=== PATIENT | female | born 1990 | race Caucasian/White ===

== ENCOUNTER → 2019-04-04 | Outpatient (CLI) | payer OTHER ==
--- NOTE | 2019-04-04 13:00 | Diagnostic Imaging Report ---
INDICATION: survey. TECHNIQUE: Multiple Real-time grayscale images were obtained over the gravid uterus. COMPARISON: None FINDINGS: There is a single live fetus in a breech presentation. The heart rate was recorded at 133 BPM. The placenta is anterior. The amniotic fluid index is 14.4 cm. The cervical length is 7.3 cm. The survey demonstrates the kidneys, bladder, and stomach to be unremarkable. The brain is unremarkable. There is a four-chamber heart. There is a three-vessel cord with normal insertion. The spine is unremarkable. MEASUREMENTS: Biometrical measurements are as follows: Biparietal 4.81 cm, age 20 weeks 4 days. Head circumference 18.51 cm, age 21 weeks 0 days. Abdominal circumference 15.96 cm, age 21 weeks 1 days. Femur length 3.58 cm, age 21 weeks 3 days. Sonographic estimate age: 21 weeks 1 days. Sonographic estimated date of delivery: 08/14/2019. Estimated Weight: 402 gm (+/- 59 gm). LMP percentile: 52%. heart rate: 133 beats per minute. number: 1 of 1. IMPRESSION: Single live IUP of 21 weeks 1 day gestational age. The estimated date of confinement sonographically is 08/14/2019. Dictated by: Dictated on workstation # [id number]
== END ==
LOC: RAD 11:40
PROVIDERS: ATTEND Nurse Practitioner Women's Health
DX: Z36.89 Encounter for other specified antenatal screening (principal); Z3A.21 21 weeks gestation of pregnancy
CPT/HCPCS: 76805

== ENCOUNTER → 2019-06-29 | Outpatient (CLI) | payer OTHER ==
--- NOTE | 2019-06-29 11:58 | Diagnostic Imaging Report ---
INDICATION: Biophysical profile, gestational diabetes. TECHNIQUE: Multiple real-time grayscale images were obtained over the gravid uterus. COMPARISON: 04/04/2019 FINDINGS: A single live intrauterine gestation is identified in a cephalic presentation. The placenta is anteriorly located without evidence of placenta previa. No evidence of placental abruption. The cervix is closed measuring 4.3 cm. No cervical funneling. cardiac motion is documented at 132 bpm. Amniotic fluid index is within normal limits at 12.6 cm with the largest single pocket measuring 4.1 cm. anatomy was not specifically evaluated on this examination. biometrics are consistent with an estimated gestational age of 33 weeks and 5 days. Therefore, there is an estimated due date based on the examination of 08/12/2019. Findings are consistent with clinical dating. However, there is slight asymmetry of the biometrics with the head circumference measuring 35 weeks and 1 day with the abdominal circumference measuring 32 weeks and 2 days. Sonographic estimate age: 33 weeks 5 days. Sonographic estimated date of delivery: 08/12/19. Estimated Weight: 2069 gm (+/- 302 gm). LMP percentile: 29%. heart rate: 132 beats per minute. number: 1 of 1. Biophysical profile score: breathing movements: 2 out of 2 movements: 2 out of 2 tone and posterior: 2 out of 2 Amniotic fluid volume: 2 out of 2 Total score: 8 out of 8 IMPRESSION: Single live intrauterine gestation in a cephalic presentation with an estimated gestational age of 33 weeks and 5 days. Therefore, there is an estimated due date based on this examination of 08/12/2019. Findings are consistent with clinical dating and there has been adequate interval growth since the prior examination. Slight asymmetry in biometrics with the head measuring larger than the abdomen and femur by approximately 2-3 weeks. This may simply be physiologic for the patient at this time, though developing asymmetric intrauterine growth restriction should be considered. Therefore, recommend a follow-up ultrasound in 2 weeks to reevaluate evaluate growth. Biophysical profile score of 8 out of 8 Dictated by: Dictated on workstation # [id number]
== END ==
LOC: RAD 10:02
PROVIDERS: ATTEND Obstetrics & Gynecology
DX: O24.410 Gestational diabetes mellitus in pregnancy, diet controlled (principal); Z3A.23 23 weeks gestation of pregnancy
CPT/HCPCS: 76805; 76819

== ENCOUNTER → 2019-07-11 | Outpatient (CLI) | payer OTHER ==
--- NOTE | 2019-07-11 10:40 | Diagnostic Imaging Report ---
INDICATION: Gestational diabetes. TECHNIQUE: Multiple Real-time grayscale images were obtained over the gravid uterus. COMPARISON: 06/29/2019. FINDINGS: There is a single living intrauterine . Biometry correlates with a gestational age of 35 weeks 4 days. The fetus is in cephalic presentation. There is a normal volume of amniotic fluid. The placenta is anterior with no previa. The heart rate is 116 BPM and regular. The biophysical profile score is 8 out of 8. Biometrical measurements are as follows: Biparietal 8.92 cm, age 36 weeks 1 days. Head circumference 32.96 cm, age 37 weeks 4 days. Abdominal circumference 31.35 cm, age 35 weeks 2 days. Femur length 6.44 cm, age 33 weeks 2 days. Sonographic estimate age: 35 weeks 4 days. Sonographic estimated date of delivery: 08/11/19. Estimated Weight: 2580 gm (+/- 377 gm). LMP percentile: 48%. heart rate: 116 beats per minute. number: 1 of 1. IMPRESSION: Single living intrauterine fetus with a sonographically estimated gestational age of 35 weeks 4 days and an estimated date of confinement of 08/11/2019. Normal biophysical profile score of 8 out of 8 Dictated by: Dictated on workstation # [id number]
== END ==
LOC: RAD 08:30
PROVIDERS: ATTEND Obstetrics & Gynecology
DX: O24.410 Gestational diabetes mellitus in pregnancy, diet controlled (principal); Z3A.35 35 weeks gestation of pregnancy
CPT/HCPCS: 76805; 76819

== ENCOUNTER 2019-07-28 10:33 | Outpatient (CLI) | payer OTHER ==
[~2019-07-28] VITALS: Ht 160 cm; Wt 74.6 kg
--- NOTE | 2019-07-28 10:40 | NUR ---
TESSIE HUA presented to unit via from ED, accompanied by self , with c/o CONTRACTIONS. TESSIE HUA weighed, gowned, voided, and to bed. EFHM and TOCO applied, VS taken. TESSIE HUA oriented to bed controls, call light, TV, heat, and A/C controls.
[2019-07-28 11:15] VITALS: BP 123/83
--- NOTE | 2019-07-28 11:17 | NUR ---
Notified Dr Lan of outpt admission with irregular contractions - will defer pt to Dr Teran whom is internal control specialist.
--- NOTE | 2019-07-28 11:57 | NUR ---
Dr Teran called with 2 pts admission. 1209 Physician returned call - informed physician of , 37.3 weeks with contractions 6-8 minutes apart and 1cm with thick cervix and reactive strip. Will observe for another hour and re check cervix.
[2019-07-28] MEDS ORDERED: ACYC400T PO (13:03)
[2019-07-28] MEDS ORDERED: PNV1TABL94 PO (13:03)
--- NOTE | 2019-07-28 13:10 | NUR ---
Vag exam external os in 2-3cms but internal os is 1 cm and thick. Discharged to home with instructions of when to return. Verbalized understanding of written and verbal instructions.
--- NOTE | 2019-07-29 08:26 | Physician Query-Final Dx ---
JOSÉ FLAHERTY 07/29/19 0826: Clinic Account Progress/Dx Physician Query: Please give diagnosis Please include # weeks gestation Date of Service Jul 28, 2019 at 10:33 ROXANE JONES DO 07/29/19 1159: Clinic Account Progress/Dx DIAGNOSIS: Diagnosis 37 week IUP GDMA2 Uterine contractions JOSÉ FLAHERTY July 29, 2019 08:26 ROXANE JONES DO July 29, 2019 11:59
== END 2019-07-28 13:31 | disposition home or self-care (01) ==
LOC: WSo 10:33 → LDRP 10:33 → WSo 13:31
PROVIDERS: ATTEND Obstetrics & Gynecology
DX: O24.419 Gestational diabetes mellitus in pregnancy, unspecified control (principal); O62.9 Abnormality of forces of labor, unspecified; Z3A.37 37 weeks gestation of pregnancy
CPT/HCPCS: 99214

== ENCOUNTER 2019-08-09 06:59 | Inpatient (IN) | payer OTHER ==
[2019-08-09] VITALS (52 sets, daily range): BP systolic 112–157; BP diastolic 58–97
[~2019-08-09] VITALS: Ht 160 cm; Wt 76.0 kg
[~2019-08-09 06:59] MED LIST: ACYC400T PO; PNV1TABL94 PO
--- NOTE | 2019-08-09 07:02 | NUR ---
TESSIE HUA presented to unit via ambulatory from ED, accompanied by Garcia, with c/o INDUCTION. TESSIE HUA weighed, gowned, voided, and to bed. EFHM and TOCO applied, VS taken. TESSIE HUA oriented to bed controls, call light, TV, heat, and A/C controls.
--- OUTSIDE RECORDS SUMMARY | 2019-08-09 07:06 | XMS REPORT ---
Author Author Kaylah Pinzon [facility] Address [address] [place], [place] [id number] Care Team Providers Care Ux Architect Name Role Phone Ricardo Pinzon PCP Roxane Calixto PreferredProvider Unavailable Allergies and Adverse Reactions Name Reaction Notes codeine sulfate passed out Plan of Treatment Planned Activity Comments Planned Date Planned Time Plan/Goal HIV 1 antibody detection 06/16/2016 12:00 AM Urinalysis dipstick (done in clinic) 12/02/2017 12:0 0 AM Medications Active Name Start Date Estimated Completion Date SIG Co mments alprazolam 0.25 mg oral tablet 10/08/2018 t les 1 tablet by oral route 2 times a day for 30 days Name Start Date Expiration Date SIG Comments Diflucan 150 mg oral tablet 05/21/2009 05/22/2009 take 1 tablet (150 mg) by oral route once Phenergan 25 mg rectal suppository 05/24/2009 05/28/2009 insert 1 suppository (25 mg) by rectal route every 6 hours as needed for 4 days Zithromax Z-Chacho 250 mg oral tablet 04/12/2010 04/17/2010 take 2 tablets (500 mg) by oral route once daily for 1 day then 1 tablet (250 mg) by oral route once daily for 4 days acyclovir 400 mg oral tablet 09/02/2010 09/07/2010 mynor e 1 tablet by oral route 3 times a day for 5 days Diflucan 150 mg oral tablet 01/10/2011 01/12/2011 take 1 tablet (150 mg) by oral route today and repeat in one week permethrin 5 % topical cream 02/19/2011 02/20/2011 bert ly (thoroughly massage into skin from head to soles of feet) by topical route once leave on for 8-14 hours and then remove by thorough washing for 1 day Bactrim DS 800-160 mg oral tablet 07/14/2013 07/24/2013 take 1 tablet by oral route 2 times a day for 10 days Medrol (Chacho) 4 mg oral tablets,dose pack 07/14/2013 07/20/19 14 take as directed for 5 days Diflucan 150 mg oral tablet 05/24/2014 05/25/2014 take 1 tablet (150 mg) by oral route every 30 days for 1 day Zithromax Z-Chacho 250 mg oral tablet 07/24/2015 07/29/2015 take 2 tablets (500 mg) by oral route once daily for 1 day then 1 tablet (250 mg) by oral route once daily for 4 days prednisone 20 mg oral tablet 07/24/2015 08/01/2015 4x2 days 3x2 days 2x2 days 1x2 days Valtrex 1 gram oral tablet 01/15/2016 01/26/2016 take 1 tablet (1,000 mg) by oral route 2 times per day for 1 day Zithromax Z-Chacho 250 mg oral tablet 03/05/2016 03/10/2016 take 2 tablets (500 mg) by oral route once daily for 1 day then 1 tablet (250 mg) by oral route once daily for 4 days amoxicillin 875 mg oral tablet 06/03/2017 t les 1 tablet (875 mg) by oral route every 12 hours for 7 days sulfamethoxazole-trimethoprim 800-160 mg oral tablet 12/03/2017 12/10/2017 take 1 tablet by oral route every 12 hours for 7 days Lexapro 5 mg oral tablet 12/14/2017 03/14/2018 take 1 tablet (5 mg) by oral route once daily for 30 days acyclovir 400 mg oral tablet 2018 04/09/2018 mynor e 1 tablet (400 mg) by oral route every 8 hours for 5 days Sprintec (28) 0.25-35 mg-mcg oral tablet 2018 019 take 1 tablet by oral route once daily for 84 days clorazepate dipotassium 3.75 mg oral tablet 04/12/201805/12 take 1 tablet (3.75 mg) by oral route 2 times per day for 30 days Protonix 20 mg oral tablet,delayed release (DR/EC) 04/21/2018 06/20/2018 take 1 tablet (20 mg) by oral route once daily for 30 days Carafate 1 gram oral tablet 05/03/2018 06/02/2018 take 1 tablet (1 gram) by oral route 4 times per day on an empty stomach 1 hour before meals and at bedtime for 14 days (dissolve in small amount of water and drink) Medrol (Chacho) 4 mg oral tablets,dose pack 05/10/2018 05/15/19 19 take as directed for 5 days Discontinued Name Start Date Discontinued Date SIG Comments Bactrim DS 800-160 mg oral tablet 05/21/2009 07/30/2010 take 1 tablet by oral route 2 times per day Keflex 500 mg oral capsule 06/17/2010 07/30/2010 one PO TID Medrol (Chacho) 4 mg oral tablets,dose pack 06/17/2010 07/30/2010 take as directed Paxil 20 mg oral tablet 10/07/2010 05/16/2011 take 1 t ablet (20 mg) by oral route once daily Macrobid 100 mg oral capsule 10/30/2010 05/16/2011 mynor e 1 capsule by oral route 2 times a day Amiekristopher [facility] 27-400-1.13-250 [id number]-if-mg oral capsule 07/07/2011 04/21/2012 take 1 capsule by oral route once daily for 30 days lidocaine HCl 2 % mucous membrane gel 07/25/2011 04/05/2012 apply to affected area bid x 7 days Valtrex 500 mg oral tablet 01/21/2012 04/21/2012 take 1 tablet (500 mg) by oral route once daily for 30 days no meds 05/03/2014 acyclovir 400 mg oral tablet 12/17/2016 2018 mynor e 1 tablet (400 mg) by oral route 2 times per day Tamiflu 75 mg oral capsule 04/29/2017 05/19/2017 take 1 capsule (75 mg) by oral route 2 times per day for 5 days ciprofloxacin HCl 500 mg oral tablet 12/02/2017 12/03/2017 take 1 tablet by oral route daily for 5 days Xanax 0.25 mg oral tablet 12/07/2017 12/14/2017 take 1 /2 to 1 tablet bid prn anxiety clonazepam 0.5 mg oral tablet 12/14/2017 2018 ta ke 1 tablet by oral route once a day (at bedtime) Xanax oral 04/12/2018 Lo Loestrin Fe 1 mg-10 mcg (24)/10 mcg (2) oral tablet 8 2018 take 1 tablet by oral route once daily for 84 days Problem List Description Status Onset Herpes genitalis Active Papanicolaou smear of cervix with low gr charity squamous intraepithelial lesion (LGSIL) Active 05/16/2011 VICENTE (generalized anxiety disorder) Active 11/07 Vital Signs Date Time BP-Sys(mm[Hg] BP-Myra(mm[Hg]) HR(bpm) RR(rpm) Temp WT HT HC BMI BSA BMI Percentile O2 Sat(%) 03/14/2019 9:34:00 AM 120 mm[Hg] 72 mm[Hg] 11/23/2018 8:19:00 AM 122 mm[Hg] 80 mm[Hg] 84 {beats}/min 18 rpm 98.2 F 132 lbs 64 in 22.66 kg/m2 1.64 m2 98 % 08/06/2018 11:32:00 AM 124 mm[Hg] 82 mm[Hg] 82 {beats}/min 18 rpm 98.1 F 134 lbs 64 in 23.0008 kg/m2 1.6567 m2 98 % 05/10/2018 9:23:00 AM 110 mm[Hg] 70 mm[Hg] 88 {beats}/min 18 rpm 98.1 F 128 lbs 64 in 21.97 kg/m2 1.62 m2 98 % 05/03/2018 1:44:00 PM 110 mm[Hg] 80 mm[Hg] 77 {beats}/min 16 rpm 97.9 F 130 lbs 64 in 22.3142 kg/m2 1.6318 m2 98 % 04/12/2018 4:53:00 PM 106 mm[Hg] 66 mm[Hg] 78 {beats}/min 16 rpm 99.3 F 130.125 lbs 64 in 22.34 kg/m2 1.63 m2 97 % 03/11/2018 10:14:00 AM 112 mm[Hg] 73 mm[Hg] 75 {beats}/min 98.6 F 132 lbs 64 in 22.6575 kg/m2 1.6443 m2 2018 9:24:00 AM 122 mm[Hg] 78 mm[Hg] 78 {beats}/min 17 rpm 98.2 F 129.25 lbs 64 in 22.19 kg/m2 1.63 m2 100 % 01/13/2018 4:29:00 PM 110 mm[Hg] 60 mm[Hg] 58 {beats}/min 16 rpm 98.2 F 129.25 lbs 64 in 22.1855 kg/m2 1.6271 m2 100 % 12/14/2017 8:49:00 AM 118 mm[Hg] 62 mm[Hg] 68 {beats}/min 16 rpm 98.4 F 133.25 lbs 64 in 22.87 kg/m2 1.65 m2 98 % 11/04/2017 4:35:00 PM 114 mm[Hg] 76 mm[Hg] 80 {beats}/min 16 rpm 98.8 F 125.25 lbs 64 in 21.4989 kg/m2 1.6017 m2 100 % 10/28/2017 4:57:00 PM 118 mm[Hg] 72 mm[Hg] 62 {beats}/min 18 rpm 98.1 F 128.25 lbs 64 in 22.01 kg/m2 1.62 m2 99 % 06/03/2017 5:49:00 PM 114 mm[Hg] 78 mm[Hg] 66 {beats}/min 18 rpm 97.8 F 128.5 lbs 64 in 22.0567 kg/m2 1.6223 m2 100 % 05/19/2017 11:19:00 AM 118 mm[Hg] 78 mm[Hg] 70 {beats}/min 18 rpm 97.2 F 128.25 lbs 64 in 22.01 kg/m2 1.62 m2 99 % 04/29/2017 3:48:00 PM 122 mm[Hg] 76 mm[Hg] 114 {beats}/min 18 rpm 99.8 F 125.125 lbs 64 in 21.4774 kg/m2 1.6009 m2 97 % 12/17/2016 9:02:00 AM 119 mm[Hg] 74 mm[Hg] 81 {beats}/min 97.1 F 13 1 lbs 64 in 22.49 kg/m2 1.64 m2 10/29/2016 2:07:00 PM 105 mm[Hg] 68 mm[Hg] 66 {beats}/min 16 rpm 98.2 F 124 lbs 64 in 21.2843 kg/m2 1.5937 m2 98 % 03/05/2016 8:37:00 AM 118 mm[Hg] 78 mm[Hg] 67 {beats}/min 16 rpm 98.2 F 148 lbs 63 in 26.22 kg/m2 1.73 m2 98 % 11/05/2015 3:43:00 PM 119 mm[Hg] 76 mm[Hg] 76 {beats}/min 98.1 F 137 lbs 63 in 24.2682 kg/m2 1.662 m2 02/12/2015 2:29:00 PM 120 mm[Hg] 70 mm[Hg] 74 {beats}/min 16 rpm 98 F 137 lbs 63 in 24.27 kg/m2 1.66 m2 97 % 05/24/2014 1:50:00 PM 118 mm[Hg] 79 mm[Hg] 92 {beats}/min 97.6 F 14 5 lbs 63 in 25.6853 kg/m2 1.7098 m2 05/03/2014 12:20:00 PM 118 mm[Hg] 64 mm[Hg] 72 {beats}/min 16 rpm 98.1 F 144 lbs 63 in 25.51 kg/m2 1.70 m2 99 % 07/14/2013 2:17:00 PM 122 mm[Hg] 62 mm[Hg] 94 {beats}/min 16 rpm 97.6 F 136.25 lbs 63 in 24.1354 kg/m2 1.6574 m2 98 % 04/07/2013 11:12:00 AM 118 mm[Hg] 64 mm[Hg] 68 {beats}/min 16 rpm 98.5 F 141 lbs 63 in 24.98 kg/m2 1.69 m2 98 % 04/21/2012 2:18:00 PM 110 mm[Hg] 60 mm[Hg] 70 {beats}/min 18 rpm 96.9 F 136.25 lbs 63 in 24.1354 kg/m2 1.6574 m2 97 % 04/05/2012 3:12:00 PM 118 mm[Hg] 84 mm[Hg] 76 {beats}/min 98.2 F 141.25 lbs 63 in 25.02 kg/m2 1.69 m2 07/07/2011 9:18:00 AM 118 mm[Hg] 67 mm[Hg] 79 {beats}/min 97.8 F 144.375 lbs 63 in 25.5746 kg/m2 1.7061 m2 05/16/2011 9:38:00 AM 117 mm[Hg] 77 mm[Hg] 76 {beats}/min 99.4 F 137.5 lbs 63 in 24.36 kg/m2 1.67 m2 01/29/2011 10:11:00 AM 112 mm[Hg] 78 mm[Hg] 80 {beats}/min 1 38.312 lbs 63 in 24.5007 kg/m2 1.6699 m2 10/30/2010 3:29:00 PM 110 mm[Hg] 78 mm[Hg] 76 {beats}/min 135 lbs 10/07/2010 9:39:00 AM 104 mm[Hg] 74 mm[Hg] 76 {beats}/min 138 lbs 10/03/2010 2:49:00 PM 118 mm[Hg] 72 mm[Hg] 78 {beats}/min 98.4 F 07/30/2010 1:27:00 PM 126 mm[Hg] 81 mm[Hg] 85 {beats}/min 99.3 F 141 lbs 64 in 24.2023 kg/m2 1.6994 m2 06/17/2010 3:48:00 PM 110 mm[Hg] 64 mm[Hg] 76 {beats}/min 143.5 62 lbs 01/31/2010 1:34:00 PM 112 mm[Hg] 76 mm[Hg] 76 {beats}/min 141.25 l bs 05/31/2009 10:46:00 AM 102 mm[Hg] 60 mm[Hg] 74 {beats}/min 130 lbs 05/21/2009 2:06:00 PM 118 mm[Hg] 74 mm[Hg] 76 {beats}/min 135 lbs Social History Name Description Comments Alcohol Use - Occasional Tobacco Current every day smoker History of Procedures Date Ordered Description Order Status 11/05/2015 12:00 AM SPECIMEN HANDLING OFFICE-LAB Reviewed 11/05/2015 12:00 AM CYTOPATH C/V THIN LAYER Reviewed 11/05/2015 12:00 AM HPV (DNA/RNA probe) Reviewed 05/16/2011 12:00 AM REMOVE INTRAUTERINE DEVICE Reviewed 05/16/2011 12:00 AM CYTOPATH C/V THIN LAYER Reviewed 05/16/2011 12:00 AM SPECIMEN HANDLING OFFICE-LAB Reviewed 07/07/2011 12:00 AM CYTOPATH C/V THIN LAYER Reviewed 07/07/2011 12:00 AM SPECIMEN HANDLING OFFICE-LAB Reviewed 07/07/2011 12:00 AM N.GONORRHOEAE DNA AMP PROB Reviewed 07/07/2011 12:00 AM CHLAMYDIA CULTURE Reviewed 07/07/2011 12:00 AM OBSTETRIC PANEL Reviewed 07/07/2011 12:00 AM HIV-1ANTIBODY Reviewed 07/07/2011 12:00 AM URINALYSIS AUTO W/SCOPE Reviewed 07/07/2011 12:00 AM TRANSVAGINAL US OBSTETRIC Reviewed 03/05/2016 12:00 AM THER/PROPH/DIAG INJ SC/IM Reviewed 03/05/2016 12:00 AM Decadron 8mg Injection Reviewed 03/05/2016 12:00 AM Depo-Medrol 80mg Injection Reviewed 03/05/2016 12:00 AM BEHAV CHNG SMOKING 3-10 MIN Reviewed 10/14/2011 12:00 AM OB US >/= 14 WKS SNGL FETUS Reviewed 12/11/2011 12:00 AM GLUCOSE TEST Reviewed 12/11/2011 12:00 AM COMPLETE CBC W/AUTO DIFF WBC Reviewed 12/11/2011 12:00 AM Type and screen Reviewed 12/17/2016 10:42 AM URINE TEST Reviewed 12/17/2016 12:00 AM SPECIMEN HANDLING OFFICE-LAB Reviewed 12/17/2016 12:00 AM CYTOPATH C/V THIN LAYER Reviewed 01/28/2012 12:00 AM CULTURE OTHR SPECIMN AEROBIC Reviewed 04/05/2012 12:00 AM CYTOPATH C/V MANUAL Reviewed 04/05/2012 12:00 AM SPECIMEN HANDLING OFFICE-LAB Reviewed 06/03/2017 12:00 AM Decadron 8mg Injection Reviewed 06/03/2017 12:00 AM Depo-Medrol 80mg Injection Reviewed 06/03/2017 12:00 AM Rocephin 1 gram Injection Reviewed 06/03/2017 12:00 AM THER/PROPH/DIAG INJ SC/IM Reviewed 12/02/2017 11:17 AM URINALYSIS AUTO W/O SCOPE Reviewed 12/02/2017 12:00 AM URINE BACTERIA CULTURE Reviewed 01/15/2018 12:00 AM US EXAM ABDOM COMPLETE Returned 01/13/2018 12:00 AM ROUTINE VENIPUNCTURE Reviewed 01/13/2018 12:00 AM BL SMEAR W/DIFF WBC COUNT Returned 01/13/2018 12:00 AM COMPREHEN METABOLIC PANEL Returned 01/13/2018 12:00 AM ASSAY OF AMYLASE Returned 01/13/2018 12:00 AM ASSAY OF LIPASE Returned 01/13/2018 12:00 AM C-REACTIVE PROTEIN Returned 2018 12:00 AM SPECIMEN HANDLING OFFICE-LAB Reviewed 2018 12:00 AM CHLAMYDIA CULTURE Reviewed 2018 12:00 AM N.GONORRHOEAE DNA AMP PROB Reviewed 2018 12:00 AM CYTOPATH C/V THIN LAYER Reviewed 2018 12:00 AM DETECT AGENT NOS DNA AMP Reviewed 2018 12:00 AM TRICHOMONAS VAGINALIS AMPLIF Reviewed 03/11/2018 10:21 AM URINE TEST Reviewed 03/11/2018 12:00 AM BX/CURETT OF CERVIX W/SCOPE Reviewed 03/11/2018 12:00 AM EXAM/BIOPSY OF VAG W/SCOPE Reviewed 03/11/2018 12:00 AM ENDOCERV CURETTAGE W/SCOPE Reviewed 08/03/2018 12:00 AM TB INTRADERMAL TEST Reviewed 11/20/2018 12:00 AM THER/PROPH/DIAG INJ SC/IM Reviewed 11/20/2018 12:00 AM Decadron 8mg Injection Reviewed 11/20/2018 12:00 AM Depo-Medrol 80mg Injection Reviewed 11/20/2018 12:00 AM Rocephin 1 gram Injection Reviewed 01/17/2019 8:32 AM URINE TEST Reviewed 05/03/2014 12:00 AM THER/PROPH/DIAG INJ SC/IM Reviewed 05/03/2014 12:00 AM Decadron, Per 1 Mg [facility] [place] [address]-63 Re viewed 05/03/2014 12:00 AM Depo-Medrol, Per 80 Mg [facility] [place]3764-3494-51 Reviewed 07/30/2010 12:00 AM CYTOPATH TBS C/V MANUAL Reviewed 07/30/2010 12:00 AM SPECIMEN HANDLING OFFICE-LAB Reviewed 07/30/2010 12:00 AM CHLAMYDIA CULTURE Reviewed 07/30/2010 12:00 AM N.GONORRHOEAE DNA AMP PROB Reviewed 07/30/2010 12:00 AM HTLV/HIV CONFIRMJ ANTIBODY Reviewed 07/30/2010 12:00 AM HEPATITIS B SURFACE AG EIA Reviewed 07/30/2010 12:00 AM HEPATITIS C AB TEST Reviewed 07/30/2010 12:00 AM SYPHILIS TEST NON-TREP QUAL Reviewed 07/30/2010 12:00 AM HERPES SIMPLEX SESAR ANTBDY Reviewed 07/30/2010 12:00 AM HIV-1ANTIBODY Reviewed 05/24/2014 12:00 AM SPECIMEN HANDLING OFFICE-LAB Reviewed 05/24/2014 12:00 AM CYTOPATH C/V THIN LAYER Reviewed 10/03/2010 12:00 AM URINE TEST Reviewed 10/03/2010 12:00 AM BX/CURETT OF CERVIX W/SCOPE Reviewed 10/30/2010 12:00 AM URINALYSIS AUTO W/O SCOPE Reviewed Results Summary Date and Description Results 08/06/2011 4:27 PM WBC 8.4 RBC 4.22 HGB 12.90 g /dLHCT 36.70 %MCV 87.0 fLMCH 30.60 pgMCHC 35.10 g/dLRDW SD 39 RDW CV 12.20 %MPV 10.0 fLPLT 277 NRBC# 0.00 NRBC% 0.0 %NEUT 72.0 %%LYMP 20.70 %%MONO 5.40 %%EOS 1.70 %%BASO 0.20 %#NEUT 6.04 #LYMP 1.74 #MONO 0.45 #EOS 0.14 #BASO 0.02 MANUAL DIFF NOT IND COLOR STRAW APPEARANCE CLEAR SPEC GRAV 1.010 pH 6.5 PROTEIN NEGATIVE GLUCOSE NEGATIVE KETONE NEGATIVE BILIRUBIN NEGATIVE BLOOD NEGATIVE NITRITE NEGATIVE LEUK SCREEN NEGATIVE WBC/HPF NEGATIVE RBC/HPF NEGATIVE CASTS/LPF NEGATIVE CRYSTALS NEGATIVE MUCOUS THRDS NEGATIVE BACTERIA NEGATIVE EPITH CELLS FEW SQUAMOUS TRICHOMONAS NEGATIVE YEAST NEGATIVE CULT ORDERED YES 12/11/2011 10:15 AM WBC 9.0 RBC 4.04 HGB 12.50 g /dLHCT 36.10 %MCV 89.0 fLMCH 30.90 pgMCHC 34.60 g/dLRDW SD 40 RDW CV 12.60 %MPV 9.80 fLPLT 234 NRBC# 0.00 NRBC% 0.0 %NEUT 76.0 %%LYMP 17.70 %%MONO 5.40 %%EOS 0.80 %%BASO 0.10 %#NEUT 6.82 #LYMP 1.59 #MONO 0.48 #EOS 0.07 #BASO 0.01 MANUAL DIFF NOT IND ABO/Rh Type A Positive Antibody Screen-Gel Negative 12/17/2016 10:42 AM Test, Urine negati ve 12/02/2017 11:17 AM Clarity Ur clear Urine-Color yuni Glucose Ur-sCnc neg Bilirub Ur Ql neg Ketones Ur Ql Strip neg Sp Gr Ur Qn 1.010 Hgb Ur Ql Strip mod pH Ur- LsCnc 7.0 Prot Ur Ql Strip 30 mg/dL Urobilinogen Ur-mCnc 0.2 E.U./dL Nitrite Ur Ql Strip neg WBC # Ur mod 03/11/2018 10:38 AM Test, Urine negati ve 01/17/2019 8:32 AM Test, Urine Positi ve History Of Immunizations Name Date Admin Mfg Name Mfg Code Trade Name Lot# Route Inj Vis Given Vis Pub CVX Tdap 03/22/2012 Not Entered NE Not Entered Not Entered Not E ntered 03/31/2012 03/30/2019 999 Influenza 09/29/2011 Not Entered NE Not Entered Not Entered N ot Entered 03/31/2012 03/30/2019 111 History of Past Illness Name Date of Onset Comments Cellulitis May 21 2009 2:08PM Urinary Tract Infection May 21 2009 2:08PM Routine gynecological examination May 31 2009 10:47AM Herpes genitalis Papanicolaou smear of cervix with low gr charity squamous intraepithelial lesion (LGSIL) 05/16/2011 Bronchitis, Acute Jan 31 2010 1:34PM Seasonal Allergies Jan 31 2010 1:34PM Pharyngitis, Acute Jan 31 2010 1:34PM Cough Jun 17 2010 3:48PM Post-nasal drainage Jun 17 2010 3:48PM Upper Respiratory Infection Jun 17 2010 3:48PM Routine gynecological examination Jul 30 2010 1:27PM High-Risk Sexual Behavior Jul 30 2010 1:27PM Special investigations and examinations; examination or test; examination or test, negative result Oct 03 2010 2:57PM Low grade squamous intraepithelial lesion (LGSIL) on P ap smear Oct 03 2010 2:47PM Anxiety Disorder Oct 07 2010 9:37AM Carbuncle/Furuncle Oct 07 2010 9:37AM VICENTE (generalized anxiety disorder) 11/07/2016 Dysuria Oct 30 2010 3:27PM Urinary Tract Infection Oct 30 2010 3:27PM Scabies Jan 29 2011 10:07AM IUD removal May 16 2011 10:13AM Papanicolaou smear of cervix with low gr charity squamous intraepithelial lesion (LGSIL) May 16 2011 9:42AM test confirmed positive Jul 07 2011 9:22AM , Other Normal Sep 24 2011 3:23PM , Other Normal Dec 11 2011 9:10AM Group B Strep Screening, Jan 28 2012 9:32AM , Other Normal Jan 28 2012 9:32AM Post- Follow-Up Apr 05 2012 3:14PM Postoperative Follow-up: Cholecystectomy Apr 21 2012 2:23PM [facility] Exam Apr 07 2013 11:13AM Seasonal Allergies Jul 14 2013 2:17PM Post-nasal drainage Jul 14 2013 2:17PM Upper Respiratory Infection Jul 14 2013 2:17PM Allergic Rhinitis Jul 14 2013 2:17PM Upper Respiratory Infection May 03 2014 12:23PM Respiratory System And Chest Symptoms May 03 2014 12:23PM Sinus pressure May 03 2014 12:23PM Routine gynecological examination May 24 2014 1:55PM Herpes Genitalis May 24 2014 1:55PM Eustachian tube dysfunction, bilateral Feb 12 2015 2:29PM Mild Chronic Seasonal Allergies Feb 12 2015 2:29PM Acute pharyngitis, unspecified etiology Feb 12 2015 2:29PM Moderate Acute Post-nasal drainage Feb 12 2015 2:29PM Moderate Acute Ear pressure, bilateral Feb 12 2015 2:29PM Routine gynecological examination Nov 05 2015 3:46PM Moderate Acute Cough Mar 05 2016 8:39AM Acute bronchitis, unspecified organism Mar 05 2016 8:39AM Mild Acute Post-nasal drainage Mar 05 2016 8:39AM Smoker Mar 05 2016 8:39AM HIV exposure Jun 16 2016 9:55AM VICENTE (generalized anxiety disorder) Oct 29 2016 2:07PM Routine gynecological examination Dec 17 2016 9:07AM Counseling for control, oral contraceptives Dec 17 9:07AM Contraceptive management Dec 17 2016 9:07AM Influenza Apr 29 2017 3:51PM Anxiety May 19 2017 11:27AM Cough Jun 03 2017 5:55PM Sinusitis, Acute Jun 03 2017 5:55PM Cough Apr 29 2017 3:51PM Fever Apr 29 2017 3:51PM Plantar wart of both feet Oct 28 2017 5:03PM Plantar wart of both feet Nov 04 2017 4:39PM Dysuria Dec 02 2017 11:17AM UTI (urinary tract infection) Dec 02 2017 11:17AM Anxiety Dec 14 2017 8:55AM Painful tongue Dec 14 2017 8:55AM Right upper quadrant abdominal pain of unknown etiology Jan 13 2018 4:38PM Right upper quadrant pain Jan 15 2018 9:09AM Routine gynecological examination 2018 9:48AM Contraceptive management 2018 9:48AM Herpes genitalis in women 2018 9:48AM Screening examination for sexually transmitted disease Jan 282017 9:48AM Encounter for test, result negative Mar 11 2018 10 :21AM Atypical squamous cells of undetermined significance on cytologic smear of cervix (ASC-US) Mar 11 2018 10:41AM Cervical high risk human papillomavirus (HPV) DNA test positive Mar 11 2018 10:41AM Gastritis Apr 12 2018 4:58PM Anxiety Apr 12 2018 4:58PM Abdominal pain; epigastric May 03 2018 1:44PM Allergic contact dermatitis, unspecified trigger May 10 2018 9:26AM VICENTE (generalized anxiety disorder) May 10 2018 9:26AM Encounter for pre-employment examination Aug 06 2018 11:33AM Dysfunction of both eustachian tubes Nov 23 2018 8:17AM Sinus pressure Nov 23 2018 8:17AM Upper respiratory tract infection, unspecified type Nov 23 8:17AM tb skin test Nov 23 2018 12:50PM Amenorrhea Jan 17 2019 8:32AM Dizziness Mar 14 2019 5:42PM Payers Insurance Name Company Name Plan Name Plan Number Policy Number [place] Group Number Start Date [employer] [facility] [id number] N/ A [employer] [facility] [id number] N/A [employer] [facility] [id number] N/ A [facility] Occupational Medicine [id number] N/A [employer] [facility] [id number] N/ A History of Encounters Visit Date Visit Type Provider 03/14/2019 Nurse visit Ricardo Pinzon GENERAL LOT ATTENDANT 12/13/2018 Nurse visit Lizy sanchez GENERAL LOT ATTENDANT 11/20/2018 Office visit ROXANE BONE 08/06/2018 Office visit ROXANE BONE 08/03/2018 Nurse visit ROXANE BONE 05/10/2018 Office visit ROXANE BONE 05/03/2018 Office visit Roxane Arteaga MD 04/12/2018 Office visit Ricardo Pinzon GENERAL LOT ATTENDANT 03/11/[address] Clara salmeron MD 2018 Office visit Lizy sanchez GENERAL LOT ATTENDANT 01/13/2018 Office visit 01/13/2018 Office visit Ricardo Pinzon GENERAL LOT ATTENDANT 12/14/2017 Office visit Apolinar Anthony NP 12/02/2017 Nurse visit Apolinar Anthony ENGINEERING MECHANIC 11/04/2017 Office visit Apolinar Anthony ENGINEERING MECHANIC 10/28/2017 Office visit Apolinar Anthony ENGINEERING MECHANIC 06/03/2017 Office visit Apolinar Anthony ENGINEERING MECHANIC 05/19/2017 Office visit Apolinar Anthony ENGINEERING MECHANIC 04/29/2017 Office visit Apolinar Anthony ENGINEERING MECHANIC 12/17/2016 Office visit Lizy MGerardo Echeverria n GENERAL LOT ATTENDANT 10/29/2016 Office visit ROXANE BONE 03/05/2016 Office visit ROXANE BONE 11/05/2015 Office visit Lizy Echeverria n GENERAL LOT ATTENDANT 02/12/2015 Office visit ROXANE BONE 05/24/2014 Office visit Lizy Echeverria n GENERAL LOT ATTENDANT 05/03/2014 Office visit 05/03/2014 Office visit ROXANE BONE 07/14/2013 Office visit ROXANE BONE 04/07/2013 Office visit ROXANE BONE 04/21/2012 Office visit Roxane Arteaga MD 04/14/2012 Hospital Roxane Arteaga MD 04/05/2012 Office visit Spencer Davis MD 02/23/2012 [facility] Spencer Davis MD 02/17/2012 Office visit Spencer Davis MD 02/12/2012 Office visit Spencer Davis MD 02/04/2012 Office visit Spencer Davis MD 01/28/2012 Office visit Spencer Davis MD 01/21/2012 Office visit Spencer Davis MD 01/07/2012 Office visit Spencer Davis MD 12/24/2011 Office visit Spencer Davis MD 12/11/2011 Office visit Spencer Davis MD 11/19/2011 Office visit Spencer Davis MD 11/11/2011 Hospital Spencer Davis MD 10/22/2011 Office visit Spencer Davis MD 09/24/2011 Office visit Spencer Davis MD 09/03/2011 Office visit Spencer Davis MD 08/06/2011 Office visit Spencer Davis MD 07/07/2011 Office visit Spencer Davis MD 05/16/2011 Office visit Spencer Davis MD 01/29/2011 Office visit ROXANE BONE 10/30/2010 Office visit Roxane Cobian 10/07/2010 Office visit Roxane Cobian 10/03/2010 Procedures Spencer Davis MD 07/30/2010 Office visit Spencer Davis MD 06/17/2010 Office visit Roxane Cobian 01/31/2010 Office visit Roxane Cobian 05/31/2009 Office visit Roxane Cobian 05/21/2009 Office visit Roxane Cobian
--- OUTSIDE RECORDS SUMMARY | 2019-08-09 07:06 | XMS REPORT ---
Author Author Kaylah JAMES [facility] Address [address] [place] [id number] Care Team Providers Care Treatment Supervisor Name Role Phone ROXANE JAMES PCP Roxane James PreferredProvider Unavailable Allergies and Adverse Reactions Name Reaction Notes codeine sulfate passed out Plan of Treatment Planned Activity Comments Planned Date Planned Time Plan/Goal HIV 1 antibody detection 06/16/2016 12:00 AM Urinalysis dipstick (done in clinic) 12/02/2017 12:0 0 AM Tb Intradermal Test % 08/03/2018 12:00 AM Medications Active Name Start Date Estimated Completion Date SIG Co mments Sprintec (28) 0.25-35 mg-mcg oral tablet 2018 019 take 1 tablet by oral route once daily for 84 days alprazolam 0.25 mg oral tablet 10/08/2018 t [...] route every 8 hours for 5 days clorazepate dipotassium 3.75 mg oral tablet [...] 4 mg oral tablets,dose pack 05/10/2018 05/15/19 take as directed for 5 days Discontinued [...] by oral route 2 times a day [facility] 27-400-1.13-250 zk-fzl-uw-mg oral capsule 07/07/2011 04/21/2012 take 1 capsule [...] HC BMI BSA BMI Percentile O2 Sat(%) 11/23/2018 8:19:00 AM 122 mm[Hg] 80 mm[Hg] 84 {beats}/min 18 rpm 98.2 F 132 lbs 64 in 22.6575 kg/m2 1.6443 m2 98 % 08/06/2018 11:32:00 AM 124 mm[Hg] 82 mm[Hg] 82 {beats}/min 18 rpm 98.1 F 134 lbs 64 in 23.00 kg/m2 1.66 m2 98 % 05/10/2018 9:23:00 AM 110 mm[Hg] 70 mm[Hg] 88 {beats}/min 18 rpm 98.1 F 128 lbs 64 in 21.9709 kg/m2 1.6192 m2 98 % 05/03/2018 1:44:00 PM 110 mm[Hg] 80 mm[Hg] 77 {beats}/min 16 rpm 97.9 F 130 lbs 64 in 22.31 kg/m2 1.63 m2 98 % 04/12/2018 4:53:00 PM 106 mm[Hg] 66 mm[Hg] 78 {beats}/min 16 rpm 99.3 F 130.125 lbs 64 in 22.3357 kg/m2 1.6326 m2 97 % 03/11/2018 10:14:00 AM 112 mm[Hg] 73 mm[Hg] 75 {beats}/min 98.6 F 132 lbs 64 in 22.66 kg/m2 1.64 m2 2018 9:24:00 AM 122 mm[Hg] 78 mm[Hg] 78 {beats}/min 17 rpm 98.2 F 129.25 lbs 64 in 22.1855 kg/m2 1.6271 m2 100 % 01/13/2018 4:29:00 PM 110 mm[Hg] 60 mm[Hg] 58 {beats}/min 16 rpm 98.2 F 129.25 lbs 64 in 22.19 kg/m2 1.63 m2 100 % 12/14/2017 8:49:00 AM 118 mm[Hg] 62 mm[Hg] 68 {beats}/min 16 rpm 98.4 F 133.25 lbs 64 in 22.8721 kg/m2 1.6521 m2 98 % 11/04/2017 4:35:00 PM 114 mm[Hg] 76 mm[Hg] 80 {beats}/min 16 rpm 98.8 F 125.25 lbs 64 in 21.50 kg/m2 1.60 m2 100 % 10/28/2017 4:57:00 PM 118 mm[Hg] 72 mm[Hg] 62 {beats}/min 18 rpm 98.1 F 128.25 lbs 64 in 22.0138 kg/m2 1.6208 m2 99 % 06/03/2017 5:49:00 PM 114 mm[Hg] 78 mm[Hg] 66 {beats}/min 18 rpm 97.8 F 128.5 lbs 64 in 22.06 kg/m2 1.62 m2 100 % 05/19/2017 11:19:00 AM 118 mm[Hg] 78 mm[Hg] 70 {beats}/min 18 rpm 97.2 F 128.25 lbs 64 in 22.0138 kg/m2 1.6208 m2 99 % 04/29/2017 3:48:00 PM 122 mm[Hg] 76 mm[Hg] 114 {beats}/min 18 rpm 99.8 F 125.125 lbs 64 in 21.48 kg/m2 1.60 m2 97 % 12/17/2016 9:02:00 AM 119 mm[Hg] 74 mm[Hg] 81 {beats}/min 97.1 F 13 1 lbs 64 in 22.4859 kg/m2 1.638 m2 10/29/2016 2:07:00 PM 105 mm[Hg] 68 mm[Hg] 66 {beats}/min 16 rpm 98.2 F 124 lbs 64 in 21.28 kg/m2 1.59 m2 98 % 03/05/2016 8:37:00 AM 118 mm[Hg] 78 mm[Hg] 67 {beats}/min 16 rpm 98.2 F 148 lbs 63 in 26.2168 kg/m2 1.7274 m2 98 % 11/05/2015 3:43:00 PM 119 mm[Hg] 76 mm[Hg] 76 {beats}/min 98.1 F 137 lbs 63 in 24.27 kg/m2 1.66 m2 02/12/2015 2:29:00 PM 120 mm[Hg] 70 mm[Hg] 74 {beats}/min 16 rpm 98 F 137 lbs 63 in 24.2682 kg/m2 1.662 m2 97 % 05/24/2014 1:50:00 PM 118 mm[Hg] 79 mm[Hg] 92 {beats}/min 97.6 F 14 5 lbs 63 in 25.69 kg/m2 1.71 m2 05/03/2014 12:20:00 PM 118 mm[Hg] 64 mm[Hg] 72 {beats}/min 16 rpm 98.1 F 144 lbs 63 in 25.5082 kg/m2 1.7039 m2 99 % 07/14/2013 2:17:00 PM 122 mm[Hg] 62 mm[Hg] 94 {beats}/min 16 rpm 97.6 F 136.25 lbs 63 in 24.14 kg/m2 1.66 m2 98 % 04/07/2013 11:12:00 AM 118 mm[Hg] 64 mm[Hg] 68 {beats}/min 16 rpm 98.5 F 141 lbs 63 in 24.9768 kg/m2 1.6861 m2 98 % 04/21/2012 2:18:00 PM 110 mm[Hg] 60 mm[Hg] 70 {beats}/min 18 rpm 96.9 F 136.25 lbs 63 in 24.14 kg/m2 1.66 m2 97 % 04/05/2012 3:12:00 PM 118 mm[Hg] 84 mm[Hg] 76 {beats}/min 98.2 F 141.25 lbs 63 in 25.0211 kg/m2 1.6876 m2 07/07/2011 9:18:00 AM 118 mm[Hg] 67 mm[Hg] 79 {beats}/min 97.8 F 144.375 lbs 63 in 25.57 kg/m2 1.71 m2 05/16/2011 9:38:00 AM 117 mm[Hg] 77 mm[Hg] 76 {beats}/min 99.4 F 137.5 lbs 63 in 24.3568 kg/m2 1.665 m2 01/29/2011 10:11:00 AM 112 mm[Hg] 78 mm[Hg] 80 {beats}/min 1 38.312 lbs 63 in 24.50 kg/m2 1.67 m2 10/30/2010 3:29:00 PM 110 mm[Hg] 78 [...] 03/11/2018 12:00 AM ENDOCERV CURETTAGE W/SCOPE Reviewed 11/20/2018 12:00 AM THER/PROPH/DIAG INJ SC/IM Reviewed 11/20/2018 12:00 AM Decadron 8mg Injection Reviewed 11/20/2018 12:00 AM Depo-Medrol 80mg Injection Reviewed 11/20/2018 12:00 AM Rocephin 1 gram Injection Reviewed 05/03/2014 12:00 AM THER/PROPH/DIAG INJ SC/IM Reviewed 05/03/2014 12:00 AM Decadron, Per 1 Mg [facility]# [address]-19 Re viewed 05/03/2014 12:00 AM Depo-Medrol, Per 80 Mg [facility]#6829-4907-52 Reviewed 07/30/2010 12:00 AM CYTOPATH TBS C/V [...] 03/11/2018 10:38 AM Test, Urine negati ve History Of Immunizations Name Date Admin [...] Counseling for control, oral contraceptives Dec 17 201 7 9:07AM Contraceptive management Dec 17 2016 9:07AM [...] respiratory tract infection, unspecified type Nov 23 019 8:17AM tb skin test Nov 23 2018 12:50PM Payers Insurance Name Company Name Plan Name Plan Number Policy Number [place] Group Number Start Date BCBS Bcbs [facility] [id number] N/ A [facility] Med Occupational Medicine [id number] N/A BCBS [employer]cbs [facility] [id number] N/ A BCBS [employer] [facility] [id number] N/A History of Encounters Visit Date Visit Type Provider 11/20/2018 Office visit ROXANE BONE 08/06/2018 Office visit ROXANE BONE 08/03/2018 Nurse visit ROXANE BONE 05/10/2018 Office visit ROXANE BONE 05/03/2018 Office visit Roxane Arteaga MD 04/12/2018 Office visit Ricardo Pinzon ROLLER PRESSER OPERATOR 03/11/[address] Clara salmeron MD 2018 Office visit Lizy sanchez ROLLER PRESSER OPERATOR 01/13/2018 Office visit 01/13/2018 Office visit Ricardo Pinzon ROLLER PRESSER OPERATOR 12/14/2017 Office visit Apolinar Anthony LUMBER STACKER OPERATOR 12/02/2017 Nurse visit Apolinar Anthony LUMBER STACKER OPERATOR 11/04/2017 Office visit Apolinar Anthony LUMBER STACKER OPERATOR 10/28/2017 Office visit Apolinar Anthony LUMBER STACKER OPERATOR 06/03/2017 Office visit Apolinar Anthony LUMBER STACKER OPERATOR 05/19/2017 Office visit Apolinar Anthony LUMBER STACKER OPERATOR 04/29/2017 Office visit Apolinar Anthony LUMBER STACKER OPERATOR 12/17/2016 Office visit Lizy sanchez ROLLER PRESSER OPERATOR 10/29/2016 Office visit ROXANE BONE 03/05/2016 Office visit ROXANE BONE 11/05/2015 Office visit Lizy Echeverria n ROLLER PRESSER OPERATOR 02/12/2015 Office visit ROXANE BONE 05/24/2014 Office visit Lizy Echeverria n ROLLER PRESSER OPERATOR 05/03/2014 Office visit 05/03/2014 Office visit ROXANE BONE 07/14/2013 Office visit ROXANE BONE 04/07/2013 Office visit ROXANE BONE 04/21/2012 Office visit Roxane Arteaga MD 04/14/2012 [facility] Roxane Arteaga MD 04/05/2012 Office visit Spencer Davis MD 02/23/2012 [facility] Spencer Davis MD 02/17/2012 Office visit Spencer Davis MD 02/12/2012 Office visit Spencer Davis MD 02/04/2012 Office visit Spencer Davis MD 01/28/2012 Office visit Spencer Davis MD 01/21/2012 Office visit Spencer Davis MD 01/07/2012 Office visit Spencer Davis MD 12/24/2011 Office visit Spencer Davis MD 12/11/2011 Office visit Spencer Davis MD 11/19/2011 Office visit Spencer Davis MD 11/11/2011 [facility] Spencer Davis MD 10/22/2011 Office visit Spencer Davis MD 09/24/2011 Office visit Spencer Davis MD 09/03/2011 Office visit Spencer Davis MD 08/06/2011 Office visit Spencer Davis MD 07/07/2011 Office visit Spencer Davis MD 05/16/2011 Office visit Spencer Davis MD 01/29/2011 Office visit ROXANE BONE 10/30/2010 Office visit Roxane PowersC 10/07/2010 Office visit Roxane BONE -C 10/03/2010 Procedures Spencer Davis MD 07/30/2010 Office visit Spencer Davis MD 06/17/2010 Office visit Roxane PowersC 01/31/2010 Office visit Roxane BONE -C 05/31/2009 Office visit Roxane Cobian 05/21/2009 Office visit Roxane Cobian
--- OUTSIDE RECORDS SUMMARY | 2019-08-09 07:06 | XMS REPORT ---
Author Author Kaylah Pinzon [facility] Address [address] [place], [place] [id number] Care Team Providers Care Printing Pressman Name Role Phone Ricardo Pinzon PCP Roxane [...] oral route 2 times a day [facility] 27-400-1.13-250 hj-otk-vw-mg oral capsule 07/07/2011 04/21/2012 take 1 capsule [...] 05/03/2014 12:00 AM Decadron, Per 1 Mg [facility]# [address]-91 Re viewed 05/03/2014 12:00 AM Depo-Medrol, Per 80 Mg [facility]#5225-3391-06 Reviewed 07/30/2010 12:00 AM CYTOPATH TBS C/V [...] cy Group Number Start Date BCBS Bcbs [facility] [id number] N/ A BCBS [employer]cbs [facility] [id number] N/A BCBS [employer]cbs [facility] [id number] N/ A [facility] Med Occupational Medicine [id number] N/A BCBS Bcbs [facility] [id number] N/ A History of Encounters Visit Date Visit Type Provider 03/14/2019 Nurse visit Ricardo Pinzon MAPLE PRODUCTS SUPERVISOR 12/13/2018 Nurse visit Lizy sanchez MAPLE PRODUCTS SUPERVISOR 11/20/2018 Office visit ROXANE BONE 08/06/2018 Office visit ROXANE BONE 08/03/2018 Nurse visit ROXANE BONE 05/10/2018 Office visit ROXANE BONE 05/03/2018 Office visit Roxane Arteaga MD 04/12/2018 Office visit Ricardo Pinzon MAPLE PRODUCTS SUPERVISOR 03/11/[address] Clara salmeron MD 2018 Office visit Lizy sanchez MAPLE PRODUCTS SUPERVISOR 01/13/2018 Office visit 01/13/2018 Office visit Ricardo Pinzon MAPLE PRODUCTS SUPERVISOR 12/14/2017 Office visit Apolinar Anthony NP 12/02/2017 Nurse visit Apolinar Anthony LOGISTICS ASSOCIATE 11/04/2017 Office visit Apolinar Anthony LOGISTICS ASSOCIATE 10/28/2017 Office visit Apolinar Anthony LOGISTICS ASSOCIATE 06/03/2017 Office visit Apolinar Anthony LOGISTICS ASSOCIATE 05/19/2017 Office visit Apolinar Anthony LOGISTICS ASSOCIATE 04/29/2017 Office visit Apolinar Anthony LOGISTICS ASSOCIATE 12/17/2016 Office visit Lizy MGerardo Echeverria n MAPLE PRODUCTS SUPERVISOR 10/29/2016 Office visit ROXANE BONE 03/05/2016 Office visit ROXANE BONE 11/05/2015 Office visit Lizy Echeverria n MAPLE PRODUCTS SUPERVISOR 02/12/2015 Office visit ROXANE BONE 05/24/2014 Office visit Lizy Echeverria n MAPLE PRODUCTS SUPERVISOR 05/03/2014 Office visit 05/03/2014 Office visit ROXANE BONE 07/14/2013 Office visit ROXANE BONE 04/07/2013 Office visit ROXANE BONE 04/21/2012 Office visit Roxane Arteaga MD 04/14/2012 Hospital Roxane Arteaga MD 04/05/2012 Office visit Spencer Davis MD 02/23/2012 [facility] Spencer Davis MD 02/17/2012 Office visit [...]
--- OUTSIDE RECORDS SUMMARY | 2019-08-09 07:07 | XMS REPORT ---
Author Author Kaylah JAMES [facility] Address [address] [place], [place] [id number] Care Team Providers Care Branding Machine Operator Name Role Phone ROXANE JAMES PCP Roxane [...] oral route once daily for 84 days Name Start Date Expiration Date SIG [...] in small amount of water and drink) alprazolam 0.25 mg oral tablet 05/10/2018 07/09/2018 t les 1 tablet by oral route 2 times a day for 30 days Medrol ([place]) 4 mg oral tablets,dose [...] by oral route 2 times a day [facility] 27-400-1.13-250 ba-ncx-di-mg oral capsule 07/07/2011 04/21/2012 take 1 capsule [...] HC BMI BSA BMI Percentile O2 Sat(%) 08/06/2018 11:32:00 AM 124 mmHg 82 mmHg 82 bpm 18 rpm 98.1 F 134 lbs 64 in 23.0008 kg/m 1.6567 m 98 % 05/10/2018 9:23:00 AM 110 mmHg 70 mmHg 88 bpm 18 rpm 98.1 F 128 lbs 64 in 21.97 kg/m2 1.62 m2 98 % 05/03/2018 1:44:00 PM 110 mmHg 80 mmHg 77 bpm 16 rpm 97.9 F 130 lbs 64 in 22.3142 kg/m 1.6318 m 98 % 04/12/2018 4:53:00 PM 106 mmHg 66 mmHg 78 bpm 16 rpm 99.3 F 130.125 lbs 64 in 22.34 kg/m2 1.63 m2 97 % 03/11/2018 10:14:00 AM 112 mmHg 73 mmHg 75 bpm 98.6 F 132 lbs 64 in 22.6575 kg/m 1.6443 m 2018 9:24:00 AM 122 mmHg 78 mmHg 78 bpm 17 rpm 98.2 F 129.25 lbs 64 in 22.19 kg/m2 1.63 m2 100 % 01/13/2018 4:29:00 PM 110 mmHg 60 mmHg 58 bpm 16 rpm 98.2 F 129.25 lbs 64 in 22.1855 kg/m 1.6271 m 100 % 12/14/2017 8:49:00 AM 118 mmHg 62 mmHg 68 bpm 16 rpm 98.4 F 133.25 lbs 64 i n 22.87 kg/m2 1.65 m2 98 % 11/04/2017 4:35:00 PM 114 mmHg 76 mmHg 80 bpm 16 rpm 98.8 F 125.25 lbs 64 in 21.4989 kg/m 1.6017 m 100 % 10/28/2017 4:57:00 PM 118 mmHg 72 mmHg 62 bpm 18 rpm 98.1 F 128.25 lbs 64 in 22.01 kg/m2 1.62 m2 99 % 06/03/2017 5:49:00 PM 114 mmHg 78 mmHg 66 bpm 18 rpm 97.8 F 128.5 lbs 64 in 22.0567 kg/m 1.6223 m 100 % 05/19/2017 11:19:00 AM 118 mmHg 78 mmHg 70 bpm 18 rpm 97.2 F 128.25 lbs 64 in 22.01 kg/m2 1.62 m2 99 % 04/29/2017 3:48:00 PM 122 mmHg 76 mmHg 114 bpm 18 rpm 99.8 F 125.125 lbs 64 in 21.4774 kg/m 1.6009 m 97 % 12/17/2016 9:02:00 AM 119 mmHg 74 mmHg 81 bpm 97.1 F 131 lbs 64 in 22.49 kg/m2 1.64 m2 10/29/2016 2:07:00 PM 105 mmHg 68 mmHg 66 bpm 16 rpm 98.2 F 124 lbs 64 in 21.2843 kg/m 1.5937 m 98 % 03/05/2016 8:37:00 AM 118 mmHg 78 mmHg 67 bpm 16 rpm 98.2 F 148 lbs 63 in 26.22 kg/m2 1.73 m2 98 % 11/05/2015 3:43:00 PM 119 mmHg 76 mmHg 76 bpm 98.1 F 137 lbs 63 in 24.2682 kg/m 1.662 m 02/12/2015 2:29:00 PM 120 mmHg 70 mmHg 74 bpm 16 rpm 98 F 137 lbs 63 in 24.27 kg/m2 1.66 m2 97 % 05/24/2014 1:50:00 PM 118 mmHg 79 mmHg 92 bpm 97.6 F 145 lbs 63 in 25.6853 kg/m 1.7098 m 05/03/2014 12:20:00 PM 118 mmHg 64 mmHg 72 bpm 16 rpm 98.1 F 144 lbs 63 in 25.5082 kg/m 1.70 m2 99 % 07/14/2013 2:17:00 PM 122 mmHg 62 mmHg 94 bpm 16 rpm 97.6 F 136.25 lbs 63 i n 24.14 kg/m2 1.6574 m 98 % 04/07/2013 11:12:00 AM 118 mmHg 64 mmHg 68 bpm 16 rpm 98.5 F 141 lbs 63 in 24.9768 kg/m 1.69 m2 98 % 04/21/2012 2:18:00 PM 110 mmHg 60 mmHg 70 bpm 18 rpm 96.9 F 136.25 lbs 63 i n 24.14 kg/m2 1.6574 m 97 % 04/05/2012 3:12:00 PM 118 mmHg 84 mmHg 76 bpm 98.2 F 141.25 lbs 63 in 25.0211 kg/m 1.69 m2 07/07/2011 9:18:00 AM 118 mmHg 67 mmHg 79 bpm 97.8 F 144.375 lbs 63 in 25.57 kg/m2 1.7061 m 05/16/2011 9:38:00 AM 117 mmHg 77 mmHg 76 bpm 99.4 F 137.5 lbs 63 in 24.3568 kg/m 1.67 m2 01/29/2011 10:11:00 AM 112 mmHg 78 mmHg 80 bpm 138.312 lbs 63 i n 24.50 kg/m2 1.6699 m 10/30/2010 3:29:00 PM 110 mmHg 78 mmHg 76 bpm 135 lbs 10/07/2010 9:39:00 AM 104 mmHg 74 mmHg 76 bpm 138 lbs 10/03/2010 2:49:00 PM 118 mmHg 72 mmHg 78 bpm 98.4 F 07/30/2010 1:27:00 PM 126 mmHg 81 mmHg 85 bpm 99.3 F 141 lbs 64 in 24.2023 kg/m 1.6994 m 06/17/2010 3:48:00 PM 110 mmHg 64 mmHg 76 bpm 143.562 lbs 01/31/2010 1:34:00 PM 112 mmHg 76 mmHg 76 bpm 141.25 lbs 05/31/2009 10:46:00 AM 102 mmHg 60 mmHg 74 bpm 130 lbs 05/21/2009 2:06:00 PM 118 mmHg 74 mmHg 76 bpm 135 lbs Social History Name Description Comments [...] 03/11/2018 12:00 AM ENDOCERV CURETTAGE W/SCOPE Reviewed 05/03/2014 12:00 AM THER/PROPH/DIAG INJ SC/IM Reviewed 05/03/2014 12:00 AM Decadron, Per 1 Mg [facility]# [address]-51 Re viewed 05/03/2014 12:00 AM Depo-Medrol, Per 80 Mg [facility]#3825-8423-69 Reviewed 07/30/2010 12:00 AM CYTOPATH TBS C/V [...] for pre-employment examination Aug 06 2018 11:33AM Payers Insurance Name Company Name Plan Name Plan Number Policy Number Cosme cy Group Number Start Date BCBS Bcbs [facility] [id number] N/ A BCBS [employer]cbs [facility] [id number] N/ A BCBS [employer]cbs [facility] [id number] N/A History of Encounters Visit Date Visit Type Provider 08/06/2018 Office visit ROXANE BONE 08/03/2018 Nurse visit ROXANE BONE 05/10/2018 Office visit ROXANE BONE 05/03/2018 Office visit Roxane Arteaga MD 04/12/2018 Office visit Ricardo Pinzon RN VISITING 03/11/[address] Clara salmeron MD 2018 Office visit Lizy sanchez RN VISITING 01/13/2018 Office visit 01/13/2018 Office visit Ricardo Pinzon RN VISITING 12/14/2017 Office visit Apolinar Anthony NP 12/02/2017 Nurse visit Apolinar Anthony NP 11/04/2017 Office visit Apolinar Anthony NP 10/28/2017 Office visit Apolinar Anthony NP 06/03/2017 Office visit Apolinar Anthony NP 05/19/2017 Office visit Apolinar Anthony SWITCH OPERATORS SUPERVISOR 04/29/2017 Office visit Apolinar Anthony NP 12/17/2016 Office visit Lizy sanchez RN VISITING 10/29/2016 Office visit ROXANE BONE 03/05/2016 Office visit ROXANE BONE 11/05/2015 Office visit Lizy sanchez RN VISITING 02/12/2015 Office visit ROXANE BONE 05/24/2014 Office visit Lizy sanchez RN VISITING 05/03/2014 Office visit 05/03/2014 Office visit ROXANE BONE 07/14/2013 Office visit ROXANE BONE 04/07/2013 Office visit ROXANE BONE 04/21/2012 Office visit Roxane Arteaga MD 04/14/2012 [facility] Roxane Arteaga MD 04/05/2012 Office visit Spencer Davis MD 02/23/2012 [facility] Spencer Davis MD 02/17/2012 Office visit Spencer Davis MD 02/12/2012 Office visit Spencer Davis MD 02/04/2012 Office visit Spencer Davis MD 01/28/2012 Office visit Spencer Davis MD 01/21/2012 Office visit Spencer Davis MD 01/07/2012 Office visit Spencer Davis MD 12/24/2011 Office visit Spencer Davis MD 12/11/2011 Office visit Spencer Davis MD 11/19/2011 Office visit Spencer Davis MD 11/11/2011 [facility] Spencer Davis MD 10/22/2011 Office visit Spencer Davis MD 09/24/2011 Office visit Spencer Davis MD 09/03/2011 Office visit Spencer Davis MD 08/06/2011 Office visit Spencer Davis MD 07/07/2011 Office visit Spencer Davis MD 05/16/2011 Office visit Spencer Davis MD 01/29/2011 Office visit ROXANE BONE 10/30/2010 Office visit Roxane BONE -C 10/07/2010 Office visit Roxane BONE -C 10/03/2010 Procedures Spencer Davis MD 07/30/2010 Office visit Spencer Davis MD 06/17/2010 Office visit Roxane BONE -C 01/31/2010 Office visit Roxane BONE -C 05/31/2009 Office visit Roxane OBNE -C 05/21/2009 Office visit Roxane BONE -C
--- OUTSIDE RECORDS SUMMARY | 2019-08-09 07:07 | XMS REPORT ---
Author Author Kaylah JAMES [facility] Address [address] [place] [id number] Care Team Providers Care Twister Operator Name Role Phone ROXANE JAMES PCP Roxane James PreferredProvider Unavailable Allergies and Adverse Reactions Name Reaction Notes codeine sulfate passed out Plan of Treatment Planned Activity Comments Planned Date Planned Time Plan/Goal HIV 1 antibody detection 06/16/2016 12:00 AM Urinalysis dipstick (done in clinic) 12/02/2017 12:0 0 AM Injection, Subcutaneous/IM 11/20/2018 12:00 AM Tb Intradermal Test % 08/03/2018 12:00 [...] by oral route 2 times a day [facility] 27-400-1.13-250 hs-kbh-rr-mg oral capsule 07/07/2011 04/21/2012 take 1 capsule [...] Percentile O2 Sat(%) 11/23/2018 8:19:00 AM 122 mmHg 80 mmHg 84 bpm 18 rpm 98.2 F 132 lbs 64 in 22.6575 kg/m 1.6443 m 98 % 08/06/2018 11:32:00 AM 124 mmHg 82 mmHg 82 bpm 18 rpm 98.1 F 134 lbs 64 in 23.00 kg/m2 1.66 m2 98 % 05/10/2018 9:23:00 AM 110 mmHg 70 mmHg 88 bpm 18 rpm 98.1 F 128 lbs 64 in 21.9709 kg/m 1.6192 m 98 % 05/03/2018 1:44:00 PM 110 mmHg 80 mmHg 77 bpm 16 rpm 97.9 F 130 lbs 64 in 22.31 kg/m2 1.63 m2 98 % 04/12/2018 4:53:00 PM 106 mmHg 66 mmHg 78 bpm 16 rpm 99.3 F 130.125 lbs 64 in 22.3357 kg/m 1.6326 m 97 % 03/11/2018 10:14:00 AM 112 mmHg 73 mmHg 75 bpm 98.6 F 132 lbs 64 in 22.66 kg/m2 1.64 m2 2018 9:24:00 AM 122 mmHg 78 mmHg 78 bpm 17 rpm 98.2 F 129.25 lbs 64 in 22.1855 kg/m 1.6271 m 100 % 01/13/2018 4:29:00 PM 110 mmHg 60 mmHg 58 bpm 16 rpm 98.2 F 129.25 lbs 64 in 22.19 kg/m2 1.63 m2 100 % 12/14/2017 8:49:00 AM 118 mmHg 62 mmHg 68 bpm 16 rpm 98.4 F 133.25 lbs 64 i n 22.8721 kg/m 1.6521 m 98 % 11/04/2017 4:35:00 PM 114 mmHg 76 mmHg 80 bpm 16 rpm 98.8 F 125.25 lbs 64 in 21.50 kg/m2 1.60 m2 100 % 10/28/2017 4:57:00 PM 118 mmHg 72 mmHg 62 bpm 18 rpm 98.1 F 128.25 lbs 64 in 22.0138 kg/m 1.6208 m 99 % 06/03/2017 5:49:00 PM 114 mmHg 78 mmHg 66 bpm 18 rpm 97.8 F 128.5 lbs 64 in 22.06 kg/m2 1.62 m2 100 % 05/19/2017 11:19:00 AM 118 mmHg 78 mmHg 70 bpm 18 rpm 97.2 F 128.25 lbs 64 in 22.0138 kg/m 1.6208 m 99 % 04/29/2017 3:48:00 PM 122 mmHg 76 mmHg 114 bpm 18 rpm 99.8 F 125.125 lbs 64 in 21.48 kg/m2 1.60 m2 97 % 12/17/2016 9:02:00 AM 119 mmHg 74 mmHg 81 bpm 97.1 F 131 lbs 64 in 22.4859 kg/m 1.638 m 10/29/2016 2:07:00 PM 105 mmHg 68 mmHg 66 bpm 16 rpm 98.2 F 124 lbs 64 in 21.28 kg/m2 1.59 m2 98 % 03/05/2016 8:37:00 AM 118 mmHg 78 mmHg 67 bpm 16 rpm 98.2 F 148 lbs 63 in 26.2168 kg/m 1.7274 m 98 % 11/05/2015 3:43:00 PM 119 mmHg 76 mmHg 76 bpm 98.1 F 137 lbs 63 in 24.27 kg/m2 1.66 m2 02/12/2015 2:29:00 PM 120 mmHg 70 mmHg 74 bpm 16 rpm 98 F 137 lbs 63 in 24.2682 kg/m 1.662 m 97 % 05/24/2014 1:50:00 PM 118 mmHg 79 mmHg 92 bpm 97.6 F 145 lbs 63 in 25.69 kg/m2 1.71 m2 05/03/2014 12:20:00 PM 118 mmHg 64 mmHg 72 bpm 16 rpm 98.1 F 144 lbs 63 in 25.5082 kg/m 1.7039 m 99 % 07/14/2013 2:17:00 PM 122 mmHg 62 mmHg 94 bpm 16 rpm 97.6 F 136.25 lbs 63 i n 24.14 kg/m2 1.66 m2 98 % 04/07/2013 11:12:00 AM 118 mmHg 64 mmHg 68 bpm 16 rpm 98.5 F 141 lbs 63 in 24.9768 kg/m 1.6861 m 98 % 04/21/2012 2:18:00 PM 110 mmHg 60 mmHg 70 bpm 18 rpm 96.9 F 136.25 lbs 63 i n 24.14 kg/m2 1.66 m2 97 % 04/05/2012 3:12:00 PM 118 mmHg 84 mmHg 76 bpm 98.2 F 141.25 lbs 63 in 25.0211 kg/m 1.6876 m 07/07/2011 9:18:00 AM 118 mmHg 67 mmHg 79 bpm 97.8 F 144.375 lbs 63 in 25.57 kg/m2 1.71 m2 05/16/2011 9:38:00 AM 117 mmHg 77 mmHg 76 bpm 99.4 F 137.5 lbs 63 in 24.3568 kg/m 1.665 m 01/29/2011 10:11:00 AM 112 mmHg 78 mmHg 80 bpm 138.312 lbs 63 i n 24.50 kg/m2 1.67 m2 10/30/2010 3:29:00 PM 110 mmHg 78 mmHg [...] 05/03/2014 12:00 AM Decadron, Per 1 Mg [facility]# [address]-83 Re viewed 05/03/2014 12:00 AM Depo-Medrol, Per 80 Mg [facility]#2606-9197-94 Reviewed 07/30/2010 12:00 AM CYTOPATH TBS C/V [...] Counseling for control, oral contraceptives Dec 17 7 9:07AM Contraceptive management Dec 17 2016 [...] cy Group Number Start Date BCBS Bcbs [facility] [id number] N/ A [facility] Med Occupational Medicine [id number] N/A BCBS Bcbs [facility] [id number] N/ A BCBS Bcbs [facility] [id number] N/A History of Encounters Visit Date Visit Type Provider 11/20/2018 Office visit ROXANE BONE 08/06/2018 Office visit ROXANE BONE 08/03/2018 Nurse visit ROXANE BONE 05/10/2018 Office visit ROXANE BONE 05/03/2018 Office visit Roxane Arteaga MD 04/12/2018 Office visit Ricardo Pinzon CHIEF METEOROLOGIST 03/11/[address] Calra salmeron MD 2018 Office visit Lizy sanchez CHIEF METEOROLOGIST 01/13/2018 Office visit 01/13/2018 Office visit Ricardo Pinzon CHIEF METEOROLOGIST 12/14/2017 Office visit Apolinar Anthony NP 12/02/2017 Nurse visit Apolinar Anthony NP 11/04/2017 Office visit Apolinar Anthony NP 10/28/2017 Office visit Apolinar Anthony NP 06/03/2017 Office visit Apolinar Anthony ARBORIST 05/19/2017 Office visit Apolinar Anthony ARBORIST 04/29/2017 Office visit Apolinar Anthony ARBORIST 12/17/2016 Office visit Lizy Echeverria n CHIEF METEOROLOGIST 10/29/2016 Office visit ROXANE BONE 03/05/2016 Office visit ROXANE BONE 11/05/2015 Office visit Lizy Adriananabel n CHIEF METEOROLOGIST 02/12/2015 Office visit ROXANE BONE 05/24/2014 Office visit Lizy Echeverria n CHIEF METEOROLOGIST 05/03/2014 Office visit 05/03/2014 Office visit ROXANE BONE 07/14/2013 Office visit ROXANE BONE 04/07/2013 Office visit ROXANE BONE 04/21/2012 Office visit Roxane Arteaga MD 04/14/2012 [facility] Roxane Arteaga MD 04/05/2012 Office visit Spencer Davis MD 02/23/2012 [facility] Spencer Davis MD 02/17/2012 Office visit Spencer Davis MD 02/12/2012 Office visit Spencer Davis MD 02/04/2012 Office visit Spencer Davis MD 01/28/2012 Office visit Spencer Davis MD 01/21/2012 Office visit Spencer Davis MD 01/07/2012 Office visit Spencer Davis MD 12/24/2011 Office visit Spencer Davis MD 12/11/2011 Office visit Spencer Davis MD 11/19/2011 Office visit Spencer Davis MD 11/11/2011 [facility] Spencer Davis MD 10/22/2011 Office visit Spencer [...]
--- OUTSIDE RECORDS SUMMARY | 2019-08-09 07:08 | XMS REPORT ---
Author Author Kaylah Pinzon [facility] Address [address] [place] [id number] Care Team Providers Care Axle Inspector Name Role Phone Ricardo Pinzon PCP Roxane [...] oral route once daily for 84 days Carafate 1 gram oral tablet 04/05/2018 04/19/2018 take 1 tablet (1 gram) by oral route 4 times per day on an empty stomach 1 hour before meals and at bedtime for 14 days clorazepate dipotassium 3.75 mg oral tablet 04/12/201805/12 take 1 tablet (3.75 mg) by oral route 2 times per day for 30 days Name Start Date [...] route every 8 hours for 5 days Discontinued Name Start Date [...] by oral route 2 times a day [place] [facility] 27-400-1.13-250 za-uvl-bs-mg oral capsule 07/07/2011 04/21/2012 take 1 capsule [...] HC BMI BSA BMI Percentile O2 Sat(%) 04/12/2018 4:53:00 PM 106 mmHg 66 mmHg [...] 133.25 lbs 64 i n 22.87 kg/m2 1.6521 m 98 % 11/04/2017 4:35:00 PM 114 mmHg 76 mmHg 80 bpm 16 rpm 98.8 F 125.25 lbs 64 in 21.4989 kg/m 1.60 m2 100 % 10/28/2017 4:57:00 PM 118 mmHg 72 mmHg 62 bpm 18 rpm 98.1 F 128.25 lbs 64 in 22.01 kg/m2 1.6208 m 99 % 06/03/2017 5:49:00 PM 114 mmHg 78 mmHg 66 bpm 18 rpm 97.8 F 128.5 lbs 64 in 22.0567 kg/m 1.62 m2 100 % 05/19/2017 11:19:00 AM 118 mmHg 78 mmHg 70 bpm 18 rpm 97.2 F 128.25 lbs 64 in 22.01 kg/m2 1.6208 m 99 % 04/29/2017 3:48:00 PM 122 mmHg 76 mmHg 114 bpm 18 rpm 99.8 F 125.125 lbs 64 in 21.4774 kg/m 1.60 m2 97 % 12/17/2016 9:02:00 AM 119 mmHg 74 mmHg 81 bpm 97.1 F 131 lbs 64 in 22.49 kg/m2 1.638 m 10/29/2016 2:07:00 PM 105 mmHg 68 mmHg 66 bpm 16 rpm 98.2 F 124 lbs 64 in 21.2843 kg/m 1.59 m2 98 % 03/05/2016 8:37:00 AM 118 mmHg 78 mmHg 67 bpm 16 rpm 98.2 F 148 lbs 63 in 26.22 kg/m2 1.7274 m 98 % 11/05/2015 3:43:00 PM 119 mmHg 76 mmHg 76 bpm 98.1 F 137 lbs 63 in 24.2682 kg/m 1.66 m2 02/12/2015 2:29:00 PM 120 mmHg 70 mmHg 74 bpm 16 rpm 98 F 137 lbs 63 in 24.27 kg/m2 1.662 m 97 % 05/24/2014 1:50:00 PM 118 mmHg 79 mmHg 92 bpm 97.6 F 145 lbs 63 in 25.6853 kg/m 1.71 m2 05/03/2014 12:20:00 PM 118 mmHg 64 mmHg 72 bpm 16 rpm 98.1 F 144 lbs 63 in 25.51 kg/m2 1.7039 m 99 % 07/14/2013 2:17:00 PM 122 mmHg 62 mmHg 94 bpm 16 rpm 97.6 F 136.25 lbs 63 i n 24.1354 kg/m 1.6574 m 98 % 04/07/2013 11:12:00 AM 118 mmHg 64 mmHg 68 bpm 16 rpm 98.5 F 141 lbs 63 in 24.98 kg/m2 1.69 m2 98 % 04/21/2012 2:18:00 PM 110 mmHg 60 mmHg 70 bpm 18 rpm 96.9 F 136.25 lbs 63 i n 24.1354 kg/m 1.6574 m 97 % 04/05/2012 3:12:00 PM 118 mmHg 84 mmHg 76 bpm 98.2 F 141.25 lbs 63 in 25.02 kg/m2 1.69 m2 07/07/2011 9:18:00 AM 118 mmHg 67 mmHg 79 bpm 97.8 F 144.375 lbs 63 in 25.5746 kg/m 1.7061 m 05/16/2011 9:38:00 AM 117 mmHg 77 mmHg 76 bpm 99.4 F 137.5 lbs 63 in 24.36 kg/m2 1.67 m2 01/29/2011 10:11:00 AM 112 mmHg 78 mmHg 80 bpm 138.312 lbs 63 i n 24.5007 kg/m 1.6699 m 10/30/2010 3:29:00 PM 110 mmHg 78 mmHg 76 bpm 135 lbs 10/07/2010 9:39:00 AM 104 mmHg 74 mmHg 76 bpm 138 lbs 10/03/2010 2:49:00 PM 118 mmHg 72 mmHg 78 bpm 98.4 F 07/30/2010 1:27:00 PM 126 mmHg 81 mmHg 85 bpm 99.3 F 141 lbs 64 in 24.3 kg/m 1.6994 m 06/17/2010 3:48:00 PM 110 [...] 05/03/2014 12:00 AM Decadron, Per 1 Mg [facility]# [address]-28 Re viewed 05/03/2014 12:00 AM Depo-Medrol, Per 80 Mg [facility]#0517-4443-96 Reviewed 07/30/2010 12:00 AM CYTOPATH TBS C/V [...] ve History Of Immunizations Name Date Admin [facility] Name Mf Code Trade Name Lot# Route Inj Vis [...] 2018 4:58PM Anxiety Apr 12 2018 4:58PM Payers Insurance Name Company Name Plan Name Plan Number Policy Number Cosme Group Number Start Date BCBS Bcbs [facility] [id number] N/ A BCBS Bcbs [facility] [id number] N/ A BCBS Bcbs [facility] [id number] N/A History of Encounters Visit Date Visit Type Provider 04/12/2018 Office visit Ricardo Pinzon RADIUS GRINDER 03/11/[address] Clara salmeron MD 2018 Office visit Lizy sanchez RADIUS GRINDER 01/13/2018 Office visit 01/13/2018 Office visit Ricardo Pinzon RADIUS GRINDER 12/14/2017 Office visit Apolinar Anthony NP 12/02/2017 Nurse visit Apolinar Anthony NP 11/04/2017 Office visit Apolinar Anthony COMMISSIONER OF OFFICIALS 10/28/2017 Office visit Apolinar Anthony COMMISSIONER OF OFFICIALS 06/03/2017 Office visit Apolinar Anthony COMMISSIONER OF OFFICIALS 05/19/2017 Office visit Apolinar Anthony COMMISSIONER OF OFFICIALS 04/29/2017 Office visit Apolinar Anthony COMMISSIONER OF OFFICIALS 12/17/2016 Office visit Lizy Adriananabel n RADIUS GRINDER 10/29/2016 Office visit ROXANE BONE 03/05/2016 Office visit ROXANE BONE 11/05/2015 Office visit Lizy RhonaGerardo Echeverria n RADIUS GRINDER 02/12/2015 Office visit ROXANE BONE 05/24/2014 Office visit Lizy RhonaGerardo Echeverria n RADIUS GRINDER 05/03/2014 Office visit 05/03/2014 Office visit ROXANE BONE 07/14/2013 Office visit ROXANE BONE 04/07/2013 Office visit ROXANE BONE 04/21/2012 Office visit Roxane Arteaga MD 04/14/2012 [facility] Roxane Arteaga MD 04/05/2012 Office visit Spencer Davis MD 02/23/2012 [facility] Spencer Davis MD 02/17/2012 Office visit [...] visit Roxane PowersC 10/07/2010 Office visit Roxane Cobian 10/03/2010 Procedures Spencer Davis MD 07/30/2010 Office visit Spencer Davis MD 06/17/2010 Office visit Roaxne Cobian 01/31/2010 Office visit Roxane Cobian 05/31/2009 Office visit Roxane Cobian 05/21/2009 Office visit Roxane Cobian
--- OUTSIDE RECORDS SUMMARY | 2019-08-09 07:08 | XMS REPORT ---
Author Author Kaylah JAMES [facility] Address [address] [place] [id number] Care Team Providers Care Chip Separator Name Role Phone ROXANE JAMES PCP Roxane [...] oral route once daily for 84 days Protonix 20 mg oral tablet,delayed release [...] 2 times per day for 30 days Medrol (Chacho) 4 mg oral tablets,dose pack 05/10/2018 05/15/19 19 take as directed for 5 days Discontinued Name Start Date Discontinued Date SIG Comments Bactrim DS 800-160 mg oral tablet 05/21/2009 07/30/2010 take 1 tablet by oral route 2 times per day Keflex 500 mg oral capsule 06/17/2010 07/30/2010 one PO TID Medrol ([place]) 4 mg oral tablets,dose pack 06/17/2010 07/30/2010 take as directed Paxil 20 mg oral tablet 10/07/2010 05/16/2011 take 1 t ablet (20 mg) by oral route once daily Macrobid 100 mg oral capsule 10/30/2010 05/16/2011 mynor e 1 capsule by oral route [facility] 27-400-1.13-250 mt-mpz-ia-mg oral capsule 07/07/2011 04/21/2012 take 1 capsule [...] HC BMI BSA BMI Percentile O2 Sat(%) 05/10/2018 9:23:00 AM 110 mmHg 70 mmHg [...] 136.25 lbs 63 i n 24.1354 kg/m 1.66 m2 98 % 04/07/2013 11:12:00 AM 118 mmHg 64 mmHg 68 bpm 16 rpm 98.5 F 141 lbs 63 in 24.98 kg/m2 1.6861 m 98 % 04/21/2012 2:18:00 PM 110 mmHg 60 mmHg 70 bpm 18 rpm 96.9 F 136.25 lbs 63 i n 24.1354 kg/m 1.66 m2 97 % 04/05/2012 3:12:00 PM 118 mmHg 84 mmHg 76 bpm 98.2 F 141.25 lbs 63 in 25.02 kg/m2 1.6876 m 07/07/2011 9:18:00 AM 118 mmHg 67 mmHg 79 bpm 97.8 F 144.375 lbs 63 in 25.5746 kg/m 1.71 m2 05/16/2011 9:38:00 AM 117 mmHg 77 mmHg 76 bpm 99.4 F 137.5 lbs 63 in 24.36 kg/m2 1.665 m 01/29/2011 10:11:00 AM 112 mmHg 78 mmHg 80 bpm 138.312 lbs 63 i n 24.5007 kg/m 1.67 m2 10/30/2010 3:29:00 PM 110 mmHg [...] 12:00 AM Decadron, Per 1 Mg [facility]# [id number] Re viewed 05/03/2014 12:00 AM Depo-Medrol, Per 80 Mg [facility]#0822-0680-64 Reviewed 07/30/2010 12:00 AM CYTOPATH TBS C/V [...] (generalized anxiety disorder) May 10 2018 9:26AM Payers Insurance Name Company Name Plan Name Plan Number Policy Number Cosme cy Group Number Start Date BCBS [employer] [place] [id number] N/ A BCBS [employer] [place] [id number] N/ A BCBS [employer] [place] [id number] N/A History of Encounters Visit Date Visit Type Provider 05/10/2018 Office visit ROXANE BONE 05/03/2018 Office visit Roxane Arteaga MD 04/12/2018 Office visit Ricardo Pinzon PRESS MACHINE FEEDER 03/11/[address] Clara salmeron MD 2018 Office visit Lizy sanchez PRESS MACHINE FEEDER 01/13/2018 Office visit 01/13/2018 Office visit Ricardo Pinzon PRESS MACHINE FEEDER 12/14/2017 Office visit Apolinar Anthony NP 12/02/2017 Nurse visit Apolinar Anthony EDITING INTERNSHIP 11/04/2017 Office visit Apolinar Anthony EDITING INTERNSHIP 10/28/2017 Office visit Apolinar Anthony EDITING INTERNSHIP 06/03/2017 Office visit Apolinar Anthony EDITING INTERNSHIP 05/19/2017 Office visit Apolinar Anthony EDITING INTERNSHIP 04/29/2017 Office visit Apolinar Anthony EDITING INTERNSHIP 12/17/2016 Office visit Lizy sanchez PRESS MACHINE FEEDER 10/29/2016 Office visit ROXANE BONE 03/05/2016 Office visit ROXANE OBNE 11/05/2015 Office visit Lizy sanchez PRESS MACHINE FEEDER 02/12/2015 Office visit ROXANE BONE 05/24/2014 Office visit Lizy sanchze PRESS MACHINE FEEDER 05/03/2014 Office visit 05/03/2014 Office visit ROXANE BONE 07/14/2013 Office visit ROXANE BONE 04/07/2013 Office visit ROXANE BONE 04/21/2012 Office visit Roxane Arteaga MD 04/14/2012 [facility] Roxane Arteaga MD 04/05/2012 Office visit Spencer Davis MD 02/23/2012 [facility] Spencer Davis MD 02/17/2012 Office visit Spencer Davis MD 02/12/2012 Office visit Spencer Davis MD 02/04/2012 Office visit Spencer Davis MD 01/28/2012 Office visit Spencer Davis MD 01/21/2012 Office visit Spencer Davis MD 01/07/2012 Office visit Spencer Davis MD 12/24/2011 Office visit Spencer Davis MD 12/11/2011 Office visit Spencer Davis MD 11/19/2011 Office visit Spencer Davis MD 11/11/2011 [facility] Spencer Davis MD 10/22/2011 Office [...]
--- OUTSIDE RECORDS SUMMARY | 2019-08-09 07:08 | XMS REPORT ---
Author Author Kaylah Arteaga [facility] Address [address] [place] [phone] Care Team Providers Care Software Asset Manager Name Role Phone Roxane Arteaga PCP Roxane Calixto PreferredProvider Unavailable Allergies and [...] in small amount of water and drink) Name Start Date Expiration Date SIG Comments [...] by oral route 2 times a day [facility] MARTINE 27-400-1.13-250 fm-fyf-ik-mg oral capsule 07/07/2011 04/21/2012 take 1 capsule [...] HC BMI BSA BMI Percentile O2 Sat(%) 05/03/2018 1:44:00 PM 110 mmHg 80 mmHg [...] 05/03/2014 12:00 AM Decadron, Per 1 Mg [facility]# [address]-31 Re viewed 05/03/2014 12:00 AM Depo-Medrol, Per 80 Mg [facility]#2389-2544-83 Reviewed 07/30/2010 12:00 AM CYTOPATH TBS C/V [...] Abdominal pain; epigastric May 03 2018 1:44PM Payers Insurance Name Company Name Plan Name Plan Number Policy Number Cosme cy Group Number [id number] N/ A [facility] [id number] N/ A BCBS [facility] [id number] N/A History of Encounters Visit Date Visit Type Provider 05/03/2018 Office visit Roxane Arteaga MD 04/12/2018 Office visit Ricardo Pinzon SENIOR MICROSOFT NET DEVELOPER 03/11/[address] Clara salmeron MD 2018 Office visit Lizy RhonaGerardo sanchez SENIOR MICROSOFT NET DEVELOPER 01/13/2018 Office visit 01/13/2018 Office visit Ricardo Pinzon SENIOR MICROSOFT NET DEVELOPER 12/14/2017 Office visit Apolinaryannick Anthony MACHINE OPERATOR FARMWORKER 12/02/2017 Nurse visit Apolinar Gabrielle MACHINE OPERATOR FARMWORKER 11/04/2017 Office visit Apolinar Gabrielle MACHINE OPERATOR FARMWORKER 10/28/2017 Office visit Apolinar Gabrielle MACHINE OPERATOR FARMWORKER 06/03/2017 Office visit Apolinar Gabrielle MACHINE OPERATOR FARMWORKER 05/19/2017 Office visit Apolinar Gabrielle MACHINE OPERATOR FARMWORKER 04/29/2017 Office visit Apolinaryannick Anthony MACHINE OPERATOR FARMWORKER 12/17/2016 Office visit Lizy sanchez SENIOR MICROSOFT NET DEVELOPER 10/29/2016 Office visit ROXANE BONE 03/05/2016 Office visit ROXANE BONE 11/05/2015 Office visit Lizy sanchez SENIOR MICROSOFT NET DEVELOPER 02/12/2015 Office visit ROXANE BONE 05/24/2014 Office visit Lizy sanchez SENIOR MICROSOFT NET DEVELOPER 05/03/2014 Office visit 05/03/2014 Office visit ROXANE BONE 07/14/2013 Office visit ROXANE BONE 04/07/2013 Office visit ROXANE BONE 04/21/2012 Office visit Roxane Arteaga MD 04/14/2012 Hospital Roxane Arteaga MD 04/05/2012 Office visit Spencer Davis MD 02/23/2012 [facility] Spencer Davis MD 02/17/2012 Office visit Spencer Davis MD 02/12/2012 Office visit Spencer Davis MD 02/04/2012 Office visit Spencer Davis MD 01/28/2012 Office visit Specner Davis MD 01/21/2012 Office visit Spencer Davis MD 01/07/2012 Office visit Spencer Davis MD 12/24/2011 Office visit Spencer Davis MD 12/11/2011 Office visit Spencer Davis MD 11/19/2011 Office visit Spencer Davis MD 11/11/2011 [facility] Spencer Davis MD 10/22/2011 Office visit Spencer Davis MD 09/24/2011 Office visit Spencer Davis MD 09/03/2011 Office visit Spencer Davis MD 08/06/2011 Office visit Spencer Daivs MD 07/07/2011 Office visit Spencer Davis MD [...]
--- OUTSIDE RECORDS SUMMARY | 2019-08-09 07:09 | XMS REPORT ---
Author Author Kaylah Landis [facility] Address [address] [place] [phone] Care Team Providers Care Sterilizer Machine Operator Name Role Phone Clara Landis PCP Roxane Calixto PreferredProvider Unavailable Allergies and Adverse Reactions Name Reaction Notes codeine sulfate passed out Plan of Treatment Planned Activity Comments Planned Date Planned Time Plan/Goal HIV 1 antibody detection 06/16/2016 12:00 AM Urinalysis dipstick (done in clinic) 12/02/2017 12:0 0 AM Medications Active Name Start Date Estimated Completion Date SIG Co mments Xanax oral acyclovir 400 mg oral tablet 2018 04/09/2018 [...] oral route once daily for 30 days Discontinued Name Start Date Discontinued Date [...] by oral route 2 times a day Ameirca FARLEY 27-400-1.13-250 np-ree-kj-mg oral capsule 07/07/2011 04/21/2012 take 1 capsule [...] oral route once a day (at bedtime) Lo Loestrin Fe 1 mg-10 mcg (24)/10 [...] HC BMI BSA BMI Percentile O2 Sat(%) 03/11/2018 10:14:00 AM 112 mmHg 73 mmHg [...] lbs 63 i n 24.5007 kg/m 1.6699 10/30/2010 3:29:00 PM 110 mmHg 78 mmHg [...] Description Comments Alcohol Use - Occasional Tobacco Former smoker Quit 02-27-18 History of Procedures Date Ordered Description Order [...] Reviewed 03/11/2018 10:21 AM URINE TEST Reviewed 05/03/2014 12:00 AM THER/PROPH/DIAG INJ SC/IM Reviewed 05/03/2014 12:00 AM Decadron, Per 1 Mg [facility]# [id number] Re viewed 05/03/2014 12:00 AM Depo-Medrol, Per 80 Mg [facility]#6349-2549-91 Reviewed 07/30/2010 12:00 AM CYTOPATH TBS C/V [...] DNA test positive Mar 11 2018 10:41AM Payers Insurance Name Company Name Plan Name Plan Number Policy Number Cosme cy Group Number Start Date BCBS [facility] [place] [id number] N/ A BCBS [facility] [place] [id number] N/ A BCBS [facility] [place] [id number] N/A History of Encounters Visit Date Visit Type Provider 03/11/[address] Clara salmeron MD 2018 Office visit Lizy sanchez COMPRESS ENGINEER 01/13/2018 Office visit 01/13/2018 Office visit Ricardo Pinzon COMPRESS ENGINEER 12/14/2017 Office visit Apolinar Anthony NP 12/02/2017 Nurse visit Apolinar Anthony FISHING MANAGER 11/04/2017 Office visit Apolinar Anthony NP 10/28/2017 Office visit Apolinar Anthony NP 06/03/2017 Office visit Apolinar Anthony NP 05/19/2017 Office visit Apolinar Anthony NP 04/29/2017 Office visit Apolinar Anthony NP 12/17/2016 Office visit Lizy sanchez COMPRESS ENGINEER 10/29/2016 Office visit ROXANE BONE 03/05/2016 Office visit ROXANE BONE 11/05/2015 Office visit Lizy sanchez COMPRESS ENGINEER 02/12/2015 Office visit ROXANE BONE 05/24/2014 Office visit Lizy sanchez COMPRESS ENGINEER 05/03/2014 Office visit 05/03/2014 Office visit ROXANE BONE 07/14/2013 Office visit ROXANE BONE 04/07/2013 Office visit ROXANE BONE 04/21/2012 Office visit Roxane Arteaga MD 04/14/2012 [facility] Roxane Arteaga MD 04/05/2012 Office visit Spencer Davis MD 02/23/2012 [facility] Spencer Davis MD 02/17/2012 Office visit Spencer Davis MD 02/12/2012 Office visit Spencer Davis MD 02/04/2012 Office visit Spencer Davis MD 01/28/2012 Office visit Spencer Davis MD 01/21/2012 Office visit Spencer Davis MD 01/07/2012 Office visit Spencer Davis MD 12/24/2011 Office visit Spencer Davis MD 12/11/2011 Office visit Spencer Davis MD 11/19/2011 Office visit Spencer Davis MD 11/11/2011 [facility] Spencer Davis MD 10/22/2011 Office visit [...]
--- OUTSIDE RECORDS SUMMARY | 2019-08-09 07:09 | XMS REPORT ---
Author Author Kaylah Landis [facility] oup Address [address] [place] [phone] Care Team Providers Care Sole Leveler Name Role Phone Clara Landis PCP Roxane [...] oral route 2 times a day [place] F[facility] 27-400-1.13-250 ey-ouj-tf-mg oral capsule 07/07/2011 04/21/2012 take 1 capsule [...] 03/11/2018 12:00 AM BX/CURETT OF CERVIX W/SCOPE Returned 03/11/2018 12:00 AM EXAM/BIOPSY OF VAG W/SCOPE Returned 03/11/2018 12:00 AM ENDOCERV CURETTAGE W/SCOPE Returned 05/03/2014 12:00 AM THER/PROPH/DIAG INJ SC/IM Reviewed 05/03/2014 12:00 AM Decadron, Per 1 Mg [facility]# [address]-49 Re viewed 05/03/2014 12:00 AM Depo-Medrol, Per 80 Mg [facility]#7202-2603-11 Reviewed 07/30/2010 12:00 AM CYTOPATH TBS C/V [...] cy Group Number Start Date BCBS Bcbs [facility] [id number] N/ A BCBS [employer] [place] [id number] N/ A BCBS [facility] [facility] [place] [id number] N/A History of Encounters Visit Date Visit Type Provider 03/11/[address] Clara salmeron MD 2018 Office visit Lizy sanchez SEWING TEACHER 01/13/2018 Office visit 01/13/2018 Office visit Ricardo Pinzon SEWING TEACHER 12/14/2017 Office visit Apolinar nAthony NP 12/02/2017 Nurse visit Apolinar Anthony DROP WORKER 11/04/2017 Office visit Apolinar Anthony DROP WORKER 10/28/2017 Office visit Apolinar Anthony DROP WORKER 06/03/2017 Office visit Apolinar Anthony DROP WORKER 05/19/2017 Office visit Apolinar Anthony DROP WORKER 04/29/2017 Office visit Apolinar Anthony NP 12/17/2016 Office visit Lizy sanchez SEWING TEACHER 10/29/2016 Office visit ROXANE BONE 03/05/2016 Office visit ROXANE BONE 11/05/2015 Office visit Lizy sanchez SEWING TEACHER 02/12/2015 Office visit ROXANE BONE 05/24/2014 Office visit Lizy sanchez SEWING TEACHER 05/03/2014 Office visit 05/03/2014 Office visit ROXANE BONE 07/14/2013 Office visit ROXANE BONE 04/07/2013 Office visit ROXANE BONE 04/21/2012 Office visit Roxane Arteaga MD 04/14/2012 [facility] Roxane Arteaga MD 04/05/2012 Office visit Spencer Davis MD 02/23/2012 [facility] Spencer Davis MD 02/17/2012 Office visit Spencer Davis MD 02/12/2012 Office visit Spencer Davis MD 02/04/2012 Office visit Spencer Davis MD 01/28/2012 Office visit Spencer Davis MD 01/21/2012 Office visit Spencer Davis MD 01/07/2012 Office visit Spencer Davis MD 12/24/2011 Office visit Spencer Davis MD 12/11/2011 Office visit Spencer Davis MD 11/19/2011 Office visit Spencer Davis MD 11/11/2011 [facility] Spencer Davis MD 10/22/2011 Office [...] Roxane BONE -C 05/31/2009 Office visit Roxane BONE -C 05/21/2009 Office visit Roxane BONE -C
--- OUTSIDE RECORDS SUMMARY | 2019-08-09 07:09 | XMS REPORT ---
Author Author Kaylah Landis [facility] Physicians oup Address [address] [place] [phone] Care Team Providers Care Compensation Supervisor Name Role Phone Clara Landis PCP Roxane [...] 2 times a day [place] FARLEY 27-400-1.13-250 gf-iqf-kg-mg oral capsule 07/07/2011 04/21/2012 take 1 capsule [...] 05/03/2014 12:00 AM Decadron, Per 1 Mg [facility]# [address]-27 Re viewed 05/03/2014 12:00 AM Depo-Medrol, Per 80 Mg [facility]#8509-7429-80 Reviewed 07/30/2010 12:00 AM CYTOPATH TBS C/V [...] Group Number Start Date BCBS [employer] [place] [id number] N/ A BCBS [employer] [facility] [place] [id number] N/ A BCBS [facility] [facility] [place] [id number] N/A History of Encounters Visit Date Visit Type Provider 03/11/[address] Clara salmeron MD 2018 Office visit Lizy sanchez SAND FILLER 01/13/2018 Office visit 01/13/2018 Office visit Ricardo Pinzon SAND FILLER 12/14/2017 Office visit Apolinar Anthony NP 12/02/2017 Nurse visit Apolinar Anthony PARACHUTE PANEL JOINER 11/04/2017 Office visit Apolinar Anthony NP 10/28/2017 Office visit Aploinar Anthony NP 06/03/2017 Office visit Apolinar Anthony NP 05/19/2017 Office visit Apolinar Anthony NP 04/29/2017 Office visit Apolinar Anthony NP 12/17/2016 Office visit Lizy sanchez SAND FILLER 10/29/2016 Office visit ROXANE BONE 03/05/2016 Office visit ROXANE BONE 11/05/2015 Office visit Lizy sanchez SAND FILLER 02/12/2015 Office visit ROXANE BONE 05/24/2014 Office visit Lizy sanchez SAND FILLER 05/03/2014 Office visit 05/03/2014 Office visit ROXANE BONE 07/14/2013 Office visit ROXANE BONE 04/07/2013 Office visit ROXANE BONE 04/21/2012 Office visit Roxane Arteaga MD 04/14/2012 [facility] Roxane Arteaga MD 04/05/2012 Office [...] 11/19/2011 Office visit Spencer Davis MD 11/11/2011 [facility] Spencer Davis MD 10/22/2011 Office [...]
--- OUTSIDE RECORDS SUMMARY | 2019-08-09 07:10 | XMS REPORT ---
Author Author Kaylah Churchill [facility] Address [address] [place] [phone] Care Team Providers Care Sliver Lapper Name Role Phone Lizy Churchill PCP Roxane Calixto PreferredProvider Unavailable Allergies and Adverse Reactions Name Reaction Notes codeine sulfate passed out Plan of Treatment Planned Activity Comments Planned Date Planned Time Plan/Goal HIV 1 antibody detection 06/16/2016 12:00 AM Urinalysis dipstick (done in clinic) 12/02/2017 12:0 0 AM Chlamydia 2018 12:00 AM Gonorrhea 2018 12:00 AM Pap smear auto thin prep w manual MD screen 2018 12:00 AM TRICHOMONAS AMPLIFIED 2018 12:00 AM TRICHOMONAS AMPLIFIED 2018 12:00 AM Medications Active Name Start Date Estimated Completion Date SIG Co mments Xanax oral acyclovir 400 mg oral tablet 2018 04/09/2018 mynor e 1 tablet (400 mg) by oral route every 8 hours for 5 days Lo Loestrin Fe 1 mg-10 mcg (24)/10 mcg (2) oral tablet 8 01/10/2019 take 1 tablet by oral route once [...] 2 times a day [place] F[place] 27-400-1.13-250 qe-jen-aj-mg oral capsule 07/07/2011 04/21/2012 take 1 capsule [...] oral route once a day (at bedtime) Problem List Description Status Onset Herpes genitalis Active Papanicolaou smear of cervix with low gr charity squamous intraepithelial lesion (LGSIL) Active 05/16/2011 VICENTE (generalized anxiety disorder) Active 11/07 Vital Signs Date Time BP-Sys(mm[Hg] BP-Myra(mm[Hg]) HR(bpm) RR(rpm) Temp WT HT HC BMI BSA BMI Percentile O2 Sat(%) 2018 9:24:00 AM 122 mmHg 78 mmHg [...] Returned 01/13/2018 12:00 AM C-REACTIVE PROTEIN Returned 05/03/2014 12:00 AM THER/PROPH/DIAG INJ SC/IM Reviewed 05/03/2014 12:00 AM Decadron, Per 1 Mg [facility]# [address]-83 Re viewed 05/03/2014 12:00 AM Depo-Medrol, Per 80 Mg [facility]#6383-4284-23 Reviewed 07/30/2010 12:00 AM CYTOPATH TBS C/V [...] Ql Strip neg WBC # Ur mod History Of Immunizations Name Date Admin Mfg [...] for sexually transmitted disease Jan 282017 9:48AM Payers Insurance Name Company Name Plan Name Plan Number Policy Number [place] Group Number Start Date BCBS Bcbs [facility] [id number] N/ A BCBS [facility]cbs [facility] [id number] N/ [facility] [id number] N/A History of Encounters Visit Date Visit Type Provider 2018 Office visit Lizy Harrykristopher n FISHER TRAMMEL NET 01/13/2018 Office visit 01/13/2018 Office visit Ricardo Pinzon FISHER TRAMMEL NET 12/14/2017 Office visit Apolinar Anthony CUSTOMER SERVICES COORDINATOR 12/02/2017 Nurse visit Apolinar Anthony CUSTOMER SERVICES COORDINATOR 11/04/2017 Office visit Apolinar Agrawalle CUSTOMER SERVICES COORDINATOR 10/28/2017 Office visit Apolinar Agrawalle CUSTOMER SERVICES COORDINATOR 06/03/2017 Office visit Apolinar Agrawalle CUSTOMER SERVICES COORDINATOR 05/19/2017 Office visit Apolinar Anthony CUSTOMER SERVICES COORDINATOR 04/29/2017 Office visit Apolinar Anthony CUSTOMER SERVICES COORDINATOR 12/17/2016 Office visit Lizy MGerardo Echeverria n FISHER TRAMMEL NET 10/29/2016 Office visit ROXANE BONE 03/05/2016 Office visit ROXANE BONE 11/05/2015 Office visit Lizy RhonaGerardo Echeverria n FISHER TRAMMEL NET 02/12/2015 Office visit ROXANE BONE 05/24/2014 Office visit Lizy sanchez FISHER TRAMMEL NET 05/03/2014 Office visit 05/03/2014 Office visit ROXANE BONE 07/14/2013 Office visit ROXANE BONE 04/07/2013 Office visit ROXANE BONE 04/21/2012 Office visit Roxane Arteaga MD 04/14/2012 Hospital Roxane Arteaga MD 04/05/2012 Office visit Spencer Davis MD 02/23/2012 [facility] Spencer Davis MD 02/17/2012 Office visit Spencer Davis MD 02/12/2012 Office visit Spencer Davis MD 02/04/2012 Office visit Spencer Davis MD 01/28/2012 Office visit Spencer Davis MD 01/21/2012 Office visit Spencer Davis MD 01/07/2012 Office visit Spencer Davis MD 12/24/2011 Office visit Spencer Davis MD 12/11/2011 Office visit Spencer Davis MD 11/19/2011 Office visit Spencer Davis MD 11/11/2011 [facility] Spencer Davis MD 10/22/2011 Office visit Spencer [...]
--- OUTSIDE RECORDS SUMMARY | 2019-08-09 07:10 | XMS REPORT ---
Author Author Kaylah Landis [facility] Address [address] [place] [phone] Care Team Providers Care Medical Records Specialist Name Role Phone Clara Landis PCP Roxane [...] 2 times a day [place] F[place]LEY 27-400-1.13-250 kv-hut-jh-mg oral capsule 07/07/2011 04/21/2012 take 1 capsule [...] 05/03/2014 12:00 AM Decadron, Per 1 Mg [facility]# [address]-24 Re viewed 05/03/2014 12:00 AM Depo-Medrol, Per 80 Mg [facility]#0387-8603-41 Reviewed 07/30/2010 12:00 AM CYTOPATH TBS C/V [...] result negative Mar 11 2018 10 :21AM Payers Insurance Name Company Name Plan Name Plan Number Policy Number [place] Group Number Start Date BCBS Bcbs [facility] [id number] N/ A BCBS [facility] [place] [id number] N/ A BCBS [facility] [place] [id number] N/A History of Encounters Visit Date Visit Type Provider 03/11/[address] Clara salmeron MD 2018 Office visit Lizy sanchez SUPERVISOR DRY PASTE 01/13/2018 Office visit 01/13/2018 Office visit Ricardo Pinzon SUPERVISOR DRY PASTE 12/14/2017 Office visit Apolinar Anthony NP 12/02/2017 Nurse visit Apolinar Anthony VENEER STAPLER 11/04/2017 Office visit Apolinar Anthony NP 10/28/2017 Office visit Apolinar Anthony VENEER STAPLER 06/03/2017 Office visit Apolinar Anthony NP 05/19/2017 Office visit Apolinar Anthony NP 04/29/2017 Office visit Apolinar Anthony NP 12/17/2016 Office visit Lizy sanchez SUPERVISOR DRY PASTE 10/29/2016 Office visit ROXANE BONE 03/05/2016 Office visit ROXANE BONE 11/05/2015 Office visit Lizy sanchez SUPERVISOR DRY PASTE 02/12/2015 Office visit ROXANE BONE 05/24/2014 Office visit Lizy sanchez SUPERVISOR DRY PASTE 05/03/2014 Office visit 05/03/2014 Office visit ROXANE BONE 07/14/2013 Office visit ROXANE BONE 04/07/2013 Office visit ROXANE BONE 04/21/2012 Office visit Roxane Arteaga MD 04/14/2012 [facility] Roxane Arteaga MD 04/05/2012 Office visit Spencer Davis MD 02/23/2012 [facility] Spencer Davis MD 02/17/2012 Office visit Spencer Davis MD 02/12/2012 Office visit Spencer Davis MD 02/04/2012 Office visit Spencer aDvis MD 01/28/2012 Office visit Spencer Davis MD 01/21/2012 Office visit Spencer Davis MD 01/07/2012 Office visit Spencer Davis MD 12/24/2011 Office visit Spencer Davis MD 12/11/2011 Office visit Spencer Davis MD 11/19/2011 Office visit Spencer Davis MD 11/11/2011 [facility] Spencer Davis MD 10/22/2011 Office visit Spencer Davis MD 09/24/2011 Office visit Spencer Davis MD 09/03/2011 Office visit Spencer Davis MD 08/06/2011 Office visit Spencer Davis MD 07/07/2011 Office visit Spencer Davis MD 05/16/2011 Office visit Spencer Davis MD 01/29/2011 Office visit ROXANE BONE 10/30/2010 Office visit Roxane Cobian 10/07/2010 Office visit Roxane Cobian 10/03/2010 Procedures Spencer Davis MD 07/30/2010 Office visit Spnecer Davis MD 06/17/2010 Office visit Roxane Cobian 01/31/2010 Office visit Roxane Cobian 05/31/2009 Office visit Roxane Cobian 05/21/2009 Office visit Roxane Cobian
--- OUTSIDE RECORDS SUMMARY | 2019-08-09 07:10 | XMS REPORT ---
Author Author Kaylah Churchill [facility] Phys[facility] oup Address [address] [place] [phone] Care Team Providers Care Rail Setter Name Role Phone Lizy Churchill PCP Roxane [...] 2 times a day [place] F[place] 27-400-1.13-250 di-pxo-wu-mg oral capsule 07/07/2011 04/21/2012 take 1 capsule [...] 144.375 lbs 63 in 25.5746 kg/m 1.7061 05/16/2011 9:38:00 AM 117 mmHg 77 mmHg [...] 2018 12:00 AM TRICHOMONAS VAGINALIS AMPLIF Reviewed 05/03/2014 12:00 AM THER/PROPH/DIAG INJ SC/IM Reviewed 05/03/2014 12:00 AM Decadron, Per 1 Mg [facility]# [address]-24 Re viewed 05/03/2014 12:00 AM Depo-Medrol, Per 80 Mg [facility]#7878-4616-43 Reviewed 07/30/2010 12:00 AM CYTOPATH TBS C/V [...] Group Number Start Date BCBS [facility] [place] [id number] N/ A BCBS [facility] [place] [id number] N/ A BCBS [facility] [place] [id number] N/A History of Encounters Visit Date Visit Type Provider 2018 Office visit Lizy MGerardo sanchez RESPITE WORKER 01/13/2018 Office visit 01/13/2018 Office visit Ricardo Pinzon RESPITE WORKER 12/14/2017 Office visit Apolinar Anthony MAINTENANCE TRUCK DRIVER 12/02/2017 Nurse visit Apolinar Anthony MAINTENANCE TRUCK DRIVER 11/04/2017 Office visit Apolinar Anthony MAINTENANCE TRUCK DRIVER 10/28/2017 Office visit Apolinar Anthony MAINTENANCE TRUCK DRIVER 06/03/2017 Office visit Apolinar Anthony MAINTENANCE TRUCK DRIVER 05/19/2017 Office visit Apolinar Anthony MAINTENANCE TRUCK DRIVER 04/29/2017 Office visit Apolinar Anthony MAINTENANCE TRUCK DRIVER 12/17/2016 Office visit Lizy sanchez RESPITE WORKER 10/29/2016 Office visit ROXANE BONE 03/05/2016 Office visit ROXANE BONE 11/05/2015 Office visit Lizy sanchez RESPITE WORKER 02/12/2015 Office visit ROXANE BONE 05/24/2014 Office visit Lizy sanchez RESPITE WORKER 05/03/2014 Office visit 05/03/2014 Office visit ROXANE BONE 07/14/2013 Office visit ROXANE BONE 04/07/2013 Office visit ROXANE BONE 04/21/2012 Office visit Roxane Arteaga MD 04/14/2012 [facility] Roxane Arteaga MD 04/05/2012 Office visit Spencer Davis MD 02/23/2012 [facility] Spencer Davis MD 02/17/2012 Office visit Spencer Davis MD 02/12/2012 Office visit Spencer Davis MD 02/04/2012 Office visit Spencer Davis MD 01/28/2012 Office visit Spencer Davis MD 01/21/2012 Office visit Spencer Davis MD 01/07/2012 Office visit Spencer Davis MD 12/24/2011 Office visit Spencer Davis MD 12/11/2011 Office visit Spencer Davis MD 11/19/2011 Office visit Spencer Davis MD 11/11/2011 [facility] Spencer Davis MD 10/22/2011 Office visit [...] Office visit Roxane Cobian 05/31/2009 Office visit Roaxne Cobian 05/21/2009 Office visit Roxane Cobian
--- OUTSIDE RECORDS SUMMARY | 2019-08-09 07:11 | XMS REPORT ---
Author Author Kaylah Pinzon [facility] Physicians oup Address [address] [place] [phone] Care Team Providers Care Project Finance Analyst Name Role Phone Ricardo Pinzon PCP Roxane Calixto PreferredProvider Unavailable Allergies and Adverse Reactions Name Reaction Notes codeine sulfate passed out Plan of Treatment Planned Activity Comments Planned Date Planned Time Plan/Goal HIV 1 antibody detection 06/16/2016 12:00 AM Urinalysis dipstick (done in clinic) 12/02/2017 12:0 0 AM Medications Active Name Start Date Estimated Completion Date SIG Co mments acyclovir 400 mg oral tablet 12/17/2016 mynor e 1 tablet (400 mg) by oral route 2 times per day Lo Loestrin Fe 1 mg-10 mcg (24)/10 mcg (2) oral tablet 12/17/2016 take 1 tablet by oral route once daily clonazepam 0.5 mg oral tablet 12/14/2017 ta ke 1 tablet by oral route once a day (at bedtime) Name Start Date Expiration Date SIG Comments [...] 2 times a day [place] F[place]LEY 27-400-1.13-250 rp-yov-zf-mg oral capsule 07/07/2011 04/21/2012 take 1 capsule by oral route once daily for 30 days lidocaine HCl 2 % mucous membrane gel 07/25/2011 04/05/2012 apply to affected area bid x 7 days Valtrex 500 mg oral tablet 01/21/2012 04/21/2012 take 1 tablet (500 mg) by oral route once daily for 30 days no meds 05/03/2014 Tamiflu 75 mg oral capsule 04/29/2017 05/19/2017 take 1 capsule (75 mg) by oral route 2 times per day for 5 days ciprofloxacin HCl 500 mg oral tablet 12/02/2017 12/03/2017 take 1 tablet by oral route daily for 5 days Xanax 0.25 mg oral tablet 12/07/2017 12/14/2017 take 1 /2 to 1 tablet bid prn anxiety Problem List Description Status Onset Herpes genitalis Active Papanicolaou smear of cervix with low gr charity squamous intraepithelial lesion (LGSIL) Active 05/16/2011 VICENTE (generalized anxiety disorder) Active 11/07 Vital Signs Date Time BP-Sys(mm[Hg] BP-Myra(mm[Hg]) HR(bpm) RR(rpm) Temp WT HT HC BMI BSA BMI Percentile O2 Sat(%) 01/13/2018 4:29:00 PM 110 mmHg 60 mmHg [...] 05/03/2014 12:00 AM Decadron, Per 1 Mg [facility]# [address]-05 Re viewed 05/03/2014 12:00 AM Depo-Medrol, Per 80 Mg [facility]#0389-2771-55 Reviewed 07/30/2010 12:00 AM CYTOPATH TBS C/V [...] mod History Of Immunizations Name Date Admin [facility] [place] [facility] Code Trade Name Lot# Route Inj Vis [...] upper quadrant pain Jan 15 2018 9:09AM Payers Insurance Name Company Name Plan Name Plan Number Policy Number [place] Group Number Start Date BCBS Bcbs [facility] [id number] N/ A BCBS [facility] [place] [id number] N/ A BCBS Bcbs [facility] [id number] N/A History of Encounters Visit Date Visit Type Provider 01/13/2018 Office visit 01/13/2018 Office visit Ricardo Pinzon AIRPLANE CABIN ATTENDANT 12/14/2017 Office visit Apolinar Anthony FABRICATION INSPECTOR 12/02/2017 Nurse visit Apolinar Anthony FABRICATION INSPECTOR 11/04/2017 Office visit Apolinar Anthony FABRICATION INSPECTOR 10/28/2017 Office visit Apolinar Anthony FABRICATION INSPECTOR 06/03/2017 Office visit Apolinar Anthony FABRICATION INSPECTOR 05/19/2017 Office visit Apolinar Anthony FABRICATION INSPECTOR 04/29/2017 Office visit Apolinar Anthony FABRICATION INSPECTOR 12/17/2016 Office visit Lizy sanchez AIRPLANE CABIN ATTENDANT 10/29/2016 Office visit ROXANE BONE 03/05/2016 Office visit ROXANE BONE 11/05/2015 Office visit Lizy sanchez AIRPLANE CABIN ATTENDANT 02/12/2015 Office visit ROXANE BONE 05/24/2014 Office visit Lizy sanchez AIRPLANE CABIN ATTENDANT 05/03/2014 Office visit 05/03/2014 Office visit ROXANE BONE 07/14/2013 Office visit ROXANE BONE 04/07/2013 Office visit ROXANE BONE 04/21/2012 Office visit Roxane Arteaga MD 04/14/2012 [facility] Roxane Arteaga MD 04/05/2012 Office visit Spencer Davis MD 02/23/2012 [facility] Spencer Davis MD 02/17/2012 Office visit Spencer Davis MD 02/12/2012 Office visit Spencer Davis MD 02/04/2012 Office visit Spencer Davis MD 01/28/2012 Office visit Spencer Davis MD 01/21/2012 Office visit Spencer Davis MD 01/07/2012 Office visit Spencer Davis MD 12/24/2011 Office visit Spencer Davis MD 12/11/2011 Office visit Spencer Davis MD 11/19/2011 Office visit Spencer Davis MD 11/11/2011 [facility] Spencer Davis MD 10/22/2011 Office visit Spencer Davis MD 09/24/2011 Office visit Spencer Davis MD 09/03/2011 Office visit Spencer Davis MD 08/06/2011 Office visit Spencer Davis MD 07/07/2011 Office visit Spencer Davis MD 05/16/2011 Office visit Spencer Davis MD 01/29/2011 Office visit ROXANE BNOE 10/30/2010 Office visit Roxane BONE -C 10/07/2010 Office visit Roxane BONE -C 10/03/2010 Procedures Spencer Davis MD 07/30/2010 Office visit Spencer Davis MD 06/17/2010 Office visit Roxane BONE -C 01/31/2010 Office visit Roxane BONE -C 05/31/2009 Office visit Roxane Calixto PA -C 05/21/2009 Office visit Roxane BONE -C
--- OUTSIDE RECORDS SUMMARY | 2019-08-09 07:11 | XMS REPORT ---
Author Author Kaylah Pinzon [facility] Phys[facility] oup Address [address] [place] [phone] Care Team Providers Care Sugar Cane Planter Name Role Phone Ricardo Pinzon PCP Roxane Calixto PreferredProvider Unavailable Allergies and Adverse Reactions Name Reaction Notes codeine sulfate passed out Plan of Treatment Planned Activity Comments Planned Date Planned Time Plan/Goal HIV 1 antibody detection 06/16/2016 12:00 AM Urinalysis dipstick (done in clinic) 12/02/2017 12:0 0 AM US ABDOMINAL COMPLETE 01/15/2018 12:00 AM CBC W/ MANUAL DIFF 01/13/2018 12:00 AM Medications Active Name Start Date [...] 2 times a day [place] F[place] 27-400-1.13-250 mq-pnu-ue-mg oral capsule 07/07/2011 04/21/2012 take 1 capsule [...] 12/02/2017 12:00 AM URINE BACTERIA CULTURE Reviewed 01/13/2018 12:00 AM ROUTINE VENIPUNCTURE Reviewed 01/13/2018 12:00 AM COMPREHEN METABOLIC PANEL Returned 01/13/2018 12:00 AM ASSAY OF AMYLASE Returned 01/13/2018 12:00 AM ASSAY OF LIPASE Returned 01/13/2018 12:00 AM C-REACTIVE PROTEIN Returned 05/03/2014 12:00 AM THER/PROPH/DIAG INJ SC/IM Reviewed 05/03/2014 12:00 AM Decadron, Per 1 Mg [facility]# [address]-45 Re viewed 05/03/2014 12:00 AM Depo-Medrol, Per 80 Mg [facility]#7604-3577-80 Reviewed 07/30/2010 12:00 AM CYTOPATH TBS C/V [...] mod History Of Immunizations Name Date Admin [facility] Name [facility] Code Trade Name Lot# Route Inj Vis [...] cy Group Number Start Date BCBS Bcbs [facility] [id number] N/ A BCBS Bcbs [facility] [id number] N/ A BCBS Bcbs [facility] [id number] N/A History of Encounters Visit Date Visit Type Provider 01/13/2018 Office visit 01/13/2018 Office visit Ricardo Pinzon HOUSE BUILDER 12/14/2017 Office visit Apolinar Anthony BAG SHAKER 12/02/2017 Nurse visit Apolinar Anthony BAG SHAKER 11/04/2017 Office visit Apolinar Anthony BAG SHAKER 10/28/2017 Office visit Apolinar Anthony BAG SHAKER 06/03/2017 Office visit Apolinar Anthony BAG SHAKER 05/19/2017 Office visit Apolinar Anthony BAG SHAKER 04/29/2017 Office visit Apolinar Anthony BAG SHAKER 12/17/2016 Office visit Lizy sanchez HOUSE BUILDER 10/29/2016 Office visit ROXANE BONE 03/05/2016 Office visit ROXANE BONE 11/05/2015 Office visit Lizy sanchez HOUSE BUILDER 02/12/2015 Office visit ROXANE BONE 05/24/2014 Office visit Lizy sanchez HOUSE BUILDER 05/03/2014 Office visit 05/03/2014 Office visit ROXANE BONE 07/14/2013 Office visit ROXANE BONE 04/07/2013 Office visit ROXANE BONE 04/21/2012 Office visit Roxane Arteaga MD 04/14/2012 [facility] Roxane Arteaga MD 04/05/2012 Office visit Spencer Davis MD 02/23/2012 [facility] Spencer Davis MD 02/17/2012 Office visit Spencer Davis MD 02/12/2012 Office visit Spencer Davis MD 02/04/2012 Office visit Spencer Davis MD 01/28/2012 Office visit Spencer Davis MD 01/21/2012 Office visit Spencer Davis MD 01/07/2012 Office visit Spencer Davis MD 12/24/2011 Office visit Spencer Davis MD 12/11/2011 Office visit Spencer Davis MD 11/19/2011 Office visit Spencer Davis MD 11/11/2011 [facility] Spencer Davis MD 10/22/2011 Office [...]
--- OUTSIDE RECORDS SUMMARY | 2019-08-09 07:12 | XMS REPORT ---
Author Author Kaylah Anthony [facility] Phys[facility] oup Address [address] [place] [phone] Care Team Providers Care Manager Of Sales Name Role Phone Apolinar Anthony PCP Arnav Calixto PreferredProvider Unavailable Allergies and Adverse Reactions [...] oral route once a day (at bedtime) Lexapro 5 mg oral tablet 12/14/2017 03/14/2018 take 1 tablet (5 mg) by oral route once daily for 30 days Name Start Date Expiration [...] route every 12 hours for 7 days Discontinued Name Start Date Discontinued Date [...] 2 times a day [place] F[place] 27-400-1.13-250 do-fom-lt-mg oral capsule 07/07/2011 04/21/2012 take 1 capsule [...] HC BMI BSA BMI Percentile O2 Sat(%) 12/14/2017 8:49:00 AM 118 mmHg 62 mmHg [...] 12/02/2017 12:00 AM URINE BACTERIA CULTURE Reviewed 05/03/2014 12:00 AM THER/PROPH/DIAG INJ SC/IM Reviewed 05/03/2014 12:00 AM Decadron, Per 1 Mg [facility]# [address]-17 Re viewed 05/03/2014 12:00 AM Depo-Medrol, Per 80 Mg [facility]#8668-3377-57 Reviewed 07/30/2010 12:00 AM CYTOPATH TBS C/V [...] 8:55AM Painful tongue Dec 14 2017 8:55AM Payers Insurance Name Company Name Plan Name Plan Number Policy Number [place] Group Number Start Date BCBS [facility] [place] [id number] N/ A BCBS [facility] [place] [id number] N/ A BCBS [facility] [place] [id number] N/A History of Encounters Visit Date Visit Type Provider 12/14/2017 Office visit Apolinar Anthony PLASTIC SEWER 12/02/2017 Nurse visit Apolinar Anthony PLASTIC SEWER 11/04/2017 Office visit Apolinar Anthony PLASTIC SEWER 10/28/2017 Office visit Apolinar Anthony NP 06/03/2017 Office visit Apolinar Anthony NP 05/19/2017 Office visit Apolinar Anthony NP 04/29/2017 Office visit Apolinar Anthony NP 12/17/2016 Office visit Lizy sanchez SUSTAINABILITY SPECIALIST 10/29/2016 Office visit ARNAV BONE 03/05/2016 Office visit ARNAV BONE 11/05/2015 Office visit Lizy sanchez SUSTAINABILITY SPECIALIST 02/12/2015 Office visit ARNAV BONE 05/24/2014 Office visit Lizy sanchez SUSTAINABILITY SPECIALIST 05/03/2014 Office visit 05/03/2014 Office visit ARNAV BONE 07/14/2013 Office visit ARNAV BONE 04/07/2013 Office visit ARNAV BONE 04/21/2012 Office visit Arnav Arteaga MD 04/14/2012 Hospital Arnav Arteaga MD 04/05/2012 Office visit Spencer Davis MD 02/23/2012 [facility] Spencer Davis MD 02/17/2012 Office visit Spencer Davis MD 02/12/2012 Office visit Spencer Davis MD 02/04/2012 Office visit Spencer Davis MD 01/28/2012 Office visit Spencer Davis MD 01/21/2012 Office visit Spencer Davis MD 01/07/2012 Office visit Spencer Davis MD 12/24/2011 Office visit Spencer Davis MD 12/11/2011 Office visit Spencer Davis MD 11/19/2011 Office visit Spencer Davis MD 11/11/2011 [facility] Spencer Davis MD 10/22/2011 Office visit Spencer Davis MD 09/24/2011 Office visit Spencer Davis MD 09/03/2011 Office visit Spencer Davis MD 08/06/2011 Office visit Spencer Davis MD 07/07/2011 Office visit Spencer Davis MD 05/16/2011 Office visit Spencer Davis MD 01/29/2011 Office visit ARNAV BONE 10/30/2010 Office visit Arnav Cobian 10/07/2010 Office visit Arnav Cobian 10/03/2010 Procedures Spencer Davis MD 07/30/2010 Office visit Spencer Davis MD 06/17/2010 Office visit Arnav Cobian 01/31/2010 Office visit Arnav Cobian 05/31/2009 Office visit Arnav Cobian 05/21/2009 Office visit Arnav Cobian
--- OUTSIDE RECORDS SUMMARY | 2019-08-09 07:12 | XMS REPORT ---
Author Author Kaylah Pinzon [facility] Physicians oup Address [address] [place] [phone] Care Team Providers Care Public Safety Teacher Name Role Phone Ricardo Pinzon PCP Roxane Calixto PreferredProvider Unavailable Allergies and Adverse Reactions Name Reaction Notes codeine sulfate passed out Plan of Treatment Planned Activity Comments Planned Date Planned Time Plan/Goal HIV 1 antibody detection 06/16/2016 12:00 AM Urinalysis dipstick (done in clinic) 12/02/2017 12:0 0 AM CBC W/ MANUAL DIFF 01/13/2018 12:00 AM US ABDOMINAL COMPLETE 01/15/2018 12:00 AM Medications Active Name Start Date [...] 2 times a day [place] F[place] 27-400-1.13-250 wl-xob-lp-mg oral capsule 07/07/2011 04/21/2012 take 1 capsule [...] Mg [facility]# [address]-39 Re viewed 05/03/2014 12:00 AM Depo-Medrol, Per 80 Mg [facility]#2551-4647-05 Reviewed 07/30/2010 12:00 AM CYTOPATH TBS C/V [...] mod History Of Immunizations Name Date Admin [place] Code Trade Name Lot# Route Inj Vis [...] cy Group Number Start Date BCBS Bcbs [facility] [id number] N/ A BCBS Bcbs [facility] [id number] N/ A BCBS Bcbs [facility] [id number] N/A History of Encounters Visit Date Visit Type Provider 01/13/2018 Office visit 01/13/2018 Office visit Ricardo Pinzon NEW CAR SALES MANAGER 12/14/2017 Office visit Apolinar Anthony ESTATE MANAGER 12/02/2017 Nurse visit Apolinar Anthony ESTATE MANAGER 11/04/2017 Office visit Apolinar Anthony ESTATE MANAGER 10/28/2017 Office visit Apolinar Anthony ESTATE MANAGER 06/03/2017 Office visit Apolinar Anthony ESTATE MANAGER 05/19/2017 Office visit Apolinar Anthony ESTATE MANAGER 04/29/2017 Office visit Apolinar Anthony ESTATE MANAGER 12/17/2016 Office visit Lizy sanchez NEW CAR SALES MANAGER 10/29/2016 Office visit ROXANE BONE 03/05/2016 Office visit ROXANE BONE 11/05/2015 Office visit Lizy sanchez NEW CAR SALES MANAGER 02/12/2015 Office visit ROXANE BONE 05/24/2014 Office visit Lizy sanchez NEW CAR SALES MANAGER 05/03/2014 Office visit 05/03/2014 Office visit ROXANE [...]
--- OUTSIDE RECORDS SUMMARY | 2019-08-09 07:12 | XMS REPORT ---
Author Author Kaylah Pinzon [facility] Address [address] [place] [id number] Care Team Providers Care Turkish Rubber Name Role Phone Ricardo Pinzon PCP Roxane Calixto PreferredProvider Unavailable Allergies and Adverse Reactions Name Reaction Notes codeine sulfate passed out Plan of Treatment Planned Activity Comments Planned Date Planned Time Plan/Goal HIV 1 antibody detection 06/16/2016 12:00 AM Urinalysis dipstick (done in clinic) 12/02/2017 12:0 0 AM CBC W/ MANUAL DIFF 01/13/2018 12:00 AM Amylase and lipase panel 01/13/2018 12:00 AM Amylase and lipase panel 01/13/2018 12:00 AM C REACTIVE PROTEIN 01/13/2018 12:00 AM US ABDOMINAL COMPLETE 01/15/2018 [...] 2 times a day [place] FARLEY 27-400-1.13-250 rt-abx-tn-mg oral capsule 07/07/2011 04/21/2012 take 1 capsule [...] 01/13/2018 12:00 AM COMPREHEN METABOLIC PANEL Returned 05/03/2014 12:00 AM THER/PROPH/DIAG INJ SC/IM Reviewed 05/03/2014 12:00 AM Decadron, Per 1 Mg [facility]# [address]-39 Re viewed 05/03/2014 12:00 AM Depo-Medrol, Per 80 Mg [facility]#1500-5714-72 Reviewed 07/30/2010 12:00 AM CYTOPATH TBS C/V [...] mod History Of Immunizations Name Date Admin [facility] Name [facility] Code Trade Name Lot# Route Inj Vis [...] cy Group Number Start Date BCBS Bcbs [facility] [id number] N/ A BCBS Bcbs [facility] [id number] N/ A BCBS Bcbs [facility] [id number] N/A History of Encounters Visit Date Visit Type Provider 01/13/2018 Office visit 01/13/2018 Office visit Ricardo Pinzon SECURITY SOLUTIONS ARCHITECT 12/14/2017 Office visit Apolinar Anthony CEMETERY VAULT INSTALLER 12/02/2017 Nurse visit Apolinar Anthony CEMETERY VAULT INSTALLER 11/04/2017 Office visit Apolinar Anthony CEMETERY VAULT INSTALLER 10/28/2017 Office visit Apolinar Anthony CEMETERY VAULT INSTALLER 06/03/2017 Office visit Apolinar Anthony CEMETERY VAULT INSTALLER 05/19/2017 Office visit Apolinar Anthony CEMETERY VAULT INSTALLER 04/29/2017 Office visit Apolinar Anthony CEMETERY VAULT INSTALLER 12/17/2016 Office visit Lizy sanchez SECURITY SOLUTIONS ARCHITECT 10/29/2016 Office visit ROXANE BONE 03/05/2016 Office visit ROXANE BONE 11/05/2015 Office visit Lizy sanchez SECURITY SOLUTIONS ARCHITECT 02/12/2015 Office visit ROXANE BONE 05/24/2014 Office visit Lizy sanchez SECURITY SOLUTIONS ARCHITECT 05/03/2014 Office visit 05/03/2014 Office visit ROXANE [...] BONE -C 01/31/2010 Office visit Roxane BONE -Licha 05/31/2009 Office visit Roxane BONE -C 05/21/2009 Office visit Roxane Cobian
--- OUTSIDE RECORDS SUMMARY | 2019-08-09 07:13 | XMS REPORT ---
Author Author Kaylah Anthony [facility] Address [address] [place] [id number] Care Team Providers Care Communications Field Technician Name Role Phone Apolinar Anthony PCP Arnav [...] 2 times a day [place] F[place]LEY 27-400-1.13-250 hj-hwx-nt-mg oral capsule 07/07/2011 04/21/2012 take 1 capsule [...] Per 1 Mg [facility]# [address]-63 Re viewed 05/03/2014 12:00 AM Depo-Medrol, Per 80 Mg [facility]#7497-3487-93 Reviewed 07/30/2010 12:00 AM CYTOPATH TBS C/V [...] 2017 11:17AM Anxiety Dec 14 2017 8:55AM Payers Insurance Name Company Name Plan Name Plan Number Policy Number Cosme cy Group Number Start Date BCBS [facility] [place] [id number] N/ A BCBS [facility] [place] [id number] N/ A BCBS [facility] [place] [id number] N/A History of Encounters Visit Date Visit Type Provider 12/14/2017 Office visit Apolinar Anthony SUPERVISOR SANDING 12/02/2017 Nurse visit Apolinar Anthony SUPERVISOR SANDING 11/04/2017 Office visit Apolinar Anthony SUPERVISOR SANDING 10/28/2017 Office visit Apolinar Anthony NP 06/03/2017 Office visit Apolinar Anthony NP 05/19/2017 Office visit Apolinar Anthony NP 04/29/2017 Office visit Apolinar Anthony NP 12/17/2016 Office visit Lizy sanchez CUT OFF OPERATOR SCORER 10/29/2016 Office visit ARNAV BONE 03/05/2016 Office visit ARNAV BONE 11/05/2015 Office visit Lizy sanchez CUT OFF OPERATOR SCORER 02/12/2015 Office visit ARNAV BONE 05/24/2014 Office visit Lizy sanchez CUT OFF OPERATOR SCORER 05/03/2014 Office visit 05/03/2014 Office visit ARNAV [...] Cobian 10/07/2010 Office visit Arnav Cobian 10/03/2010 [facility] Spencer Davis MD 07/30/2010 Office visit Spencer Davis MD 06/17/2010 Office visit Arnav Cobian 01/31/2010 Office visit Arnav Cobian 05/31/2009 Office visit Arnav Cobian 05/21/2009 Office visit Arnav Cobian
--- OUTSIDE RECORDS SUMMARY | 2019-08-09 07:13 | XMS REPORT ---
Author Author Kaylah Anthony [facility] Address [address] [place] [phone] Care Team Providers Care Senior Front End Developer Name Role Phone Apolinar Anthony PCP Arnav [...] 2 times a day [place] F[place] 27-400-1.13-250 ag-ras-an-mg oral capsule 07/07/2011 04/21/2012 take 1 capsule [...] 12:00 AM Decadron, Per 1 Mg [facility]# [address]-65 Re viewed 05/03/2014 12:00 AM Depo-Medrol, Per 80 Mg [facility]#1216-8850-64 Reviewed 07/30/2010 12:00 AM CYTOPATH TBS C/V [...] Group Number Start Date BCBS [facility] [place] [id number] N/ A BCBS [facility] [place] [id number] N/ A BCBS [facility] [place] [id number] N/A History of Encounters Visit Date Visit Type Provider 12/14/2017 Office visit Apolinar Anthony INDUSTRIAL FABRIC CUTTER 12/02/2017 Nurse visit Apolinar Anthony INDUSTRIAL FABRIC CUTTER 11/04/2017 Office visit Apolinar Anthony INDUSTRIAL FABRIC CUTTER 10/28/2017 Office visit Apolinar Anthony NP 06/03/2017 Office visit Apolinar Anthony NP 05/19/2017 Office visit Apolinar Anthony NP 04/29/2017 Office visit Apolinar Anthony NP 12/17/2016 Office visit Lizy sanchez CHIN STRAP CUTTER 10/29/2016 Office visit ARNAV BONE 03/05/2016 Office visit ARNAV BONE 11/05/2015 Office visit Lizy sanchez CHIN STRAP CUTTER 02/12/2015 Office visit ARNAV BONE 05/24/2014 Office visit Lizy sanchez CHIN STRAP CUTTER 05/03/2014 Office visit 05/03/2014 Office visit ARNAV BONE 07/14/2013 Office visit ARNAV BONE 04/07/2013 Office visit ARNAV BONE 04/21/2012 Office visit Arnav Arteaga MD 04/14/2012 Hospital Arnav Arteaga MD 04/05/2012 Office visit Spencer Davis MD 02/23/2012 [facility] Spencer Davis MD 02/17/2012 Office visit Spencer Davis MD 02/12/2012 Office visit Spencer Davis MD 02/04/2012 Office visit Spencer Davis MD 01/28/2012 Office visit Spencer Davis MD 01/21/2012 Office visit Spencer Davis MD 01/07/2012 Office visit Spencer aDvis MD 12/24/2011 Office visit Spencer Davis MD 12/11/2011 Office visit Spencer Davis MD 11/19/2011 Office visit Spencer Davis MD 11/11/2011 [facility] Spencer Davis MD 10/22/2011 Office visit [...]
--- OUTSIDE RECORDS SUMMARY | 2019-08-09 07:13 | XMS REPORT ---
Author Author Kaylah Anthony [facility] Address [address] [place] [phone] Care Team Providers Care Machine Worker Name Role Phone Apolinar Anthony PCP Roxane Calixto PreferredProvider Unavailable Allergies and Adverse Reactions Name Reaction Notes codeine sulfate passed out Plan of Treatment Planned Activity Comments Planned Date Planned Time Plan/Goal HIV 1 antibody detection 06/16/2016 12:00 AM Urinalysis dipstick (done in clinic) 12/02/2017 12:0 0 AM Urine culture and sensitivity 12/02/2017 12:00 AM Medications Active Name Start Date Estimated Completion Date SIG Co mments acyclovir 400 mg oral tablet 12/17/2016 mynor e 1 tablet (400 mg) by oral route 2 times per day Lo Loestrin Fe 1 mg-10 mcg (24)/10 mcg (2) oral tablet 12/17/2016 take 1 tablet by oral route once daily Lexapro 5 mg oral tablet 06/03/2017 take 1 tablet (5 mg) by oral route once daily for 30 days Xanax 0.25 mg oral tablet 08/06/2017 take 1/2 to 1 t ablet bid prn anxiety ciprofloxacin HCl 500 mg oral tablet 12/02/2017 12/07/2017 take 1 tablet by oral route daily for 5 days Name Start Date Expiration Date SIG [...] 2 times a day [place] 27-400-1.13-250 zu-vki-qs-mg oral capsule 07/07/2011 04/21/2012 take 1 capsule [...] 2 times per day for 5 days Problem List Description Status Onset Herpes genitalis Active Papanicolaou smear of cervix with low gr charity squamous intraepithelial lesion (LGSIL) Active 05/16/2011 VICENTE (generalized anxiety disorder) Active 11/07 Vital Signs Date Time BP-Sys(mm[Hg] BP-Myra(mm[Hg]) HR(bpm) RR(rpm) Temp WT HT HC BMI BSA BMI Percentile O2 Sat(%) 11/04/2017 4:35:00 PM 114 mmHg 76 mmHg [...] 11:17 AM URINALYSIS AUTO W/O SCOPE Reviewed 05/03/2014 12:00 AM THER/PROPH/DIAG INJ SC/IM Reviewed 05/03/2014 12:00 AM Decadron, Per 1 Mg [facility]# [address]-74 Re viewed 05/03/2014 12:00 AM Depo-Medrol, Per 80 Mg [facility]#2938-9877-47 Reviewed 07/30/2010 12:00 AM CYTOPATH TBS C/V [...] (urinary tract infection) Dec 02 2017 11:17AM Payers Insurance Name Company Name Plan Name Plan Number Policy Number [place] Group Number Start Date BCBS Bcbs [facility] [id number] N/ A BCBS [facility]cbs [facility] [id number] N/ [id number] N/A History of Encounters Visit Date Visit Type Provider 12/02/2017 Nurse visit Apolinar Anthony NP 11/04/2017 Office visit Apolinar Anthony CORRECTION OFFICER SUPERVISOR 10/28/2017 Office visit Apolinar Anthony CORRECTION OFFICER SUPERVISOR 06/03/2017 Office visit Apolinar Anthony CORRECTION OFFICER SUPERVISOR 05/19/2017 Office visit Apolinar Anthony CORRECTION OFFICER SUPERVISOR 04/29/2017 Office visit Apolinar Anthony CORRECTION OFFICER SUPERVISOR 12/17/2016 Office visit Lizy Manriquez Juwan n FIREFIGHTING EQUIPMENT SPECIALIST 10/29/2016 Office visit ROXANE BONE 03/05/2016 Office visit ROXANE BONE 11/05/2015 Office visit Lizy Echeverria n FIREFIGHTING EQUIPMENT SPECIALIST 02/12/2015 Office visit ROXANE BONE 05/24/2014 Office visit Lizy Echeverria n FIREFIGHTING EQUIPMENT SPECIALIST 05/03/2014 Office visit 05/03/2014 Office visit ROXANE BONE 07/14/2013 Office visit ROXANE BONE 04/07/2013 Office visit ROXANE BONE 04/21/2012 Office visit Roxane Arteaga MD 04/14/2012 Hospital Roxane Arteaga MD 04/05/2012 Office visit Spencer Davis MD 02/23/2012 [facility] Spencer Davis MD 02/17/2012 Office [...]
--- OUTSIDE RECORDS SUMMARY | 2019-08-09 07:14 | XMS REPORT ---
Author Author Kaylah JAMES [facility] Address [address] [place], [place] [phone] Care Team Providers Care Assessment Rn Name Role Phone ARNAV JAMES PCP Unavailable Allergies and Adverse Reactions Name Reaction Notes codeine sulfate passed out Plan of Treatment Not available. Medications Active Name Start Date Estimated Completion Date SIG Co mments Zithromax Z-Chacho 250 mg oral tablet 02/12/2015 02/17/2015 take 2 tablets (500 mg) by oral route once daily for 1 day then 1 tablet (250 mg) by oral route once daily for 4 days prednisone 20 mg oral tablet 02/12/2015 02/20/2015 4x2 days 3x2 days 2x2 days 1x2 days Name Start Date Expiration Date SIG [...] 14 take as directed for 5 days Valtrex 1 gram oral tablet 05/24/2014 06/05/2014 take 1 tablet (1,000 mg) by oral route 2 times per day for 1 day Diflucan 150 mg oral tablet 05/24/2014 05/25/2014 take 1 tablet (150 mg) by oral route every 30 days for 1 day Discontinued Name Start Date Discontinued Date SIG [...] by oral route 2 times a day Neo [facility] 27-400-1.13-250 bz-uih-ba-mg oral capsule 07/07/2011 04/21/2012 take 1 capsule by oral route once daily for 30 days lidocaine HCl 2 % mucous membrane gel 07/25/2011 04/05/2012 apply to affected area bid x 7 days Valtrex 500 mg oral tablet 01/21/2012 04/21/2012 take 1 tablet (500 mg) by oral route once daily for 30 days no meds 05/03/2014 Problem List Description Status Onset Herpes genitalis Active Papanicolaou smear of cervix with low gr charity squamous intraepithelial lesion (LGSIL) Active 05/16/2011 Vital Signs Date Time BP-Sys(mm[Hg] BP-Myra(mm[Hg]) HR(bpm) RR(rpm) Temp WT HT HC BMI BSA BMI Percentile O2 Sat(%) 02/12/2015 2:29:00 PM 120 mmHg 70 mmHg [...] Alcohol Use - Occasional Tobacco Former smoker History of Procedures Date Ordered Description Order Status 05/16/2011 12:00 AM REMOVE INTRAUTERINE DEVICE Reviewed 05/16/2011 12:00 AM CYTOPATH C/V THIN LAYER Returned 05/16/2011 12:00 AM SPECIMEN HANDLING OFFICE-LAB Reviewed 07/07/2011 12:00 AM CYTOPATH C/V THIN LAYER Reviewed 07/07/2011 12:00 AM SPECIMEN HANDLING OFFICE-LAB Reviewed 07/07/2011 12:00 AM N.GONORRHOEAE DNA AMP PROB Returned 07/07/2011 12:00 AM CHLAMYDIA CULTURE Returned 07/07/2011 12:00 AM OBSTETRIC PANEL Returned 07/07/2011 12:00 AM HIV-1ANTIBODY Returned 07/07/2011 12:00 AM URINALYSIS AUTO W/SCOPE Returned 07/07/2011 12:00 AM TRANSVAGINAL US OBSTETRIC Reviewed 10/14/2011 12:00 AM OB US >/= 14 WKS SNGL FETUS Returned 12/11/2011 12:00 AM GLUCOSE TEST Returned 12/11/2011 12:00 AM COMPLETE CBC W/AUTO DIFF WBC Returned 12/11/2011 12:00 AM Type and screen Returned 01/28/2012 12:00 AM CULTURE OTHR SPECIMN AEROBIC Returned 04/05/2012 12:00 AM CYTOPATH C/V MANUAL Returned 04/05/2012 12:00 AM SPECIMEN HANDLING OFFICE-LAB Reviewed 05/03/2014 12:00 AM THER/PROPH/DIAG INJ SC/IM Reviewed 05/03/2014 12:00 AM Decadron, Per 1 Mg [facility]# [address]-91 Re viewed 05/03/2014 12:00 AM Depo-Medrol, Per 80 Mg [facility]#4648-1742-36 Reviewed 07/30/2010 12:00 AM CYTOPATH TBS C/V [...] 05/24/2014 12:00 AM CYTOPATH C/V THIN LAYER Returned 10/03/2010 12:00 AM URINE TEST Reviewed 10/03/2010 12:00 AM BX/CURETT OF CERVIX W/SCOPE Reviewed 10/30/2010 12:00 AM URINALYSIS AUTO W/O SCOPE Reviewed Results Summary Data and Description Results 08/06/2011 4:27 PM WBC 8.4 RBC 4.22 HGB 12.90 g /dLHCT 36.70 %MCV 87.0 fLMCH 30.60 pgMCHC 35.10 g/dLRDW CV 12.20 %MPV 10.0 fLPLT 277 %NEUT 72.0 %%LYMP 20.70 %%MONO 5.40 %%EOS 1.70 %%BASO 0.20 %#NEUT 6.04 #LYMP 1.74 #MONO 0.45 #EOS 0.14 #BASO 0.02 COLOR STRAW APPEARANCE CLEAR SPEC GRAV 1.010 pH 6.5 PROTEIN NEGATIVE GLUCOSE NEGATIVE KETONE NEGATIVE BILIRUBIN NEGATIVE BLOOD NEGATIVE NITRITE NEGATIVE LEUK SCREEN NEGATIVE CASTS/LPF NEGATIVE CRYSTALS NEGATIVE MUCOUS THRDS NEGATIVE BACTERIA NEGATIVE EPITH CELLS FEW SQUAMOUS TRICHOMONAS NEGATIVE YEAST NEGATIVE ABO/Rh Type A Positive RUBELLA 29.0 IU/mL 11/11/2011 3:49 AM COLOR YELLOW APPEARANCE CLOU DY SPEC GRAV 1.020 pH 7.5 PROTEIN NEGATIVE GLUCOSE NEGATIVE KETONE NEGATIVE BILIRUBIN NEGATIVE BLOOD NEGATIVE NITRITE NEGATIVE LEUK SCREEN NEGATIVE CASTS/LPF NEGATIVE CRYSTALS 1+ AMORPHOUS MUCOUS THRDS NEGATIVE BACTERIA FEW EPITH CELLS FEW SQUAMOUS TRICHOMONAS NEGATIVE YEAST NEGATIVE 12/11/2011 10:15 AM WBC 9.0 RBC 4.04 HGB 12.50 g /dLHCT 36.10 %MCV 89.0 fLMCH 30.90 pgMCHC 34.60 g/dLRDW CV 12.60 %MPV 9.80 fLPLT 234 %NEUT 76.0 %%LYMP 17.70 %%MONO 5.40 %%EOS 0.80 %%BASO 0.10 %#NEUT 6.82 #LYMP 1.59 #MONO 0.48 #EOS 0.07 #BASO 0.01 ABO/Rh Type A Positive 02/23/2012 6:30 AM WBC 7.9 RBC 4.39 HGB 12.90 g /dLHCT 37.50 %MCV 85.0 fLMCH 29.40 pgMCHC 34.40 g/dLRDW CV 12.20 %MPV 10.30 fLPLT 253 %NEUT 65.50 %%LYMP 23.90 %%MONO 9.40 %%EOS 0.90 %%BASO 0.30 %#NEUT 5.19 #LYMP 1.89 #MONO 0.74 #EOS 0.07 #BASO 0.02 ABO/Rh Type A Positive 02/24/2012 7:10 AM WBC 10.0 RBC 4.01 HGB 11.70 g/dLHCT 34.40 %MCV 86.0 fLMCH 29.20 pgMCHC 34.0 g/dLRDW CV 12.20 %MPV 10.40 fLPLT 231 History Of Immunizations Name Date Admin Mfg [...] 2010 9:37AM Carbuncle/Furuncle Oct 07 2010 9:37AM Dysuria Oct 30 2010 3:27PM Urinary Tract [...] Ear pressure, bilateral Feb 12 2015 2:29PM Payers Insurance Name Company Name Plan Name Plan Number Policy Number Cosme Group Number Start Date [facility] [id number] N/A [facility] [id number] N/ A History of Encounters Visit Date Visit Type Provider 02/12/2015 Office visit ARNAV BONE 05/24/2014 Office visit Lizy sanchez PHOTOGRAPHIC INTELLIGENCE OFFICER 05/03/2014 Office visit ARNAV BONE 07/14/2013 Office visit ARNAV BONE 04/07/2013 Office visit ARNAV BONE 04/21/2012 Office visit Arnav Arteaga MD 04/14/2012 [facility] Arnav Arteaga MD 04/05/2012 Office visit [...]
--- OUTSIDE RECORDS SUMMARY | 2019-08-09 07:14 | XMS REPORT ---
Author Author Kaylah JAMES [facility] Address [address] [place], [place] [id number] Care Team Providers Care Technical Assoc Name Role Phone ARNAV JAMES PCP Unavailable Arnav James PreferredProvider Unavailable Allergies and Adverse Reactions Name Reaction Notes codeine sulfate passed out Plan of Treatment Planned Activity Comments Planned Date Planned Time Plan/Goal Injection, Subcutaneous/IM 03/05/2016 12:00 AM Medications Active Name Start Date Estimated Completion Date SIG Co mments Zithromax Z-Chacho 250 mg oral tablet 03/05/2016 03/10/2016 take 2 tablets (500 mg) by oral route once daily for 1 day then 1 tablet (250 mg) by oral route once daily for 4 days Name Start Date Expiration Date SIG [...] 2 times per day for 1 day Discontinued Name Start Date [...] oral route 2 times a day [place] [facility] 27-400-1.13-250 ib-xcr-io-mg oral capsule 07/07/2011 04/21/2012 take 1 capsule [...] HC BMI BSA BMI Percentile O2 Sat(%) 03/05/2016 8:37:00 AM 118 mmHg 78 mmHg [...] 12/11/2011 12:00 AM Type and screen Reviewed 01/28/2012 12:00 AM CULTURE OTHR SPECIMN AEROBIC Reviewed 04/05/2012 12:00 AM CYTOPATH C/V MANUAL Reviewed 04/05/2012 12:00 AM SPECIMEN HANDLING OFFICE-LAB Reviewed 05/03/2014 12:00 AM THER/PROPH/DIAG INJ SC/IM Reviewed 05/03/2014 12:00 AM Decadron, Per 1 Mg [facility]# [address]-84 Re viewed 05/03/2014 12:00 AM Depo-Medrol, Per 80 Mg [facility]#5390-5560-90 Reviewed 07/30/2010 12:00 AM CYTOPATH TBS C/V [...] TRICHOMONAS NEGATIVE YEAST NEGATIVE CULT ORDERED YES ABO/Rh Type A Positive Antibody Screen-Gel Negative RUBELLA 29.0 IU/mL 11/11/2011 3:49 AM COLOR YELLOW APPEARANCE CLOU DY SPEC GRAV 1.020 pH 7.5 PROTEIN NEGATIVE GLUCOSE NEGATIVE KETONE NEGATIVE BILIRUBIN NEGATIVE BLOOD NEGATIVE NITRITE NEGATIVE LEUK SCREEN NEGATIVE WBC/HPF RARE RBC/HPF NEGATIVE CASTS/LPF NEGATIVE CRYSTALS 1+ AMORPHOUS MUCOUS [...] ABO/Rh Type A Positive Antibody Screen-Gel Negative 02/23/2012 6:30 AM WBC 7.9 RBC 4.39 HGB 12.90 g /dLHCT 37.50 %MCV 85.0 fLMCH 29.40 pgMCHC 34.40 g/dLRDW SD 38 RDW CV 12.20 %MPV 10.30 fLPLT 253 NRBC# 0.00 NRBC% 0.0 %NEUT 65.50 %%LYMP 23.90 %%MONO 9.40 %%EOS 0.90 %%BASO 0.30 %#NEUT 5.19 #LYMP 1.89 #MONO 0.74 #EOS 0.07 #BASO 0.02 MANUAL DIFF NOT IND ABO/Rh Type A Positive Antibody Screen-Gel Negative 02/24/2012 7:10 AM WBC 10.0 RBC 4.01 HGB 11.70 g/dLHCT 34.40 %MCV 86.0 fLMCH 29.20 pgMCHC 34.0 g/dLRDW SD 38 RDW CV 12.20 %MPV 10.40 fLPLT 231 NRBC# 0.00 NRBC% 0.0 History Of Immunizations Name Date Admin Mfg [...] 2016 8:39AM Smoker Mar 05 2016 8:39AM Payers Insurance Name Company Name Plan Name Plan Number Policy Number [place] Group Number Start Date BCBS Bcbs [facility] [id number] N/A [facility] [id number] N/ A History of Encounters Visit Date Visit Type Provider 03/05/2016 Office visit ARNAV BONE 11/05/2015 Office visit Lizy sanchez CAR PICK UP DRIVER 02/12/2015 Office visit ARNAV BONE 05/24/2014 Office visit Lizy sanchez CAR PICK UP DRIVER 05/03/2014 Office visit 05/03/2014 Office visit ARNAV BONE 07/14/2013 Office visit ARNAV BONE 04/07/2013 Office visit ARNAV BONE 04/21/2012 Office visit Arnav Arteaga MD 04/14/2012 [facility] Arnav Arteaga MD 04/05/2012 Office visit Spencer Davis MD 02/23/2012 [facility] Spencer Davis MD 02/17/2012 Office visit Spencer Davis MD 02/12/2012 Office visit Spencer Davis MD 02/04/2012 Office visit Spencer Davis MD 01/28/2012 Office visit Spencer Davis MD 01/21/2012 Office visit Spencer Davis MD 01/07/2012 Office visit Spencer Davis MD 12/24/2011 Office visit Spencer Davis MD 12/11/2011 Office visit Spencer Davis MD 11/19/2011 Office visit Spencer Davis MD 11/11/2011 [facility] Spencer Davis MD 10/22/2011 Office visit Spencer Davis MD 09/24/2011 Office visit Spencer Davis MD 09/03/2011 Office visit Specner Davis MD 08/06/2011 Office visit Spencer Davis [...]
--- OUTSIDE RECORDS SUMMARY | 2019-08-09 07:14 | XMS REPORT ---
Author Author Kaylah Anthony [facility] Address [address] [place] [id number] Care Team Providers Care Procedures Analyst Name Role Phone Apolinar Anthony PCP Arnav Calixto PreferredProvider Unavailable Allergies and Adverse Reactions Name Reaction Notes codeine sulfate passed out Plan of Treatment Planned Activity Comments Planned Date Planned Time Plan/Goal HIV 1 antibody detection 06/16/2016 12:00 AM Medications Active Name Start Date [...] to 1 t ablet bid prn anxiety Name Start Date Expiration Date SIG Comments [...] 2 times a day [place] 27-400-1.13-250 ix-pks-dk-mg oral capsule 07/07/2011 04/21/2012 take 1 capsule [...] 06/03/2017 12:00 AM THER/PROPH/DIAG INJ SC/IM Reviewed 05/03/2014 12:00 AM THER/PROPH/DIAG INJ SC/IM Reviewed 05/03/2014 12:00 AM Decadron, Per [address] [facility]# [address]-22 Re viewed 05/03/2014 12:00 AM Depo-Medrol, Per [address] [facility]#1618-4879-14 Reviewed 07/30/2010 12:00 AM CYTOPATH TBS C/V [...] 12/17/2016 10:42 AM Test, Urine negati ve History Of [...] of both feet Nov 04 2017 4:39PM Payers Insurance Name Company Name Plan Name Plan Number Policy Number [place] Group Number Start Date BCBS Bcbs [facility] [id number] N/[id number] N/ A History of Encounters Visit Date Visit Type Provider 11/04/2017 Office visit Apolinar Anthony NP 10/28/2017 Office visit Apolinar Anthony NP 06/03/2017 Office visit Apolinar Anthony NP 05/19/2017 Office visit Apolinar Anthony NP 04/29/2017 Office visit Apolinar Anthony NP 12/17/2016 Office visit Lizy sanchez TRAVELING INVENTORY ASSOCIATE 10/29/2016 Office visit ARNAV BONE 03/05/2016 Office visit ARNAV BONE 11/05/2015 Office visit Lizy sanchez TRAVELING INVENTORY ASSOCIATE 02/12/2015 Office visit ARNAV BONE 05/24/2014 Office visit Lizy sanchez TRAVELING INVENTORY ASSOCIATE 05/03/2014 Office visit 05/03/2014 Office visit ARNAV BONE 07/14/2013 Office visit ARNAV BONE 04/07/2013 Office visit ARNAV BONE 04/21/2012 Office visit Arnav Arteaga MD 04/14/2012 [facility] Arnav Arteaga MD 04/05/2012 Office visit Spencer Davis MD 02/23/2012 [facility] Spencer Davis MD 02/17/2012 Office visit Spencer Davis MD 02/12/2012 Office visit Spencer Davis MD 02/04/2012 Office visit Spencer Davis MD 01/28/2012 Office visit Spencer Davis MD 01/21/2012 Office visit Spencer Davis MD 01/07/2012 Office visit Spencer Davis MD 12/24/2011 Office visit Spencer Davis MD 12/11/2011 Office visit Spencer Davis MD 11/19/2011 Office visit Spencer Davis MD 11/11/2011 [facility] Spencer Davis MD 10/22/2011 Office [...]
--- OUTSIDE RECORDS SUMMARY | 2019-08-09 07:14 | XMS REPORT ---
Author Author Kaylah Anthony [facility] Address [address] [place] [id number] Care Team Providers Care Vice President Supply Chain Name Role Phone Apolinar Atnhony PCP Arnav Calixto PreferredProvider Unavailable Allergies and [...] 2 times a day [place] 27-400-1.13-250 bx-oof-jb-mg oral capsule 07/07/2011 04/21/2012 take 1 capsule [...] 1 Mg [facility]# [address]-87 Re viewed 05/03/2014 12:00 AM Depo-Medrol, Per 80 Mg [facility]#2741-5124-51 Reviewed 07/30/2010 12:00 AM CYTOPATH TBS C/V [...] of both feet Oct 28 2017 5:03PM Payers Insurance Name Company Name Plan Name Plan Number Policy Number [employer] Group Number Start Date BCBS [facility]cbs [facility] [id number] N/[id number] N/ A History of Encounters Visit Date Visit Type Provider 11/04/2017 Office visit Apolinar Anthony NP 10/28/2017 Office visit Apolinar Anthony NP 06/03/2017 Office visit Apolinar Anthony NP 05/19/2017 Office visit Apolinar Anthony NP 04/29/2017 Office visit Apolinar Anthony NP 12/17/2016 Office visit Lizy sanchez MINE CAR MECHANIC 10/29/2016 Office visit ARNAV BONE 03/05/2016 Office visit ARNAV BONE 11/05/2015 Office visit Lizy sanchez MINE CAR MECHANIC 02/12/2015 Office visit ARNAV BONE 05/24/2014 Office visit Lizy sanchez MINE CAR MECHANIC 05/03/2014 Office visit 05/03/2014 Office visit ARNAV BONE 07/14/2013 Office visit ARNAV BONE 04/07/2013 Office visit ARNAV BONE 04/21/2012 Office visit Arnav Arteaga MD 04/14/2012 [facility] Arnav Arteaga MD 04/05/2012 Office visit Spencer Davis MD 02/23/2012 [facility] Spencer Davis MD 02/17/2012 Office visit Spencer Davis MD 02/12/2012 Office visit Spencer Davis MD 02/04/2012 Office visit Spencer Davis MD 01/28/2012 Office visit Spencer Davis MD 01/21/2012 Office visit Spencer Davis MD 01/07/2012 Office visit Spencer Davis MD 12/24/2011 Office visit Spencer Davis MD 12/11/2011 Office visit Spencer Davis MD 11/19/2011 Office visit Spencer Davis MD 11/11/2011 [facility] Spencer Davis MD 10/22/2011 Office [...]
--- OUTSIDE RECORDS SUMMARY | 2019-08-09 07:15 | XMS REPORT ---
Author Author Kaylah Churchill Organization [facility] Address [address] [place], [place] [address] Care Team Providers Care Certified Medical Transcriptionist Name Role Phone Lizy Churchill PCP Unavailable Arnav Calixto PreferredProvider Unavailable Allergies and Adverse Reactions Name Reaction Notes codeine sulfate passed out Plan of Treatment Planned Activity Comments Planned Date Planned Time Plan/Goal HIV 1 antibody detection 06/16/2016 12:00 AM Pap smear auto thin prep w manual MD screen 12/17/2016 12:00 AM Medications Active Name Start Date Estimated Completion Date SIG Co mments acyclovir 400 mg oral tablet 12/17/2016 mynor e 1 tablet (400 mg) by oral route 2 times per day Lo Loestrin Fe 1 mg-10 mcg (24)/10 mcg (2) oral tablet 12/17/2016 take 1 tablet by oral route once daily Name Start Date Expiration Date SIG Comments [...] oral route once daily for 4 days Xanax 0.5 mg oral tablet 10/29/2016 11/28/201603/31 to 1 twice daily as needed for anxiety must last 30 days Discontinued Name Start Date Discontinued [...] 2 times a day [place] 27-400-1.13-250 fa-iwf-sq-mg oral capsule 07/07/2011 04/21/2012 take 1 capsule [...] HC BMI BSA BMI Percentile O2 Sat(%) 12/17/2016 9:02:00 AM 119 mmHg 74 mmHg [...] Reviewed 12/17/2016 10:42 AM URINE TEST Reviewed 01/28/2012 12:00 AM CULTURE OTHR SPECIMN AEROBIC Reviewed 04/05/2012 12:00 AM CYTOPATH C/V MANUAL Reviewed 04/05/2012 12:00 AM SPECIMEN HANDLING OFFICE-LAB Reviewed 05/03/2014 12:00 AM THER/PROPH/DIAG INJ SC/IM Reviewed 05/03/2014 12:00 AM Decadron, Per 1 Mg [facility]# [address]-78 Re viewed 05/03/2014 12:00 AM Depo-Medrol, Per 80 Mg [facility]#7393-9917-20 Reviewed 07/30/2010 12:00 AM CYTOPATH TBS C/V [...] 9:07AM Contraceptive management Dec 17 2016 9:07AM Payers Insurance Name Company Name Plan Name Plan Number Policy Number [employer] Group Number Start Date BCBS [facility]cbs [facility] [id number] N/[id number] N/ A History of Encounters Visit Date Visit Type Provider 12/17/2016 Office visit Lizy sanchez BUSINESS DEVELOPMENT RECRUITER 10/29/2016 Office visit ARNAV BONE 03/05/2016 Office visit ARNAV BONE 11/05/2015 Office visit Lizy sanchez BUSINESS DEVELOPMENT RECRUITER 02/12/2015 Office visit ARNAV BONE 05/24/2014 Office visit Lizy sanchez BUSINESS DEVELOPMENT RECRUITER 05/03/2014 Office visit 05/03/2014 Office visit ARNAV BONE 07/14/2013 Office visit ARNAV BONE 04/07/2013 Office visit ARNAV BONE 04/21/2012 Office visit Arnav Arteaga MD 04/14/2012 [facility] Arnav Arteaga MD 04/05/2012 Office visit Spencer Davis MD 02/23/2012 [facility] Spencer Davis MD 02/17/2012 Office visit Spencer Davis MD 02/12/2012 Office visit Spencer Davis MD 02/04/2012 Office visit Spencer Davis MD 01/28/2012 Office visit Spencer Davis MD 01/21/2012 Office visit Spencer Davis MD 01/07/2012 Office visit Spencer Davis MD 12/24/2011 Office visit Spencer Davis MD 12/11/2011 Office visit Spencer Davis MD 11/19/2011 Office visit Spencer Davis MD 11/11/2011 [facility] Spencer Davis MD 10/22/2011 Office [...]
--- OUTSIDE RECORDS SUMMARY | 2019-08-09 07:15 | XMS REPORT ---
Author Author Kaylah Anthony [facility] Address [address] [place], [place] [address] Care Team Providers Care Larriman Name Role Phone Apolinar Anthony PCP Arnav [...] 1 tablet by oral route once daily amoxicillin 875 mg oral tablet 06/03/2017 t les 1 tablet (875 mg) by oral route every 12 hours for 7 days Lexapro 5 mg oral tablet 06/03/2017 take [...] days Xanax 0.5 mg oral tablet 10/29/2016 11/28/2016 1/2 to 1 twice daily as needed for [...] 2 times a day [place] 27-400-1.13-250 jf-bia-ek-mg oral capsule 07/07/2011 04/21/2012 take 1 capsule [...] HC BMI BSA BMI Percentile O2 Sat(%) 06/03/2017 5:49:00 PM 114 mmHg 78 mmHg [...] bpm 99.3 F 141 lbs 64 in 24.20 kg/m2 1.70 m2 06/17/2010 3:48:00 PM 110 mmHg 64 mmHg [...] 05/03/2014 12:00 AM Decadron, Per 1 Mg [facility]# [address]-39 Re viewed 05/03/2014 12:00 AM Depo-Medrol, Per 80 Mg [facility]#7166-4278-83 Reviewed 07/30/2010 12:00 AM CYTOPATH TBS C/V [...] Of Immunizations Name Date Admin Mfg Name Mf Code Trade Name Lot# Route [...] 8:39AM HIV exposure Jun 16 2016 9:55AM VIECNTE (generalized anxiety disorder) Oct 29 2016 2:07PM Routine gynecological examination Dec 17 2016 9:07AM Counseling for control, oral contraceptives Dec 17 9:07AM Contraceptive management Dec 17 2016 9:07AM Influenza Apr 29 2017 3:51PM Anxiety May 19 2017 11:27AM Cough Jun 03 2017 5:55PM Sinusitis, Acute Jun 03 2017 5:55PM Cough Apr 29 2017 3:51PM Fever Apr 29 2017 3:51PM Payers Insurance Name Company Name Plan Name Plan Number Policy Number [employer] Group Number Start Date BCBS [facility] [place] [id number] N/A BCBS [facility] [place] [id number] N/ A History of Encounters Visit Date Visit Type Provider 06/03/2017 Office visit Apolinar Anthony NP 05/19/2017 Office visit Apolinar Anthony NP 04/29/2017 Office visit Apolinar Anthony NP 12/17/2016 Office visit Lizy sanchez PRINTING ROLLER HANDLER 10/29/2016 Office visit ARNAV BONE 03/05/2016 Office visit ARNAV BONE 11/05/2015 Office visit Lizy sanchez PRINTING ROLLER HANDLER 02/12/2015 Office visit ANRAV BONE 05/24/2014 Office visit Lizy sanchez PRINTING ROLLER HANDLER 05/03/2014 Office visit 05/03/2014 Office visit ARNAV BONE 07/14/2013 Office visit ARNAV BONE 04/07/2013 Office visit ARNAV BONE 04/21/2012 Office visit Arnav Arteaga MD 04/14/2012 [facility] Arnav Arteaga MD 04/05/2012 Office visit [...] Cobian 10/07/2010 Office visit Arnav Cobian 10/03/[address] [facility] Spencer Davis MD 07/30/2010 Office visit Spencer Davis MD 06/17/2010 Office visit Arnav Cobian 01/31/2010 Office visit Arnav Cobian 05/31/2009 Office visit Arnav Cobian 05/21/2009 Office visit Arnav Cobian
--- OUTSIDE RECORDS SUMMARY | 2019-08-09 07:15 | XMS REPORT ---
Author Author Kaylah Churchill [facility] Address [address] [place], [place] [address] Care Team Providers Care Cadd Operator Name Role Phone Lizy Churchill PCP Unavailable Allergies and Adverse Reactions Name Reaction Notes codeine sulfate passed out Plan of Treatment Planned Activity Comments Planned Date Planned Time Plan/Goal CYTOPATH C/V THIN LAYER 11/05/2015 12:00 AM Human papillomavirus (HPV) DNA assay 11/05/2015 12:0 0 AM Medications Name Start Date Expiration Date SIG Comments [...] days 3x2 days 2x2 days 1x2 days Discontinued Name Start Date Discontinued Date [...] oral route 2 times a day Amiececy [facility] 27-400-1.13-250 ay-rwx-xq-mg oral capsule 07/07/2011 04/21/2012 take 1 capsule [...] HC BMI BSA BMI Percentile O2 Sat(%) 11/05/2015 3:43:00 PM 119 mmHg 76 mmHg [...] Per 1 Mg [facility]# [address]-96 Re viewed 05/03/2014 12:00 AM Depo-Medrol, Per 80 Mg [place]#6684-3515-80 Reviewed 07/30/2010 12:00 AM CYTOPATH TBS C/V [...] Routine gynecological examination Nov 05 2015 3:46PM Payers Insurance Name Company Name Plan Name Plan Number Policy Number [employer] cy Group Number Start Date [facility] [id number] N/A [facility] [id number] N/ A History of Encounters Visit Date Visit Type Provider 11/05/2015 Office visit Lizy sanchez WAFER LINE WORKER 02/12/2015 Office visit ARNAV BONE 05/24/2014 Office visit Lizy Echeverria daniel WAFER LINE WORKER 05/03/2014 Office visit 05/03/2014 Office visit ARNAV BONE 07/14/2013 Office visit ARNAV BONE 04/07/2013 Office visit ARNAV BONE 04/21/2012 Office visit Arnav Arteaga MD 04/14/2012 [facility] Arnav Arteaga MD 04/05/2012 Office visit Spencer Davis MD 02/23/2012 [facility] Spencer Davis MD 02/17/2012 Office visit Spencer Davis MD 02/12/2012 Office visit Spencer Davis MD 02/04/2012 Office visit Spencer Davis MD 01/28/2012 Office visit Spencer Davis MD 01/21/2012 Office visit Spencer Davis MD 01/07/2012 Office visit Spencer Davis MD 12/24/2011 Office visit Spencer Davis MD 12/11/2011 Office visit Spencer Davis MD 11/19/2011 Office visit Spencer Davis MD 11/11/2011 [facility] Spencer Davis MD 10/22/2011 Office visit Spencer Davis MD 09/24/2011 Office visit Spencer Davis MD 09/03/2011 Office visit Spencer Davis MD 08/06/2011 Office visit Spencer Davis MD 07/07/2011 Office visit Spencer Davis MD 05/16/2011 Office visit Spencer Davis MD 01/29/2011 Office visit ARNAV BONE 10/30/2010 Office visit Arnav Calixto PA -C 10/07/2010 Office visit Arnav BONE -C 10/03/2010 Procedures Spencer Davis MD 07/30/2010 Office visit Spencer Davis MD 06/17/2010 Office visit Arnav Calixto PA -C 01/31/2010 Office visit Arnav Calixto PA -C 05/31/2009 Office visit Arnav BONE -C 05/21/2009 Office visit Arnav Cobian
--- OUTSIDE RECORDS SUMMARY | 2019-08-09 07:16 | XMS REPORT ---
Author Author Kaylah Anthony [facility] Address [address] [place] [address] Care Team Providers Care Extrusion Former Name Role Phone Apolinar Anthony PCP Arnav [...] 2 times a day [place] 27-400-1.13-250 go-lcw-ce-mg oral capsule 07/07/2011 04/21/2012 take 1 capsule [...] Per 1 Mg [facility]# [address]-58 Re viewed 05/03/2014 12:00 AM Depo-Medrol, Per 80 Mg [facility]#1080-[address]-90 Reviewed 07/30/2010 12:00 AM CYTOPATH TBS C/V [...] 5:55PM Sinusitis, Acute Jun 03 2017 5:55PM Payers Insurance Name Company Name Plan Name Plan Number Policy Number [employer] Group Number Start Date BCBS Bcbs [facility] [id number] N/A BCBS [facility] [id number] N/ A History of Encounters Visit Date Visit Type Provider 06/03/2017 Office visit Apolinar Anthony NP 05/19/2017 Office visit Apolinar Anthony NP 04/29/2017 Office visit Apolinar Anthony NP 12/17/2016 Office visit Lizy sanchez PERSONAL CARE ATTENDANT 10/29/2016 Office visit ARNAV BONE 03/05/2016 Office visit ARNAV BONE 11/05/2015 Office visit Lizy sanchez PERSONAL CARE ATTENDANT 02/12/2015 Office visit ARNAV BONE 05/24/2014 Office visit Lizy sanchez PERSONAL CARE ATTENDANT 05/03/2014 Office visit 05/03/2014 Office visit ARNAV BONE 07/14/2013 Office visit ARNAV BONE 04/07/2013 Office visit ARNAV BONE 04/21/2012 Office visit Arnav Arteaga MD 04/14/2012 [facility] Arnav Arteaga MD 04/05/2012 Office visit Spencer [...] Spencer Davis MD 01/29/2011 Office visit ARNAV OBNE 10/30/2010 Office visit Arnav Cobian 10/07/2010 Office visit Arnav Cobian 10/03/2010 [facility] Spencer Davis MD 07/30/2010 Office visit Spencer Davis MD 06/17/2010 Office visit Arnav Cobian 01/31/2010 Office visit Arnav Cobian 05/31/2009 Office visit Arnav Cobian 05/21/2009 Office visit Arnav Cobian
--- OUTSIDE RECORDS SUMMARY | 2019-08-09 07:16 | XMS REPORT ---
Author Author Kaylah JAMES [facility] Address [address] [place], [place] [address] Care Team Providers Care Can Dragger Name Role Phone ARNAV JAMES PCP Unavailable Arnav James PreferredProvider Unavailable Allergies and Adverse Reactions Name Reaction Notes codeine sulfate passed out Plan of Treatment Planned Activity Comments Planned Date Planned Time Plan/Goal HIV 1 antibody detection 06/16/2016 12:00 AM Medications Name Start Date Expiration Date [...] oral route once daily for 4 days Discontinued Name Start Date Discontinued Date [...] by oral route 2 times a [facility] 27-400-1.13-250 dl-qxi-um-mg oral capsule 07/07/2011 04/21/2012 take 1 capsule [...] 05/03/2014 12:00 AM Decadron, Per 1 Mg [facility]# [address]-23 Re viewed 05/03/2014 12:00 AM Depo-Medrol, Per 80 Mg [facility]#5156-7857-11 Reviewed 07/30/2010 12:00 AM CYTOPATH TBS C/V [...] 8:39AM HIV exposure Jun 16 2016 9:55AM Payers Insurance Name Company Name Plan Name Plan Number Policy Number [employer] Group [id number] N/A [facility] [id number] N/ A History of Encounters Visit Date Visit Type Provider 03/05/2016 Office visit ARNAV BONE 11/05/2015 Office visit Lizy sanchez DISTILLERY WORKER 02/12/2015 Office visit ARNAV BONE 05/24/2014 Office visit Lizy sanchez DISTILLERY WORKER 05/03/2014 Office visit 05/03/2014 Office visit ARNAV BONE 07/14/2013 Office visit ARNAV BONE 04/07/2013 Office visit ARNAV BONE 04/21/2012 Office visit Arnav Arteaga MD 04/14/2012 [facility] Arnav Arteaga MD 04/05/2012 Office visit [...]
--- OUTSIDE RECORDS SUMMARY | 2019-08-09 07:16 | XMS REPORT ---
Author Author Kaylah JAMES [facility] Address [address] [place], [place] [address] Care Team Providers Care Carpet Technician Name Role Phone ARNAV JAMES PCP Unavailable Arnav James PreferredProvider Unavailable Allergies and Adverse Reactions Name Reaction Notes codeine sulfate passed out Plan of Treatment Planned Activity Comments Planned Date Planned Time Plan/Goal HIV 1 antibody detection 06/16/2016 12:00 AM Medications Active Name Start Date Estimated Completion Date SIG Co mments acyclovir 400 mg oral tablet 10/21/2016 mynor e 1 tablet (400 mg) by oral route 2 times per day Xanax 0.5 mg oral tablet 10/29/2016 11/28/201603/31 to 1 twice daily as needed for anxiety must last 30 days Name Start Date Expiration Date [...] oral route 2 times a day [facility] 27-400-1.13-250 jp-kmg-qx-mg oral capsule 07/07/2011 04/21/2012 take 1 capsule [...] HC BMI BSA BMI Percentile O2 Sat(%) 10/29/2016 2:07:00 PM 105 mmHg 68 mmHg [...] 05/03/2014 12:00 AM Decadron, Per 1 Mg [facility]# [address]-15 Re viewed 05/03/2014 12:00 AM Depo-Medrol, Per 80 Mg [facility]#3650-0042-17 Reviewed 07/30/2010 12:00 AM CYTOPATH TBS C/V [...] (generalized anxiety disorder) Oct 29 2016 2:07PM Payers Insurance Name Company Name Plan Name Plan Number Policy Number Cosme cy Group Number Start Date BCBS [facility] [id number] [id number] N/ A History of Encounters Visit Date Visit Type Provider 10/29/2016 Office visit ARNAV BONE 03/05/2016 Office visit ARNAV BONE 11/05/2015 Office visit Lizy Harrykristopher n LEAD BLENDER 02/12/2015 Office visit ARNAV BONE 05/24/2014 Office visit Lizy Adriananabel n LEAD BLENDER 05/03/2014 Office visit 05/03/2014 Office visit ARNAV BONE 07/14/2013 Office visit ARNAV BONE 04/07/2013 Office visit ARNAV BONE 04/21/2012 Office visit Arnav Arteaga MD 04/14/2012 [facility] Arnav Arteaga MD 04/05/2012 Office visit Spencer Davis MD 02/23/2012 [facility] Spencer Davis MD 02/17/2012 Office visit Spencer Davis MD 02/12/2012 Office visit Spencer Davis MD 02/04/2012 Office visit Spencer Davis MD 01/28/2012 Office visit Spencer Davis MD 01/21/2012 Office visit Spencer Davis MD 01/07/2012 Office visit Spencer Davis MD 12/24/2011 Office visit Spencer Davis MD 12/11/2011 Office visit Spencer Davis MD 11/19/2011 Office visit Spencer Davis MD 11/11/2011 [facility] Spencer Davis MD 10/22/2011 Office visit Spencer Davis MD 09/24/2011 Office visit Spencer Davis MD 09/03/2011 Office visit Spencer Davis MD 08/06/2011 Office visit Spencer Davis MD 07/07/2011 Office visit Spencer Davis MD 05/16/2011 Office visit Spencer Davis MD 01/29/2011 Office visit ARNAV BONE 10/30/2010 Office visit Arnav PowersC 10/07/2010 Office visit Arnav Cobian 10/03/2010 Procedures Spencer Davis MD 07/30/2010 Office visit Spencer Davis MD 06/17/2010 Office visit Arnav Cobian 01/31/2010 Office visit Arnav Cobian 05/31/2009 Office visit Arnav Cobian 05/21/2009 Office visit Arnav Cobian
--- OUTSIDE RECORDS SUMMARY | 2019-08-09 07:17 | XMS REPORT | Continuity of Care Document ---
Demographics Preferred Language Unknown Marital Status Unknown Sikh Affiliation Unknown Race Unknown Ethnic Group Unknown Author Organization Unknown Address Unknown Phone Unavailable Allergies Active Description Code Type Severity Reaction Onset Reported/Identified Relationship to Patient Clinical Status Yes CODEINE 36744005 DRUG N/A N/A Yes codeine [id number] Drug Allergy Moderate N/A 07/28/2019 Medications There is no data. Problems Date Dx Coded Attending Type Code Diagnosis Diagnosed By 06/29/2019 ENRRIQUE MEDRANO DIRECT CARE SUPERVISOR Ot Z36.89 ENCOUNTER FOR OTHER SPECIFIED 06/29/2019 ENRRIQUE MEDRANO DIRECT CARE SUPERVISOR Ot Z3A.21 21 WEEKS GESTATION OF 06/30/2019 NESBITT DO, FRANCK C Ot O24.4 10 GESTATIONAL DIABETES MELLITUS IN PREGNAN 06/30/2019 NESBITT DO, FRANCK C Ot Z3A.2 3 23 WEEKS GESTATION OF 07/01/2019 NESBITT DO, FRANCK C Ot O24.4 10 GESTATIONAL DIABETES MELLITUS IN PREGNAN 07/01/2019 NESBITT DO, FRANCK C Ot Z3A.2 3 23 WEEKS GESTATION OF 07/01/2019 NESBITT DO, FRANCK C Ot O24.4 10 GESTATIONAL DIABETES MELLITUS IN PREGNAN 07/01/2019 NESBITT DO, FRANCK C Ot Z3A.2 3 23 WEEKS GESTATION OF 07/01/2019 NESBITT DO, FRANCK C Ot O24.4 10 GESTATIONAL DIABETES MELLITUS IN PREGNAN 07/01/2019 NESBITT DO, FRANCK C Ot Z3A.2 3 23 WEEKS GESTATION OF 07/12/2019 NESBITT DO, FRANCK C Ot O24.4 10 GESTATIONAL DIABETES MELLITUS IN PREGNAN 07/12/2019 NESBITT DO, FRANCK C Ot Z3A.3 5 35 WEEKS GESTATION OF 08/01/2019 FENECH DO, ARNAV S Ot O24.419 GESTATIONAL DIABETES MELLITUS IN PREGNAN 08/01/2019 FENECH DO, ARNAV S Ot O62.9 ABNORMALITY OF FORCES OF LABOR, UNSPECIF 08/01/2019 FENECH DO, ARNAV S Ot Z3A.37 37 WEEKS GESTATION OF 08/01/2019 FENECH DO, ARNAV S Ot O24.419 GESTATIONAL DIABETES MELLITUS IN PREGNAN 08/01/2019 FENECH DO, ARNAV S Ot O62.9 ABNORMALITY OF FORCES OF LABOR, UNSPECIF 08/01/2019 ARNAV JONES DO Ot Z3A.37 37 WEEKS GESTATION OF Procedures There is no data. Results There is no data. Encounters ACCT No. Visit Date/Time Discharge Status Pt. Type Provider Facility Loc./Unit Complaint [id number] 11/23/2018 13:47:57 Document Registration [id number] 01/15/2018 09:16:02 Document Registration [id number] 01/14/2018 08:41:07 Document Registration [id number] 12/02/2017 15:49:53 Document Registration [id number] 07/28/2019 10:33:00 13:31:00 DIS Outpatient ARNAV JONES DO Via [facility] WSo CONTRACTIONS [id number] 07/11/2019 08:30:00 23:59:59 CLS Outpatient FRANCK NESBITT DO [facility] RAD GDM [id number] 06/29/2019 10:02:00 23:59:59 CLS Outpatient FRANCK NESBITT DO [facility] RAD GDM [id number] 04/04/2019 11:40:00 23:59:59 CLS Outpatient ENRRIQUE MEDRANO APRN [facility] RAD [id number] 08/09/2019 07:00:00 P EN Preadmit FRANCK NESBITT DO I NDUCTION [id number] 03/14/2019 10:15:35 03/14/2019 23:59: 59 CLS Outpatient Ricardo Pinzon [id number] 12/13/2018 10:52:24 12/13/2018 23:59: 59 CLS Outpatient Lizy Churchill [id number] 12/13/2018 10:08:51 12/13/2018 23:59: 59 CLS Outpatient Ricardo Pinzon [id number] 11/23/2018 09:14:20 11/23/2018 23:59: 59 CLS Outpatient ARNAV JAMES [id number] 08/06/2018 11:41:35 08/06/2018 23:59: 59 CLS Outpatient ARNAV JAMES [id number] 08/03/2018 10:35:46 08/03/2018 23:59: 59 CLS Outpatient JACOB ARNAV Camargo [id number] 05/10/2018 09:33:14 05/10/2018 23:59: 59 CLS Outpatient ARNAV JAMES [id number] 05/03/2018 14:22:12 05/03/2018 23:59: 59 CLS Outpatient JenniArnav [id number] 04/12/2018 17:37:59 04/12/2018 23:59: 59 CLS Outpatient Ricardo Pinzon [id number] 03/12/2018 14:40:29 03/12/2018 23:59: 59 CLS Outpatient Clara Landis [id number] 2018 10:18:04 2018 23:59: 59 CLS Outpatient Lizy Churchill [id number] 01/13/2018 17:23:22 01/13/2018 23:59: 59 CLS Outpatient Ricardo Pinzon [id number] 12/14/2017 09:41:44 12/14/2017 23:59: 59 CLS Outpatient Gabrielle Apolinar [id number] 12/02/2017 12:12:59 12/02/2017 23:59: 59 CLS Outpatient Gabrielle Apolinar [id number] 06/03/2017 18:30:44 06/03/2017 23:59: 59 CLS Outpatient Osmar Anthonyt [id number] 05/19/2017 12:05:16 05/19/2017 23:59: 59 CLS Outpatient Apolinar Anthony [id number] 04/29/2017 16:45:59 04/29/2017 23:59: 59 CLS Outpatient Apolinar Anthony [id number] 12/17/2016 17:57:28 12/17/2016 23:59: 59 CLS Outpatient Lizy Churchill [id number] 10/29/2016 10:40:33 10/29/2016 23:59: 59 CLS Outpatient ARNAV JAMES [id number] 03/05/2016 09:22:11 03/05/2016 23:59: 59 CLS Outpatient ARNAV JAMES [id number] 11/05/2015 16:25:39 11/05/2015 23:59: 59 CLS Outpatient Lizy Churchill [id number] 02/12/2015 14:58:04 02/12/2015 23:59: 59 CLS Outpatient ARNAV JAMES [id number] 07/14/2013 14:59:22 07/14/2013 23:59: 59 [facility] Outpatient ARNAV JAMES [id number] 04/07/2013 11:46:35 04/07/2013 23:59: 59 [facility] Outpatient ARNAV JAMES
--- OUTSIDE RECORDS SUMMARY | 2019-08-09 07:17 | XMS REPORT ---
Author Author Kaylah Anthony [facility] oup Address [address] [place] [id number] Care Team Providers Care Gate Agent Name Role Phone Apolinar Anthony PCP Arnav [...] 2 times a day [place] FARLEY [phone] [id number] oral capsule 07/07/2011 04/21/2012 take 1 capsule [...] 1 Mg [facility]# [id number] Re viewed 05/03/2014 12:00 AM Depo-Medrol, Per 80 Mg [facility]#[id number] Reviewed 07/30/2010 12:00 AM CYTOPATH TBS C/V [...] Group Number Start Date [employer] [place] [id number] N/A [employer] [place] [id number] N/ A History of Encounters Visit Date Visit Type Provider 06/03/2017 Office visit Apolinar Anthony NP 05/19/2017 Office visit Apolinar Anthony NP 04/29/2017 Office visit Apolinar Anthony NP 12/17/2016 Office visit Lizy sanchez MACHINE ASSISTANT 10/29/2016 Office visit ARNAV BONE 03/05/2016 Office visit ARNAV BONE 11/05/2015 Office visit Lizy sanchez MACHINE ASSISTANT 02/12/2015 Office visit ARNAV BONE 05/24/2014 Office visit Lizy sanchez MACHINE ASSISTANT 05/03/2014 Office visit 05/03/2014 Office visit ARNAV [...] Hospital Spencer Davis MD 10/22/2011 Office visit Sepncer Davis MD 09/24/2011 Office visit Spencer Davis MD 09/03/2011 Office visit Spencer Davis MD 08/06/2011 Office visit Spencer Davsi MD 07/07/2011 Office visit Spencer Davis MD 05/16/2011 Office visit Spencer Davis MD 01/29/2011 Office visit ARNAV BONE 10/30/2010 Office visit Arnav Cobian 10/07/2010 Office visit Arnav Cobian 10/03/2010 [facility] Spencer Davis MD 07/30/2010 Office visit Spencer Davis MD 06/17/2010 Office visit Arnav Cobian 01/31/2010 Office visit Arnav Cobian 05/31/2009 Office visit Arnav Cobian 05/21/2009 Office visit Arnav Cobian
[2019-08-09] MEDS ORDERED: MISOPROSTOL 100 MCG (CYTOTEC) TAB ONE (07:59)
[2019-08-09 08:40] LABS: BASOPHILS % (AUTO) 0 % (0-10); EOSINOPHILS % (AUTO) 0 % (0-10); HEMATOCRIT 34 % (35-52); HEMOGLOBIN 11.5 G/DL (11.5-16.0); LYMPHOCYTES % (AUTO) 25 % (12-44); MEAN CORPUSCULAR HEMOGLOBIN 28 PG (25-34); MEAN CORPUSCULAR HGB CONC 34 G/DL (32-36); MEAN CORPUSCULAR VOLUME 83 FL (80-99); MEAN PLATELET VOLUME 11.7 FL (7.4-10.4); MONOCYTES # (AUTO) 0.6 X 10^3 (0.0-1.0); MONOCYTES % (AUTO) 7 % (0-12); NEUTROPHILS # (AUTO) 5.4 X 10^3 (1.8-7.8); NEUTROPHILS % (AUTO) 67 % (42-75); PLATELET COUNT 230 10^3/uL (130-400); RED CELL DISTRIBUTION WIDTH 12.2 % (10.0-14.5); WHITE BLOOD COUNT 8.1 10^3/uL (4.3-11.0)
[2019-08-09] MEDS: LACTATED RINGERS 1,000 ML IV SCH ×2 (08:45→11:54)
[2019-08-09] MEDS: MISOPROSTOL 100 MCG (CYTOTEC) TAB PO ONE ×2 (09:30→09:39)
[2019-08-09 10:00] LABS: BILIRUBIN,URINE NEGATIVE (NEGATIVE); CLARITY,URINE CLEAR; COLOR,URINE YELLOW; GLUCOSE, URINE (UA) NEGATIVE (NEGATIVE); KETONES,URINE NEGATIVE (NEGATIVE); LEUKOCYTE ESTERASE ,URINE NEGATIVE (NEGATIVE); NITRITE,URINE NEGATIVE (NEGATIVE); PH,URINE 6.5 (5-9); PROTEIN,URINE NEGATIVE (NEGATIVE)
[2019-08-09 10:12] LABS: BACTERIA,URINE NEGATIVE /HPF; SQUAMOUS EPITHELIAL CELL,UR 0-2 /HPF
--- NOTE | 2019-08-09 10:18 | NUR ---
Dr Lan notified per phone of pt's severe anxiety and her refusal to take Cytotec. No new orders.
[2019-08-09] MEDS ORDERED: fentaNYL INJECTION 100 MCG/2 ML AMP ONE (10:41)
[2019-08-09] MEDS ORDERED: BUPIVACAINE 0.25% 30 ML (SENSORCAINE) VIAL ONE (10:41)
[2019-08-09] MEDS ORDERED: fentaNYL 2 mcg/ml BUPIVA 0.125 100 ML ONE (10:46)
[2019-08-09] MEDS ORDERED: fentaNYL 2 mcg/ml BUPIVA 0.125 100 ML IV SCH (11:27)
[2019-08-09] MEDS ORDERED: LACTATED RINGERS 1,000 ML IV ONE (11:27)
[2019-08-09] MEDS ORDERED: NALOXONE 0.4 MG/ML 1 ML (NARCAN) VIAL IV PRN (11:30)
[2019-08-09] MEDS ORDERED: CATHETER FLUSH 10 ML SYR IV PRN (11:30)
[2019-08-09] MEDS ORDERED: EPIDURAL (fentaNYL 2 MCG/ML BUPIVA 0.125%)100 ML BAG EPI SCH (11:30)
--- NOTE | 2019-08-09 12:25 | NUR ---
Message to surgery for WOODWIND REEDS CUTTER - pt complaining of numbness and heaviness in arms and back up to axilla. [address] WOODWIND REEDS CUTTER here at pt bedside. Turned epidural off for 30 minutes and restarted at a lower continuous rate of 8. See labor notes. Pt very anxious. No desat's. LCTA. Pt can move legs and arms.
[2019-08-09] MEDS ORDERED: FAMO-119 PO (12:26)
[2019-08-09] MEDS ORDERED: OXYTOCIN PRE-MIX DRIP 500 ML IV SCH ×2 (13:34→19:11)
--- NOTE | 2019-08-09 13:34 | NUR ---
Dr Lan notified in surgery of pt vag exam of 3 cms. and request for Oxytocin.
[2019-08-09] MEDS ORDERED: OXYTOCIN PRE-MIX DRIP 500 ML IV ONE (13:37)
[2019-08-09] MEDS ORDERED: CALCIUM CARBONATE 500 MG (TUMS) TAB.CHEW ONE (14:39)
[2019-08-09] MEDS: CALCIUM CARBONATE 500 MG (TUMS) TAB.CHEW PO PRN (14:45)
[2019-08-09] MEDS ORDERED: MINERAL OIL CONCENTRATE 99.9% 15 ML UDC ONE (15:21)
[2019-08-09] MEDS ORDERED: LIDOCAINE/EPI 2% 1:200,00 (XYLOCAINE) 20 ML VIAL ONE (15:21)
--- NOTE | 2019-08-09 16:41 | NUR ---
PT had complained of pelvic pressure and increased pain from contractions so bolus'd per Cadd pump x 2. After that pt complained of moderate upper back and neck pain. No further contraction pain. Pt very anxious. Madonna Vasquez CRNA notified of the above. Will continue to monitor - no further orders. 1700 Pt still complains of upper back pain but has some relief with high lambert position. Pt still tense.
--- NOTE | 2019-08-09 18:25 | NUR ---
Pt 8-9 cms with strong urge to push. Dr Lan notified per phone.
--- NOTE | 2019-08-09 18:57 | NUR ---
Dr Lan at bedside. 1899 Delivery of viable male over intact perineum. Nuchal cord that was easily reduced by physician. Mom and baby doing well.
[2019-08-09] MEDS ORDERED: BENZOCAINE/MENTHOL (DERMOPLAST) 60 ML CAN TP PRN (19:15)
[2019-08-09] MEDS ORDERED: WITCH HAZEL(TUCKS) 40 EA JAR TOP PRN (19:15)
[2019-08-09] MEDS ORDERED: TETANUS,DIPTH,PERTUSS P/F (BOOSTRIX) 0.5 ML VIAL IM ONE (19:15)
[2019-08-09] MEDS ORDERED: MEASLES,MUMPS,RUBELLA 1 EA INJ SQ ONE (19:15)
--- NOTE | 2019-08-09 19:16 | OB Labor & Delivery Record ---
Vag Delivery Note Vag Delivery Note Date of Delivery: 08/09/19 Preoperative Diagnosis: Kaylah Webber is a 29 /Para 3/2 ,Gestational Age 39 2/7 weeks, GDM A1 Postoperative Diagnosis: Same Surgeon: FRANCK NESBITT Anesthesia: epidural Delivery Type: vaginal Findings: Viable male , apgars pending, weight 7#6 ounces Lacerations: none Intact placenta with 3 vessel cord. Nuchal cord x 1 reduced. No shoulder dystocia Estimated Blood Loss: 100 ml Complications: None Condition: Stable Description of Procedure: The patient is a 29 year old female who presented for induction of labor due to GDM at 39 1/7 weeks FSBS 78. She was admitted and informed consent was obtained. Her labor course was remarkable for AROM and then augmentation with oxytocin. She progressed to complete dilatation and began to push. She was then set up for delivery. The infant's head was delivered atraumatically in the KEVAN position. The shoulders and remainder of the infant's body were then delivered without difficulty. Upon delivery, the head was held below the level of the perineum and the mouth and nares were bulb suctioned. The cord was doubly clamped and cut and the was handed off to the pediatric staff. An intact placenta with 3-vessel cord delivered via Anita and there was found to be minimal bleeding.~ Vigorous fundal massage was performed and the fundus was found to be firm. IV oxytocin was given. Examination of the vagina and perineum revealed no laceration. Following the delivery, sponge, instrument and needle counts were correct. Mom and baby were both in stable condition in the labor suite. Vitals - Labs Vital Signs - I&O Vital Signs Date Time Temp Pulse Resp B/P (MAP) Pulse Ox O2 Delivery O2 Flow Rate FiO2 08/09/19 17:00 67 16 134/71 (92) Room Air 08/09/19 16:45 60 Room Air 08/09/19 16:30 35.7 60 16 125/71 (89) Room Air 08/09/19 16:15 61 125/68 (87) Room Air 08/09/19 16:00 71 122/66 (84) Room Air 08/09/19 15:45 60 125/71 (89) Room Air 08/09/19 15:30 62 120/68 (85) Room Air 08/09/19 15:15 71 129/73 (91) Room Air 08/09/19 15:00 35.9 68 128/71 (90) Room Air 08/09/19 14:45 61 141/77 (98) Room Air 08/09/19 14:30 90 143/94 (110) Room Air 08/09/19 14:15 63 16 139/81 (100) Room Air 08/09/19 14:00 61 126/81 (96) Room Air 08/09/19 13:45 35.8 73 149/73 (98) Room Air 08/09/19 13:30 59 154/75 (101) Room Air 08/09/19 13:15 73 128/94 (105) Room Air 08/09/19 13:00 56 112/69 (83) 98 08/09/19 12:45 67 126/75 (92) 100 08/09/19 12:30 72 124/71 (88) 100 08/09/19 12:15 63 124/58 (80) 99 08/09/19 12:00 35.6 74 117/79 (92) 100 08/09/19 11:45 73 113/68 (83) 99 08/09/19 11:30 75 16 124/74 (91) 100 08/09/19 11:22 76 127/75 (92) 100 08/09/19 11:15 84 134/72 (92) 99 08/09/19 11:01 37.0 92 20 143/97 (112) 100 Room Air 08/09/19 10:56 86 136/86 (103) 100 Room Air 08/09/19 10:50 98 130/81 (97) 100 Room Air 08/09/19 10:30 69 100 Room Air 08/09/19 10:00 66 130/81 (97) Room Air 08/09/19 09:59 36.8 75 20 137/82 98 08/09/19 09:40 150/91 (110) 08/09/19 09:22 67 16 145/84 (104) Room Air 08/09/19 07:45 36.8 75 16 98 Room Air 08/09/19 07:45 98 Room Air Labs Laboratory Tests 08/09/19 08:30: White Blood Count 8.1, Red Blood Count 4.12L, Hemoglobin 11.5, Hematocrit 34L, Mean Corpuscular Volume 83, Mean Corpuscular Hemoglobin 28, Mean Corpuscular Hemoglobin Concent 34, Red Cell Distribution Width 12.2, Platelet Count 230, Mean Platelet Volume 11.7H, Neutrophils (%) (Auto) 67, Lymphocytes (%) (Auto) 25, Monocytes (%) (Auto) 7, Eosinophils (%) (Auto) 0, Basophils (%) (Auto) 0, Neutrophils # (Auto) 5.4, Lymphocytes # (Auto) 2.0, Monocytes # (Auto) 0.6, Eosinophils # (Auto) 0.0, Basophils # (Auto) 0.0 08/09/19 09:30: Urine Color YELLOW, Urine Clarity CLEAR, Urine pH 6.5, Urine Specific [place] <=1.005, Urine Protein NEGATIVE, Urine Glucose (UA) NEGATIVE, Urine Ketones NEGATIVE, Urine Nitrite NEGATIVE, Urine Bilirubin NEGATIVE, Urine Urobilinogen 0.2, Urine Leukocyte Esterase NEGATIVE, Urine RBC (Auto) NEGATIVE, Urine RBC NONE, Urine WBC NONE, Urine Squamous Epithelial Cells 0-2, Urine Crystals NONE, Urine Bacteria NEGATIVE, Urine Casts NONE, Urine Mucus NEGATIVE, Urine Culture Indicated NO FRANCK NESBITT DO August 09, 2019 19:16
[2019-08-09] MEDS: CATHETER FLUSH 10 ML SYR IV SCH (19:50)
[2019-08-09] MEDS ORDERED: IBUPROFEN 600 MG (MOTRIN) TAB PO ONE (20:03)
[2019-08-09] MEDS: ACETAMINOPHEN 500 MG TAB (TYLENOL) PO SCH (20:15)
[2019-08-09] MEDS: IBUPROFEN 600 MG (MOTRIN) TAB PO SCH (20:15)
[2019-08-09] MEDS ORDERED: CATHETER FLUSH 10 ML SYR IV SCH (22:00)
--- NOTE | 2019-08-10 00:18 | NUR ---
FSBS lab @ this time not drawn on pt, drawn on infant, wrong band scanned per RN.
[2019-08-10] MEDS: CATHETER FLUSH 10 ML SYR IV SCH ×2 (01:22→06:44)
[2019-08-10 01:26] VITALS: BP 99/56
[2019-08-10] MEDS: IBUPROFEN 600 MG (MOTRIN) TAB PO SCH ×4 (01:26→18:53)
[2019-08-10 03:22] VITALS: BP 134/77
[2019-08-10] MEDS: ACETAMINOPHEN 500 MG TAB (TYLENOL) PO SCH ×3 (03:22→21:45)
[2019-08-10] MEDS: DOCUSATE SODIUM 100 MG (COLACE) CAP PO SCH ×3 (03:22→21:45)
[2019-08-10 05:29] LABS: BASOPHILS % (AUTO) 0 % (0-10); EOSINOPHILS % (AUTO) 0 % (0-10); HEMATOCRIT 32 % (35-52); HEMOGLOBIN 10.4 G/DL (11.5-16.0); LYMPHOCYTES # (AUTO) 1.9 X 10^3 (1.0-4.0); LYMPHOCYTES % (AUTO) 14 % (12-44); MEAN CORPUSCULAR HEMOGLOBIN 28 PG (25-34); MEAN CORPUSCULAR HGB CONC 33 G/DL (32-36); MEAN CORPUSCULAR VOLUME 84 FL (80-99); MEAN PLATELET VOLUME 11.7 FL (7.4-10.4); MONOCYTES % (AUTO) 7 % (0-12); NEUTROPHILS # (AUTO) 10.8 X 10^3 (1.8-7.8); NEUTROPHILS % (AUTO) 79 % (42-75); PLATELET COUNT 188 10^3/uL (130-400); RED CELL DISTRIBUTION WIDTH 12.2 % (10.0-14.5); WHITE BLOOD COUNT 13.7 10^3/uL (4.3-11.0)
--- NOTE | 2019-08-10 08:44 | Postpartum Progress Note ---
Note Note Day # 1 s/p Subjective: Patient is without complaints. Ambulating, voiding. Tolerating a regular diet w ithout nausea or vomiting. Normal lochia. Pain is well controlled with oral pain medications. [] feeding. [] Objective: 08/09/19 08/09/19 08/09/19 08/10/19 21:00 21:30 22:00 01:26 Temp 36.6 36.5 36.5 Pulse 58 64 65 59 Resp 20 18 18 18 B/P (MAP) 129/75 (93) 131/80 (97) 123/66 (85) 99/56 (70) Pulse Ox 97 96 O2 Delivery Room Air Room Air Room Air Room Air 08/10/19 03:22 Temp 36.1 Pulse 59 Resp 18 B/P (MAP) 134/77 (96) Pulse Ox 96 O2 Delivery Room Air Laboratory Tests Test 08/09/19 09:30 08/10/19 00:18 08/10/19 05:20 Range/Units Urine Color YELLOW Urine Clarity CLEAR Urine pH 6.5 5-9 Urine Specific [place] <=1.005 1.016-1.022 Urine Protein NEGATIVE NEGATIVE Urine Glucose (UA) NEGATIVE NEGATIVE Urine Ketones NEGATIVE NEGATIVE Urine Nitrite NEGATIVE NEGATIVE Urine Bilirubin NEGATIVE NEGATIVE Urine Urobilinogen 0.2 < = 1.0 MG/DL Urine Leukocyte Esterase NEGATIVE NEGATIVE Urine RBC (Auto) NEGATIVE NEGATIVE Urine RBC NONE /HPF Urine WBC NONE /HPF Urine Squamous Epithelial Cells 0-2 /HPF Urine Crystals NONE /LPF Urine Bacteria NEGATIVE /HPF Urine Casts NONE /LPF Urine Mucus NEGATIVE /LPF Urine Culture Indicated NO Glucometer 66 L 70-110 MG/DL White Blood Count 13.7 H 4.3-11.0 10^3/uL Red Blood Count 3.75 L 4.35-5.85 10^6/uL Hemoglobin 10.4 L 11.5-16.0 G/DL Hematocrit 32 L 35-52 % Mean Corpuscular Volume 84 80-99 FL Mean Corpuscular Hemoglobin 28 25-34 PG Mean Corpuscular Hemoglobin Concent 33 32-36 G/DL Red Cell Distribution Width 12.2 10.0-14.5 % Platelet Count 188 130-400 10^3/uL Mean Platelet Volume 11.7 H 7.4-10.4 FL Neutrophils (%) (Auto) 79 H 42-75 % Lymphocytes (%) (Auto) 14 12-44 % Monocytes (%) (Auto) 7 0-12 % Eosinophils (%) (Auto) 0 0-10 % Basophils (%) (Auto) 0 0-10 % Neutrophils # (Auto) 10.8 H 1.8-7.8 X 10^3 Lymphocytes # (Auto) 1.9 1.0-4.0 X 10^3 Monocytes # (Auto) 1.0 0.0-1.0 X 10^3 Eosinophils # (Auto) 0.0 0.0-0.3 10^3/uL Basophils # (Auto) 0.0 0.0-0.1 10^3/uL Glucose Level 96 70-105 MG/DL Physical Exam: General - Alert and oriented, no apparent distress Abdomen - Soft, appropriately tender to palpation, non-distended, fundus firm at umbilicus Extremities - no edema, negative Mark's bilaterally [] Assessment: [] post- day # [], status post [] vaginal delivery. Recovering well, hemodynamically stable [] Plan: Routine care. Encourage breast feeding. Encourage ambulation. Ferrous sulfate supplementation. Plan for discharge [] Vitals - Labs Vital Signs - I&O Vital Signs Date Time Temp Pulse Resp B/P (MAP) Pulse Ox O2 Delivery O2 Flow Rate FiO2 08/10/19 03:22 36.1 59 18 134/77 (96) 96 Room Air 08/10/19 01:26 36.5 59 18 99/56 (70) 96 Room Air 08/09/19 22:00 36.5 65 18 123/66 (85) 97 Room Air 08/09/19 21:30 64 18 131/80 (97) Room Air 08/09/19 21:00 36.6 58 20 129/75 (93) Room Air 08/09/19 20:30 69 18 144/82 (102) Room Air 08/09/19 20:15 77 18 157/96 (116) Room Air 08/09/19 20:00 36.7 60 20 137/73 (94) Room Air 08/09/19 19:45 58 20 124/74 (91) Room Air 08/09/19 19:30 36.5 62 18 134/68 (90) Room Air 08/09/19 19:15 37.0 74 18 132/77 (95) Room Air 08/09/19 19:00 128/68 (88) Room Air 08/09/19 18:45 128/68 (88) Room Air 08/09/19 18:30 90 138/72 (94) 100 Room Air 08/09/19 18:15 64 155/84 (107) 100 Room Air 08/09/19 18:00 75 121/79 (93) 100 Room Air 08/09/19 17:45 78 121/75 (90) Room Air 08/09/19 17:30 81 126/74 (91) Room Air 08/09/19 17:15 60 131/71 (91) Room Air 08/09/19 17:00 67 16 134/71 (92) Room Air 08/09/19 16:45 60 Room Air 08/09/19 16:30 35.7 60 16 125/71 (89) Room Air 08/09/19 16:15 61 125/68 (87) Room Air 08/09/19 16:00 71 122/66 (84) Room Air 08/09/19 15:45 60 125/71 (89) Room Air 08/09/19 15:30 62 120/68 (85) Room Air 08/09/19 15:15 71 129/73 (91) Room Air 08/09/19 15:00 35.9 68 128/71 (90) Room Air 08/09/19 14:45 61 141/77 (98) Room Air 08/09/19 14:30 90 143/94 (110) Room Air 08/09/19 14:15 63 16 139/81 (100) Room Air 08/09/19 14:00 61 126/81 (96) Room Air 08/09/19 13:45 35.8 73 149/73 (98) Room Air 08/09/19 13:30 59 154/75 (101) Room Air 08/09/19 13:15 73 128/94 (105) Room Air 08/09/19 13:00 56 112/69 (83) 98 08/09/19 12:45 67 126/75 (92) 100 08/09/19 12:30 72 124/71 (88) 100 08/09/19 12:15 63 124/58 (80) 99 08/09/19 12:00 35.6 74 117/79 (92) 100 08/09/19 11:50 86 113/84 (94) 99 Room Air 08/09/19 11:45 73 113/68 (83) 99 08/09/19 11:37 69 115/63 (80) 100 08/09/19 11:30 75 16 124/74 (91) 100 08/09/19 11:27 85 127/77 (94) 100 08/09/19 11:22 76 127/75 (92) 100 08/09/19 11:15 84 134/72 (92) 99 08/09/19 11:01 37.0 92 20 143/97 (112) 100 Room Air 08/09/19 10:56 86 136/86 (103) 100 Room Air 08/09/19 10:50 98 130/81 (97) 100 Room Air 08/09/19 10:30 69 100 Room Air 08/09/19 10:00 66 130/81 (97) Room Air 08/09/19 09:59 36.8 75 20 137/82 98 08/09/19 09:40 150/91 (110) 08/09/19 09:22 67 16 145/84 (104) Room Air I & O 08/10/19 07:00 Intake Total 2000 ml Balance 2000 ml Labs Laboratory Tests 08/09/19 09:30: Urine Color YELLOW, Urine Clarity CLEAR, Urine pH 6.5, Urine Specific [place] <=1.005, Urine Protein NEGATIVE, Urine Glucose (UA) NEGATIVE, Urine Ketones NEGATIVE, Urine Nitrite NEGATIVE, Urine Bilirubin NEGATIVE, Urine Urobilinogen 0.2, Urine Leukocyte Esterase NEGATIVE, Urine RBC (Auto) NEGATIVE, Urine RBC NONE, Urine WBC NONE, Urine Squamous Epithelial Cells 0-2, Urine Crystals NONE, Urine Bacteria NEGATIVE, Urine Casts NONE, Urine Mucus NEGATIVE, Urine Culture Indicated NO 08/10/19 00:18: Glucometer 66L 08/10/19 05:20: White Blood Count 13.7H, Red Blood Count 3.75L, Hemoglobin 10.4L, Hematocrit 32L , Mean Corpuscular Volume 84, Mean Corpuscular Hemoglobin 28, Mean Corpuscular Hemoglobin Concent 33, Red Cell Distribution Width 12.2, Platelet Count 188, Mean Platelet Volume 11.7H, Neutrophils (%) (Auto) 79H, Lymphocytes (%) (Auto) 14, Monocytes (%) (Auto) 7, Eosinophils (%) (Auto) 0, Basophils (%) (Auto) 0, Neutrophils # (Auto) 10.8H, Lymphocytes # (Auto) 1.9, Monocytes # (Auto) 1.0, Eosinophils # (Auto) 0.0, Basophils # (Auto) 0.0, Glucose Level 96 FRANCK NESBITT DO August 10, 2019 08:44
[2019-08-10 08:49] VITALS: BP 108/67
[2019-08-10] MEDS: FERROUS SULF 325 MG (IRON) TAB PO SCH (08:52)
[2019-08-10] MEDS: PRENATAL VITAMIN 1 EA TAB PO SCH (08:52)
--- NOTE | 2019-08-10 08:57 | NUR ---
PT IN BED, S/O @ THE BEDSIDE. SELF INTRODUCED. VS OBTAINED. MEDS GIVEN; SEE EMAR FOR FURTHER. INITIAL SHIFT ASSESSMENT COMPLETED; SEE INTERVENTION. IV DC'D. CATHETER TIP INTACT. GAUZE AND BAND AID APPLIED OVER SITE. SHOWER SET UP. PT PREPPING TO GET IN WHILE RN REMAINS IN THE ROOM TO ASSESS . NO NEEDS OR QUESTIONS VOICED.
[2019-08-10] MEDS: CALCIUM CARBONATE 500 MG (TUMS) TAB.CHEW PO PRN ×2 (10:16→21:50)
--- NOTE | 2019-08-10 12:44 | Anesthesia-Regional Post-Op ---
Regional Patient Condition Mental Status: Alert, Oriented x3 Circulation: Same as Pre-Op Headache: Present Sensation: Full Recovery Motor Block: Absent Post Op Complications Complications Patient with possible PDPH. Symptoms are vague at this time. Informed patient to increase fluid, caffeine, and salt intake. Follow Up Care/Instructions Patient Instructions Informed patient to have nursing staff call us if headache gets worse while in [facility]. Informed patient to call OB or her physician if headache worsened or persisted for more than 14 days while at home so they could have anesthesia evaluate pt. Anesthesia/Patient Condition Patient is doing well, stable vital signs, no apparent adverse anesthesia problems other than noted above. No complications reported per nursing. BRANDON ALFONSO CRNA August 10, 2019 12:44
[2019-08-10 13:20] VITALS: BP 110/66
[2019-08-10] MEDS: CYCLOBENZAPRINE 10 MG (FLEXERIL) TAB PO PRN ×2 (17:11→22:33)
[2019-08-10 17:14] VITALS: BP 127/69
[2019-08-11 00:06] VITALS: BP 142/85
[2019-08-11] MEDS: IBUPROFEN 600 MG (MOTRIN) TAB PO SCH ×4 (00:06→17:49)
[2019-08-11 06:14] VITALS: BP 134/85
[2019-08-11] MEDS: CYCLOBENZAPRINE 10 MG (FLEXERIL) TAB PO PRN ×3 (06:14→17:55)
[2019-08-11] MEDS: ACETAMINOPHEN 500 MG TAB (TYLENOL) PO SCH ×2 (06:14→14:26)
--- NOTE | 2019-08-11 08:15 | NUR ---
THIS RN TO BEDSIDE. PT INQUIRING ABOUT PHYSICIAN ROUNDING AND ABOUT GETTING A BLOOD PATCH, PT REMAINS IN PAIN AND UNABLE TO MOVE WITHOUT HURTING OR HAVING A HEADACHE. Paula ALFONSO CONDOMINIUM MANAGER NOTIFIED, WILL BE AVAILABLE THIS AFTERNOON, PT INFORMED AND VERBALIZES UNDERSTANDING. COKE PROVIDED WITH A CUP OF ICE. PLAN OF CARE REVIEWED WITH PT AND S/O; UNDERSTANDING VERBALIZED AND NO FURTHER NEEDS OR QUESTIONS VOICED. CALL LIGHT WITHIN REACH.
--- NOTE | 2019-08-11 09:21 | NUR ---
Paula FAIRCHILD, DIRECTOR OF , TO PT'S BEDSIDE PER REQUEST.
[2019-08-11 10:08] VITALS: BP 103/57
[2019-08-11] MEDS: DOCUSATE SODIUM 100 MG (COLACE) CAP PO SCH (10:10)
[2019-08-11] MEDS: PRENATAL VITAMIN 1 EA TAB PO SCH (10:11)
[2019-08-11] MEDS: FERROUS SULF 325 MG (IRON) TAB PO SCH (10:11)
--- NOTE | 2019-08-11 10:15 | NUR ---
PT LYING IN BED. VS OBTAINED. COLACE GIVEN PO; SEE EMAR FOR FURTHER. PT REFUSES OTHER SCHEDULED MEDICATIONS AT THIS TIME. PHYSICAL ASSESSMENT COMPLETED; SEE INTERVENTION FOR FURTHER. S/O REMAINS AT THE BEDSIDE. NO NEEDS OR QUESTIONS VOICED. CALL LIGHT WITHIN REACH.
--- NOTE | 2019-08-11 11:48 | Postpartum Progress Note ---
Note Note Day # 2 s/p , GDM Patient was in bathroom yesterday when I came by. Complained of upper back pain not treated with ibuprofen or tylenol. Rx cyclobenzoprine. However, today she has told RN there is a headache when she moves or sits up. She has declined narcotic. She does not have IV She is sleeping and I did not wake her when I rounded. anesthesia has said they will see her this afternoon. She has not been drinking excess fluids or caffeine as suggested. No dyspnea, No SOA. No other pain. Some tingling in fingers. Subjective: Patient is without complaints. Ambulating, voiding. Tolerating a regular diet without nausea or vomiting. Normal lochia. Pain is well controlled with oral pain medications. Objective: 08/11/19 08/11/19 08/11/19 00:06 06:14 10:08 Temp 37.0 36.4 37.0 Pulse 59 70 71 Resp 18 18 18 B/P (MAP) 142/85 (104) 134/85 (101) 103/57 (72) Pulse Ox 98 98 97 O2 Delivery Room Air Room Air Room Air Physical Exam: General - Alert and oriented, no apparent distress Abdomen - Soft, appropriately tender to palpation, non-distended, fundus firm at umbilicus Extremities - no edema, negative Mark's bilaterally Assessment: post- day # 2, status post vaginal delivery. Recovering well, hemodynamically stable 2. Upper back pain - likely MS and due to positioning, pushing, holding baby - continue cyclobenzaprine/ heat/ showers, suggest massage - appreciate input by anesthesia. Plan: Routine care. Encourage ambulation. Plan for discharge - held for now Vitals - Labs Vital Signs - I&O Vital Signs Date Time Temp Pulse Resp B/P (MAP) Pulse Ox O2 Delivery O2 Flow Rate FiO2 08/11/19 10:08 37.0 71 18 103/57 (72) 97 Room Air 08/11/19 06:14 36.4 70 18 134/85 (101) 98 Room Air 08/11/19 00:06 37.0 59 18 142/85 (104) 98 Room Air 08/10/19 17:14 36.3 53 18 127/69 (88) 97 Room Air 08/10/19 13:20 37.0 65 18 110/66 (81) 97 Room Air Labs Microbiology 08/09/19 Urine Culture - Preliminary, Resulted Culture In Progress FRANCK NESBITT DO August 11, 2019 11:48
[2019-08-11] MEDS ORDERED: IBUP-844 PO (11:50)
[2019-08-11] MEDS ORDERED: CYCL10TA9 PO (11:50)
[2019-08-11] MEDS ORDERED: ACET-93 PO (11:50)
--- NOTE | 2019-08-11 11:54 | Discharge Inst-Women's Service ---
Discharge Inst-Women's Serv Depart Medication/Instructions New, Converted or Re-Newed RX: Transmitted to Pharmacy Instructions gestational diabetes induction of labor epidural Final Diagnosis same Problems Reviewed?: Yes Consults/Follow Up Additional Follow Up: Yes (6 weeks; 2 hour glucola at 6 week pp visit. Call to set up) Activity Activity: Activity as Tolerated Driving Instructions: You May Drive NO SMOKING: NO SMOKING Nothing Inside Vagina: No Douching, No [place], No Tampons Diet Discharge Diet: No Restrictions Symptoms to Report to : Swelling Increased, Bleeding Excessive, Pain Increased, Fever Over 101 Degrees F, Vaginal Bleeding Increase, Cramps in Feet or Legs, Vaginal Discharge Foul For Any Problems or Questions: Contact Your Physician FRANCK NESBITT DO August 11, 2019 11:54
--- NOTE | 2019-08-11 12:08 | NUR ---
THIS RN AND DR. NESBITT TO PT'S BEDSIDE, PT SLEEPING. WILL RETURN AT A LATER TIME.
--- NOTE | 2019-08-11 13:40 | NUR ---
SIX (6) WEEK POST FOLLOW UP APPOINTMENT MADE WITH JERSEY NESBITT'S OFFICE. August @ 1:30 PM.
[2019-08-11 14:25] VITALS: BP 130/74
--- NOTE | 2019-08-11 14:34 | NUR ---
Paula ALFONSO, COW WASHER TO PT'S BEDSIDE.
--- NOTE | 2019-08-11 15:05 | NUR ---
PT TRANSFERRED FROM [facility] TO [facility] VIA W/C IN STABLE CONDITION TO COMPLETE A BLOOD PATCH PROCEDURE. CONSENT OBTAINED.
--- NOTE | 2019-08-11 15:30 | NUR ---
BLOOD PATCH COMPLETED PER Paula ALFONSO CRNA. PT PLACED SUPINE, WILL LEAVE IN THIS POSITION FOR APPROX 15-20 MINS BEFORE MOVING BACK TO POST ROOM.
--- NOTE | 2019-08-11 15:54 | NUR ---
DR. NESBITT UPDATED ON PT RECEIVING BLOOD PATCH. PT DOING MUCH BETTER.
--- NOTE | 2019-08-11 16:21 | Anesthesia-Procedure Note ---
Procedures/Interventions Procedure Start/Stop/Diagnosis Date of Procedure: August 11, 2019 Start Time: 15:00 Stop Time: 15:30 Blood Patch Blood Patch 1434-Spoke with patient about symptoms from the day, Headache with position change, photosensitivity, soreness in neck, and being unable to perform her ADL's without significant disruption. Spoke with patient again about the risks and benefits of an epidural blood patch. Patient voiced significant concern about the procedure due to the "difficulty" of having her labor epidural place. The patient and I spoke for about 10 min about her concerns and she wanted to speak with her significant other and family prior to proceeding. 1455-Spoke to a family member on the phone who stated she was an OB elsewhere at the patients request. After speaking to family the patient decide that attempting a blood patch was her best option for relief. 1500-Pt moved to another room with a more accommodating bed to facilitate the procedure. Consent was obtained. While attempting to get patient into position she had several bouts of nausea. She also requested that her SO be in the room during her procedure. The nurse and I accommodated the request. I then palpated the patients back to ID the space that was going to allow myself to have the best chance to be successful with the procedure. Hips and backs were palpated and L3/4 interspace was ID'd. Patient was prepped and draped in usual fashion. Pt positioned 1% lidocaine used for skin local, 3cc's. 17g Tuohy needle placed, CLOR used, epidural space found at 8 cm. (-) CSF, Heme, or paresthesia. RN draw 20cc of blood in sterile fashion form patients arm. Blood attached to Tuohy and slowly injected into patients epidural space. Patient was able to tolerate all 20cc's with minimal cramping. Touhy removed and patient positioned in supine position for 15 min. Patient tolerated procedure well. 1550-Checked on patient. Stood patient up to move her back to her pervious room. Stated her headache was much better and very little pain in her neck and shoulders. Care to RN. BRANDON ALFONSO CRNA August 11, 2019 16:21
--- NOTE | 2019-08-11 16:24 | NUR ---
DR. NESBITT INFORMED OF PT STILL HAVING HEADACHE BUT HAS SIGNIFICANTLY IMPROVED, UPPER BACK PAIN GONE, ABLE TO SIT UP AND TOLERATE IT.
--- NOTE | 2019-08-11 16:41 | NUR ---
DR. NESBITT CALLED THIS RN. PT IS ABLE TO BE DISCHARGED AT THIS TIME. PLANS TO HAVE STAFF CALL PT TOMORROW TO CHECK ON HER.
--- NOTE | 2019-08-11 17:30 | NUR ---
DISCHARGE PAPERS PROVIDED AND REVIEWED WITH PT, PT VERBALIZES UNDERSTANDING AND DENIES ANY QUESTIONS AT THIS TIME. PAPER SIGNED.
--- NOTE | 2019-08-11 18:00 | NUR ---
PT DISCHARGED FROM -311 TO [facility] VIA AMBULATORY IN STABLE CONDITION ACC BY THIS RN, S/O AND INFANT.
== END 2019-08-11 18:00 | disposition home or self-care (01) | DRG 807 ==
LOC: LDRP 06:59
PROVIDERS: ADMIT Obstetrics & Gynecology; ATTEND Obstetrics & Gynecology
PROC: 10E0XZZ Delivery of Products of Conception, External Approach (ICD-10-PCS; principal; 2019-08-09)
DX: O24.420 Gestational diabetes mellitus in childbirth, diet controlled (principal); O69.81X0 Labor and delivery complicated by cord around neck, without compression, not applicable or unspecified; Z37.0 Single live birth; Z3A.39 39 weeks gestation of pregnancy
CPT/HCPCS: 36415; 81000; 82947; 82962; 85025; 86850; 86900; 86901; 87077; 87088